=== PATIENT | female | born 1975 | race Caucasian/White ===

== ENCOUNTER 2022-08-26 20:22 | Outpatient (REF) | payer BC, SELFPAY ==
[2022-08-31 08:10] LABS: Age Gdln ACOG Testing Note (.); HPV Aptima Negative (Negative); IGP, Aptima HPV, rfx 16/18,45 Note (.)
== END 2022-08-26 20:23 | disposition home or self-care (01) ==
LOC: LAB 20:22
PROVIDERS: PCP Family Medicine; Visit Provider Physician Assistant
DX: Z12.4 Encounter for screening for malignant neoplasm of cervix (principal); Z11.51 Encounter for screening for human papillomavirus (HPV)
CPT/HCPCS: 87624; G0145

== ENCOUNTER 2022-12-17 15:35 | Outpatient (OUT) | payer BC, SELFPAY ==
[2022-12-17 15:55] LABS: Basophils Percent Auto 0.5 % (0.2-2.0); Eosinophils Absolute Auto 0.1 10^3/uL (0.0-0.7); Eosinophils Percent Auto 1.5 % (0.9-7.0); Hematocrit 41.6 % (36.0-48.0); Immature Granulocytes Abs Auto 0.02 10^3/uL (0.00-0.03); Immature Granulocytes Pct Auto 0.3 % (0.0-0.5); Lymphocytes Absolute Auto 1.8 10^3/uL (1.2-3.8); Lymphocytes Percent Auto 27.1 % (20.5-60.0); Mean Corpuscular HGB Conc 31.3 g/dL (29.9-35.2); Mean Corpuscular Hemoglobin 28.3 pg (26.7-34.0); Mean Corpuscular Volume 90.6 fL (81.0-99.0); Mean Platelet Volume 10.5 fL (9.5-13.5); Monocytes Absolute Auto 0.5 10^3/uL (0.3-0.8); Monocytes Percent Auto 8.3 % (1.7-12.0); Neutrophils Absolute Auto 4.1 10^3/uL (1.4-6.5); Neutrophils Percent Auto 62.3 % (43.0-75.0); Platelet Count 223 10^3/uL (150-450); Red Blood Count 4.59 10^6/uL (4.20-5.40); Red Cell Distribution Width 13.6 % (11.0-15.0); White Blood Count 6.5 10^3/uL (4.0-11.0)
[2022-12-17 16:15] LABS: Estimated Average Glucose 91 mg/dL; Glycohemoglobin A1C 4.8 % (4.5-6.2)
[2022-12-17 16:26] LABS: Alanine Aminotransferase 37 U/L (14-59); Albumin Globulin Ratio 1.1; Albumin Level 3.5 g/dL (3.4-5.0); Alkaline Phosphatase 68 U/L (46-116); Anion Gap 9.8; Aspartate Amino Transferase 22 U/L (15-37); BUN Creatinine Ratio 13.2; Bilirubin Direct 0.1 mg/dL (0.0-0.2); Bilirubin Total 0.4 mg/dL (0.2-1.0); Calcium 8.8 mg/dL (8.5-10.1); Carbon Dioxide 30.8 mmol/L (21.0-32.0); Chloride 101 mmol/L (98-107); Chol HDL Ratio 2.9; Cholesterol 226 mg/dL (<=200); Estimated GFR (African America >60 (>=60); Estimated GFR (Non-African Ame >60 (>=60); Globulin 3.3 g/dL; Glucose 85 mg/dL (74-106); HDL Cholesterol 79 mg/dL (40-60); Potassium 3.6 mmol/L (3.5-5.1); Sodium 138 mmol/L (136-145); Total Protein 6.8 g/dL (6.4-8.2); Triglycerides 67 mg/dL (<=150); VLDL CHOLESTEROL 13.4 mg/dL
== END 2022-12-17 15:36 | disposition home or self-care (01) ==
LOC: LAB 15:37
PROVIDERS: PCP Family Medicine; Visit Provider Family Medicine
DX: Z00.00 Encounter for general adult medical examination without abnormal findings (principal)
CPT/HCPCS: 36415; 80048; 80061; 80076; 83036; 84443; 85025

== ENCOUNTER 2023-07-09 11:11 | Outpatient (OUT) | payer BC, SELFPAY ==
--- OUTSIDE RECORDS SUMMARY | 2023-07-09 11:25 | XMS_ITS | CCD ---
Author Organization [facility] Care Team Providers Care Staff Development Coordinator Rn Name Role Phone ANJELICA ., DR JARVIS Admitting Unavailable ANJELICA ., DR JARVIS Attending Unavailable NADERER, DR ERMIAS Chávez Primary Care Unavailable ANJELICA ., DR JARVIS Consulting Unavailable ZIEBER, DR ADARSH Diego Consulting Unavailable NADERER, DR ERMIAS Chávez Admitting Unavailable NADERER, DR ERMIAS Chávez Attending Unavailable NADERER, DR ERMIAS Chávez Primary Care Unavailable NADERER, DR ERMIAS Chávez Consulting Unavailable NADERER, DR ERMIAS Chávez Admitting Unavailable NADERER, DR ERMIAS Chávez Attending Unavailable NADERER, DR ERMIAS Chávez Primary Care Unavailable NADERER, DR ERMIAS Chávez Consulting Unavailable NADERER, ERMIAS Attending Unavailable Allergies Allergy Classification Reported Allergen(s) Allergy Type Date of Onset Reaction(s) Facility (1 source) Omeprazole Drug Allergy [facility] Repository Problems Active Problems Problem Classification Problem Date Documented Da te Episodic/Chronic Other screening for suspected conditions (not mental disorders or infectious disease) (4 sources) Encounter for screening mammogram for malignant neoplasm of breast; Translations: [ENC SCR MAMMO MALIG NEOPLASM BREAST] Onset: 05-07-2022 Episodic Unclassified (2 sources) CONTACT W/AND (SUSP) EXPOS COVID-19; Translations: [CONTACT W/AND (SUSP) EXPOS COVID-19] Onset: 01-31-2022 Viral infection (1 source) COVID-19; Translations: [COVID-19] Onset: 01-31-2022 Past or Other Problems Problem Classification Problem Date Documented Da te Episodic/Chronic Unclassified (1 source) CONTACT W/AND (SUSP) EXPOS COVID-19; Translations: [CONTACT W/AND (SUSP) EXPOS COVID-19] Onset: 01-27-2022 Results Test Name Value Interpretation Reference Range Facility MG MAMM SCREEN 3D ANDRY CADon 05-07-2022 MG MAMM SCREEN 3D ANDRY CAD Patient: SEBAS BARBER Exam Date: 05/07/2022 : 1975 Gender:F Ordering : DR SIMONA DEJESUS . Admission #: [id number] Family : Order #: [id number] CLICK HERE TO VIEW EXAM RADIOLOGY REPORT PROCEDURE: MAMMOGRAM SCREENING 3D BILATERAL CAD COMPARISON: MG MAMM DX 3D LT CAD, 07/25/2020. US BREAST LEFT LIMITED, 01/02/2020. MG MAMM ANDRY SCRN W CAD DIG, 03/06/2013. MG MAMM SCREEN 3D ANDRY CAD, 04/24/2021. INDICATIONS: Screening mammography Calculator Name NCI Breast Cancer Risk Assessment Tool 5 Year Breast Cancer Risk 1.20% Lifetime Breast Cancer Risk 12.80% Personal Breast Cancer No Personal Ovarian Cancer No Treatments None Family Cancers None LOCATION: [facility] BREAST COMPOSITION: Scattered areas fibroglandular density. FINDINGS: DIAGNOSTIC CATEGORY 1--NEGATIVE. RIGHT BREAST: No significant suspicious finding. No significant change has occurred. LEFT BREAST: No significant suspicious finding. No significant change has occurred. RECOMMENDATIONS: ROUTINE MAMMOGRAM AND CLINICAL EVALUATION IN 12 MONTHS. PLEASE NOTE: A NORMAL MAMMOGRAM DOES NOT EXCLUDE THE POSSIBILITY OF BREAST CANCER. A CLINICALLY SUSPICIOUS PALPABLE LUMP SHOULD BE BIOPSIED. Dictated by: Adarsh Jimenez M.D. on 05/08/2022 at 07:22 Approved by: Adarsh Jimenez M.D. on 05/08/2022 at 07:33 Normal [facility] Covid-19 PCR (CVDTBH)on 01-15 SARS-CoV-2 (COVID-19) RNA SINDI+probe Ql (Unsp spec) Detected Critically abnormal NOT DETECTED [facility] Comment on above: Result Comment: This test is not yet approved or cleared by the [place] FDA. When there are no FDA-approved or cleared tests available, and other criteria are met, FDA can make tests available under an emergency access mechanism called an Emergency Use Authorization (EUA). The EUA for this test is supported by the Har[employer] Rep[employer] of Health and Human Service's (HHS's) declaration that circumstances exist to justify the emergency use of in vitro diagnostics for the detection and/or diagnosis of the virus that causes COVID-19. This EUA will remain in effect (meaning this test can be used) for the duration of the COVID-19 declaration justifying emergency of IVDs, unless it is terminated or revoked by FDA (after which the test may no longer be used). Performed By: #### C VDTBH #### [facility] [address] [place] [address] Dr. Abby Kumar CBC AUTO DIFFon 12-04-2021 BASO # 0.0 103/ul Normal 0.0-0.1 [facility] Comment on above: Performed By: #### L IPID, TSH, BMP, LIVER #### [facility] [address] [place] [address] Dr. Abby Kumar Basophils/100 WBC (Bld) 0.4 % Normal 0.2-2.0 [facility] Comment on above: Performed By: #### L IPID, TSH, BMP, LIVER #### [facility] [address] [place] [address] Dr. Abby Kumar EO # 0.1 103/ul Normal 0.0-0.7 [facility] Comment on above: Performed By: #### L IPID, TSH, BMP, LIVER #### [facility] [address] [place] [address] Dr. Abby Kumar Eosinophils/100 WBC (Bld) 2.4 % Normal 0.9-7.0 [facility] Comment on above: Performed By: #### L IPID, TSH, BMP, LIVER #### [facility] [address] [place] [address] Dr. Abby Kumar Erythrocyte distribution width (RBC) [Ratio] 14.4 % Normal 11.0-15.0 [facility] Comment on above: Performed By: #### L IPID, TSH, BMP, LIVER #### [facility] [address] [place] [address] Dr. Abby Kumar Hematocrit (Bld) [Volume fraction] 41.0 % Normal 36.0-48.0 [facility] Comment on above: Performed By: #### L IPID, TSH, BMP, LIVER #### [facility] [address] [place] [address] Dr. Abby Kumar Hemoglobin (Bld) [Mass/Vol] 12.9 g/dL Normal 12.0-16.0 [facility] Comment on above: Performed By: #### L IPID, TSH, BMP, LIVER #### [facility] [address] [place] [address] Dr. Abby Kumar IG # 0.01 10e3/ul Normal 0.00-0.03 [facility] Comment on above: Performed By: #### L IPID, TSH, BMP, LIVER #### [facility] [address] [place] [address] Dr. Abby Kumar IG % 0.2 % Normal 0.0-0.5 [facility] Comment on above: Performed By: #### L IPID, TSH, BMP, LIVER #### [facility] [address] [place] [address] Dr. Abby Kumar LYMPH # 1.8 103/ul Normal 1.2-3.8 [facility] Comment on above: Performed By: #### L IPID, TSH, BMP, LIVER #### [facility] [address] [place] [address] Dr. Abby Kumar Lymphocytes/100 WBC (Bld) 35.7 % Normal 20.5-60.0 [facility] Comment on above: Performed By: #### L IPID, TSH, BMP, LIVER #### [facility] [address] [place] [address] Dr. Abby Kumar MANUAL DIFF REQ NO Normal [facility] Comment on above: Performed By: #### L IPID, TSH, BMP, LIVER #### [facility] [address] [place] [address] Dr. Abby Kumar MCH (RBC) [Entitic mass] 27.6 pg Normal 26.7-34.0 [facility] Comment on above: Performed By: #### L IPID, TSH, BMP, LIVER #### [facility] [address] [place] [address] Dr. Abby Kumar MCHC (RBC) [Mass/Vol] 31.5 g/dL Normal 29.9-35.2 [facility] Comment on above: Performed By: #### L IPID, TSH, BMP, LIVER #### [facility] [address] [place] [address] Dr. Abby Kumar MCV (RBC) [Entitic vol] 87.6 fL Normal 81.0-99.0 [facility] Comment on above: Performed By: #### L IPID, TSH, BMP, LIVER #### [facility] [address] [place] [address] Dr. Abby Kumar MONO # 0.4 103/ul Normal 0.3-0.8 [facility] Comment on above: Performed By: #### L IPID, TSH, BMP, LIVER #### [facility] [address] [place] [address] Dr. Abby Kumar Monocytes/100 WBC (Bld) 8.4 % Normal 1.7-12.0 [facility] Comment on above: Performed By: #### L IPID, TSH, BMP, LIVER #### [facility] [address] [place] [address] Dr. Abby Kumar NEUT # 2.6 103/ul Normal 1.4-6.5 [facility] Comment on above: Performed By: #### L IPID, TSH, BMP, LIVER #### [facility] [address] [place] [address] Dr. Abby Kumar Neutrophils/100 WBC (Bld) 52.9 % Normal 43.0-75.0 [facility] Comment on above: Performed By: #### L IPID, TSH, BMP, LIVER #### [facility] [address] [place] [address] Dr. Abby Kumar Platelet mean volume (Bld) [Entitic vol] 11.0 fL Normal 9.5-13.5 [facility] Comment on above: Performed By: #### L IPID, TSH, BMP, LIVER #### [facility] [address] [place] [address] Dr. Abby Kumar PLT 230 103/ul Normal 150-450 [facility] Comment on above: Performed By: #### L IPID, TSH, BMP, LIVER #### [facility] [address] [place], [place] [id number] Dr. Abby Kumar RBC 4.68 106/ul Normal 4.20-5.40 [facility] Comment on above: Performed By: #### L IPID, TSH, BMP, LIVER #### [facility] [address] [place] [address] Dr. Abby Kumar WBC 5.0 103/ul Normal 4.0-11.0 [facility] Comment on above: Performed By: #### L IPID, TSH, BMP, LIVER #### [facility] [address] [place] [address] Dr. Abby Kumar GLYCOHEMOGLOBIN A1Con 2021 ADA RECOMMENDATION SEE BELOW Normal [facility] Comment on above: Result Comment: ADA RECOMMENDED LIMIT 4.0 - 6.0 ADA THERAPEUTIC TARGET < 7.0 ACTION SUGGESTED > 7.0 Performed By: #### A 1C #### [facility] [address] [place] [address] Dr. Abby Kumar Glucose [Mass/Vol] 114 mg/dL Normal [facility] Comment on above: Performed By: #### A 1C #### [facility] [address] [place] [address] Dr. Abby Kumar HbA1c (Bld) [Mass fraction] 5.6 % Normal 4.5-6.2 [facility] Comment on above: Performed By: #### A 1C #### [facility] [address] [place] [address] Dr. Abby Kumar IRONon 12-04-2021 Iron [Mass/Vol] 84.0 ug/dL Normal 50.0-170.0 [facility] Comment on above: Performed By: #### V ITB12, IRON, VITAD #### [facility] [address] [place] [address] Dr. Abby Kumar LIPID PROFILEon 12-04-2021 CHOL-HDL RATIO NORM SEE BELOW Normal [facility] Comment on above: Result Comment: 3.3 - 4.4 LOW RISK 4.4 - 7.1 AVERAGE RISK 7.1 - 11.0 MODERATE RISK >11.0 HIGH RISK Performed By: #### L IPID, TSH, BMP, LIVER #### [facility] [address] [address] [address] Abby Kumar Cholesterol [Mass/Vol] 213 mg/dL Critically high <=200 [facility] Comment on above: Performed By: #### L IPID, TSH, BMP, LIVER #### [facility] [address] [address] [address] Abby Kumar Cholesterol in HDL [Mass/Vol] 67 mg/dL Critically high 40-60 [facility] Comment on above: Performed By: #### L IPID, TSH, BMP, LIVER #### [facility] [address] [address] [address] Abby Kumar Cholesterol in LDL [Mass/Vol] 135.0 mg/dL Normal [facility] Comment on above: Performed By: #### L IPID, TSH, BMP, LIVER #### [facility] [address] [address] [address] Abby Kumar Cholesterol.total/Ch olesterol in HDL [Mass ratio] 3.2 {ratio} Normal [facility] Comment on above: Performed By: #### L IPID, TSH, BMP, LIVER #### [facility] [address] [address] [address] Abby Kumar HDL NORMAL > or = 60 mg/dl - LOW CARDIOVASCULAR RISK <40 mg/dl - HIGH CARDIOVASCULAR RISK Normal [facility] Comment on above: Performed By: #### L IPID, TSH, BMP, LIVER #### [facility] [address] [address] [address] Abby Kumar LDL CALC NORMAL SEE BELOW Normal [facility] Comment on above: Result Comment: <100 mg/dl OPTIMAL 100 - 129 mg/dl NEAR OR ABOVE OPTIMAL 130 - 159 mg/dl BORDERLINE HIGH 160 - 189 mg/dl HIGH >190 mg/dl VERY HIGH Performed By: #### L IPID, TSH, BMP, LIVER #### [facility] [address] [address] [address] Abby Kumar Triglyceride [Mass/Vol] 55 mg/dL Normal <=150 [facility] Comment on above: Performed By: #### L IPID, TSH, BMP, LIVER #### [facility] [address] [place] [address] Dr. Abby Kumar VLDL CALC 11.0 mg/dL Normal [facility] Comment on above: Performed By: #### L IPID, TSH, BMP, LIVER #### [facility] [address] [place] [address] Dr. Abby Kumar LIVER PROFILEon 12-04-2021 Albumin [Mass/Vol] 3.7 g/dL Normal 3.4-5.0 [facility] Comment on above: Performed By: #### L IPID, TSH, BMP, LIVER #### [facility] [address] [place] [address] Dr. Abby Kumar Albumin/Globulin [Mass ratio] 1.1 {ratio} Normal [facility] Comment on above: Performed By: #### L IPID, TSH, BMP, LIVER #### [facility] [address] [place] [address] Dr. Abby Kumar ALP [Catalytic activity/Vol] 58 U/L Normal 46-116 [facility] Comment on above: Performed By: #### L IPID, TSH, BMP, LIVER #### [facility] [address] [place] [address] Dr. Abby Kumar ALT [Catalytic activity/Vol] 12 U/L Critically low 14-59 [facility] Comment on above: Performed By: #### L IPID, TSH, BMP, LIVER #### [facility] [address] [place] [address] Dr. Abby Kumar AST [Catalytic activity/Vol] 10 U/L Critically low 15-37 [facility] Comment on above: Performed By: #### L IPID, TSH, BMP, LIVER #### [facility] [address] [place] [address] Dr. Abby Kumar BILI, CONJUGATED 0.1 mg/dL Normal 0.0-0.[address] [facility] Comment on above: Performed By: #### L IPID, TSH, BMP, LIVER #### [facility] [address] [place] [address] Dr. Abby Kumar Bilirubin [Mass/Vol] 0.4 mg/dL Normal 0.2-1.0 [facility] Comment on above: Performed By: #### L IPID, TSH, BMP, LIVER #### [facility] [address] [address] [address] Abby Kumar Globulin (S) [Mass/Vol] 3.5 g/dL Normal [facility] Comment on above: Performed By: #### L IPID, TSH, BMP, LIVER #### [facility] [address] [place] [address] Dr. Abby Kumar Protein [Mass/Vol] 7.2 g/dL Normal 6.4-8.2 [facility] Comment on above: Performed By: #### L IPID, TSH, BMP, LIVER #### [facility] [address] [place] [address] Dr. Abby Kumar PROF CHEM 8 (BAS METB)on Anion gap [Moles/Vol] 11.7 mmol/L Normal [facility] Comment on above: Performed By: #### L IPID, TSH, BMP, LIVER #### [facility] [address] [address] [address] Abby Kumar Calcium [Mass/Vol] 8.6 mg/dL Normal 8.5-10.1 [facility] Comment on above: Performed By: #### L IPID, TSH, BMP, LIVER #### [facility] [address] [place] [address] Dr. Abby Kumar Chloride [Moles/Vol] 105 mmol/L Normal 98-107 [facility] Comment on above: Performed By: #### L IPID, TSH, BMP, LIVER #### [facility] [address] [address] [address] Abby Kumar CO2 [Moles/Vol] 27.4 mmol/L Normal 21.0-32.0 [facility] Comment on above: Performed By: #### L IPID, TSH, BMP, LIVER #### [facility] [address] [address] [address] Abby Kumar Creatinine [Mass/Vol] 0.80 mg/dL Normal 0.55-1.02 [facility] Comment on above: Performed By: #### L IPID, TSH, BMP, LIVER #### [facility] [address] [address] [address] Abby Kumar EGFR-AF INDONESIAN >60 Normal >=[address] [facility] Comment on above: Performed By: #### L IPID, TSH, BMP, LIVER #### [facility] [address] [address] [address] Abby Kumar EGFR-NON AF INDONESIAN >60 Normal >=60 [facility] Comment on above: Performed By: #### L IPID, TSH, BMP, LIVER #### [facility] [address] [place] [address] Dr. Abby Kumar Glucose [Mass/Vol] 74 mg/dL Normal 74-106 [facility] Comment on above: Performed By: #### L IPID, TSH, BMP, LIVER #### [facility] [address] [place] [address] Dr. Abby Kumar Potassium [Moles/Vol] 4.1 mmol/L Normal 3.5-5.1 [facility] Comment on above: Performed By: #### L IPID, TSH, BMP, LIVER #### [facility] [address] [place] [address] Dr. Abby Kumar Sodium [Moles/Vol] 140 mmol/L Normal 136-145 [facility] Comment on above: Performed By: #### L IPID, TSH, BMP, LIVER #### [facility] [address] [place] [address] Dr. Abby Kumar Urea nitrogen [Mass/Vol] 13.0 mg/dL Normal 7.0-18.0 [facility] Comment on above: Performed By: #### L IPID, TSH, BMP, LIVER #### [facility] [address] [place] [address] Dr. Abby Kumar Urea nitrogen/Creatinine [Mass ratio] 16.2 mg/mg Normal [facility] Comment on above: Performed By: #### L IPID, TSH, BMP, LIVER #### [facility] [address] [address] [address] Abby Kumar TSHon 12-04-2021 TSH 2.390 uIU/mL Normal 0.358-3.740 [facility] Comment on above: Performed By: #### L IPID, TSH, BMP, LIVER #### [facility] [address] [address] [address] Abby Kumar VITAMIN B12on 12-04-2021 Cobalamin (Vitamin B12) [Mass/Vol] 404.0 pg/mL Normal 193.0-986.0 [facility] Comment on above: Performed By: #### V ITB12, IRON, VITAD #### [facility] [address] [address] [address] Abby Kumar VITAMIN D 25 OHon 12-04-2021 VIT D 25-OH 36.0 ng/mL Normal [facility] Comment on above: Performed By: #### V ITB12, IRON, VITAD #### [facility] [address] [address] [address] Abby Kumar VIT D RANGES SEE BELOW Normal [facility] Comment on above: Result Comment: <20 ng/mL Vit D deficient 20 - <30 ng/mL Vit D insufficient 30 - 100 ng/mL Vit D sufficient >100 ng/mL Potential Toxicity Performed By: #### V ITB12, IRON, VITAD #### [facility] [address] [address] [address] Abby Kumar Encounters Encounter Date Encounter Type Care Provider Facility Start: 06-21-2023 End: 06-21-2023 ambulatory ERMIAS HARDY Not Available Start: 05-07-2022 End: 05-08-[address] SIMONA DEJESUS . Facility[facility] Start: 01-27-2022 End: 01-27-[address] ERMIAS HARDY Facility[facility] Start: 12-10-2021 Encounter for genera l adult medical examination without abnormal findings DR ERMIAS HARDY [facility] Start: 12-04-2021 End: 12-05-[address] ERMIAS HARDY Facility:[facility] Start: 12-04-2021 End: 12-05-2021 Encounter for general adult medical examination without abnormal findings DR ERMIAS HARDY Facility:[facility] Payers Date Payer Category Payer Unknown [id number] [id number] [id number] 1975 Unknown [id number] 2.16.84 [id number] 1975 Unknown [id number] 2.16.84 [id number] 1975 Unknown [id number] 2.16.84 [id number] 1958 Unknown [id number] Summary Purpose Family History No Family History Records FoundNo Family History Records Found Advance Directives No Advanced Directives Records FoundNo Advanced Directives Records Found Additional Source Comments INFORMATION SOURCE (unrecogn ized section and content) DATE CREATED AUTHOR 05/10/2022 [facility] DATE CREATED AUTHOR MITCH STEVEN 06/22/2023 [facility] EPIC FOR RECORDS PERTAINING TO PATIENTS WHO ARE OR HAVE BEEN ENROLLED IN A CHEMICAL DEPENDENCY/SUBSTANCEABUSE PROGRAM, SOME INFORMATION MAY BE OMITTED. This clinical summary was aggregated from multiple sources. Caution should be exercised in using it in the provision of clinical care. This summary normalizes information from multiple sources, and as a consequence, information in this document may materially change the coding, format and clinical context of patient data. In addition, data may be omitted in some cases. CLINICAL DECISIONS SHOULD BE BASED ON THE PRIMARY CLINICAL RECORDS. [facility] [employer] provides no warranty or guarantee of the accuracy or completeness of information in this document.
== END 2023-07-09 11:12 | disposition home or self-care (01) ==
LOC: PST 11:11
PROVIDERS: PCP Family Medicine; Visit Provider Surgery
DX: Z01.818 Encounter for other preprocedural examination (principal); Z12.11 Encounter for screening for malignant neoplasm of colon

== ENCOUNTER 2023-08-10 08:43 | Day surgery (SDC) | payer BC, SELFPAY ==
--- OUTSIDE RECORDS SUMMARY | 2023-08-10 08:48 | XMS_ITS | CCD ---
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 Admission #: [id number] Family : Order #: [id number] CLICK HERE TO VIEW EXAM RADIOLOGY REPORT [...] Treatments None Family Cancers None LOCATION: [facility] BREAST COMPOSITION: Scattered areas fibroglandular density. FINDINGS: [...] M.D. on 05/08/2022 at 07:33 Normal [facility] Covid-19 PCR (CVDTBH)on 01-15 SARS-CoV-2 (COVID-19) RNA SINDI+probe Ql (Unsp spec) Detected Critically abnormal NOT DETECTED [facility] Comment on above: Result Comment: This test is not yet approved or cleared by the [place] FDA. When there are no FDA-approved or cleared tests available, and other criteria are met, FDA can make tests available under an emergency access mechanism called an Emergency Use Authorization (EUA). The EUA for this test is supported by the [employer] of Health and Human Service's (HHS's) declaration [...] used). Performed By: #### C VDTBH #### [facility] [address] [place] [address] Dr. Abby Kumar CBC AUTO DIFFon 12-04-2021 BASO # 0.0 103/ul Normal 0.0-0.1 [facility] Comment on above: Performed By: #### L IPID, TSH, BMP, LIVER #### [facility] [address] [place] [address] Dr. Abby Kumar Basophils/100 WBC (Bld) 0.4 % Normal 0.2-2.0 [facility] Comment on above: Performed By: #### L IPID, TSH, BMP, LIVER #### [facility] [address] [place] [address] Dr. Abby Kumar EO # 0.1 103/ul Normal 0.0-0.7 [facility] Comment on above: Performed By: #### L IPID, TSH, BMP, LIVER #### [facility] [address] [place] [address] Dr. Abby Kumar Eosinophils/100 WBC (Bld) 2.4 % Normal 0.9-7.0 [facility] Comment on above: Performed By: #### L IPID, TSH, BMP, LIVER #### [facility] [address] [place] [address] Dr. Abby Kumar Erythrocyte distribution width (RBC) [Ratio] 14.4 % Normal 11.0-15.0 [facility] Comment on above: Performed By: #### L IPID, TSH, BMP, LIVER #### [facility] [address] [place] [address] Dr. Abby Kumar Hematocrit (Bld) [Volume fraction] 41.0 % Normal 36.0-48.0 [facility] Comment on above: Performed By: #### L IPID, TSH, BMP, LIVER #### [facility] [address] [place] [address] Dr. Abby Kumar Hemoglobin (Bld) [Mass/Vol] 12.9 g/dL Normal 12.0-16.0 [facility] Comment on above: Performed By: #### L IPID, TSH, BMP, LIVER #### [facility] [address] [place] [address] Dr. Abby Kumar IG # 0.01 10e3/ul Normal 0.00-0.03 [facility] Comment on above: Performed By: #### L IPID, TSH, BMP, LIVER #### [facility] [address] [place] [address] Dr. Abby Kumar IG % 0.2 % Normal 0.0-0.5 [facility] Comment on above: Performed By: #### L IPID, TSH, BMP, LIVER #### [facility] [address] [place] [address] Dr. Abby Kumar LYMPH # 1.8 103/ul Normal 1.2-3.8 [facility] Comment on above: Performed By: #### L IPID, TSH, BMP, LIVER #### [facility] [address] [place] [address] Dr. Abby Kumar Lymphocytes/100 WBC (Bld) 35.7 % Normal 20.5-60.0 [facility] Comment on above: Performed By: #### L IPID, TSH, BMP, LIVER #### [facility] [address] [place] [address] Dr. Abby Kumar MANUAL DIFF REQ NO Normal [facility] Comment on above: Performed By: #### L IPID, TSH, BMP, LIVER #### [facility] [address] [place] [address] Dr. Abby Kumar MCH (RBC) [Entitic mass] 27.6 pg Normal 26.7-34.0 [facility] Comment on above: Performed By: #### L IPID, TSH, BMP, LIVER #### [facility] [address] [place] [address] Dr. Abby Kumar MCHC (RBC) [Mass/Vol] 31.5 g/dL Normal 29.9-35.2 [facility] Comment on above: Performed By: #### L IPID, TSH, BMP, LIVER #### [facility] [address] [place] [address] Dr. Abby Kumar MCV (RBC) [Entitic vol] 87.6 fL Normal 81.0-99.0 [facility] Comment on above: Performed By: #### L IPID, TSH, BMP, LIVER #### [facility] [address] [place] [address] Dr. Abby Kumar MONO # 0.4 103/ul Normal 0.3-0.8 [facility] Comment on above: Performed By: #### L IPID, TSH, BMP, LIVER #### [facility] [address] [place] [address] Dr. Abby Kumar Monocytes/100 WBC (Bld) 8.4 % Normal 1.7-12.0 [facility] Comment on above: Performed By: #### L IPID, TSH, BMP, LIVER #### [facility] [address] [place] [address] Dr. Abby Kumar NEUT # 2.6 103/ul Normal 1.4-6.5 [facility] Comment on above: Performed By: #### L IPID, TSH, BMP, LIVER #### [facility] [address] [place] [address] Dr. Abby Kumar Neutrophils/100 WBC (Bld) 52.9 % Normal 43.0-75.0 [facility] Comment on above: Performed By: #### L IPID, TSH, BMP, LIVER #### [facility] [address] [place] [address] Dr. Abby Kumar Platelet mean volume (Bld) [Entitic vol] 11.0 fL Normal 9.5-13.5 [facility] Comment on above: Performed By: #### L IPID, TSH, BMP, LIVER #### [facility] [address] [place] [address] Dr. Abby Kumar PLT 230 103/ul Normal 150-450 [facility] Comment on above: Performed By: #### L IPID, TSH, BMP, LIVER #### [facility] [address] [address] [address] Abby Kumar RBC 4.68 106/ul Normal 4.20-5.40 [facility] Comment on above: Performed By: #### L IPID, TSH, BMP, LIVER #### [facility] [address] [place] [address] Dr. Abby Kumar WBC 5.0 103/ul Normal 4.0-11.0 [facility] Comment on above: Performed By: #### L IPID, TSH, BMP, LIVER #### [facility] [address] [place] [address] Dr. Abby Kumar GLYCOHEMOGLOBIN A1Con 2021 ADA RECOMMENDATION SEE BELOW Normal [facility] Comment on above: Result Comment: ADA RECOMMENDED LIMIT 4.0 - 6.0 ADA THERAPEUTIC TARGET < 7.0 ACTION SUGGESTED > 7.0 Performed By: #### A 1C #### [facility] [address] [place] [address] Dr. Abby Kumar Glucose [Mass/Vol] 114 mg/dL Normal [facility] Comment on above: Performed By: #### A 1C #### [facility] [address] [place] [address] Dr. Abby Kumar HbA1c (Bld) [Mass fraction] 5.6 % Normal 4.5-6.2 [facility] Comment on above: Performed By: #### A 1C #### [facility] [address] [place] [address] Dr. Abby Kumar IRONon 12-04-2021 Iron [Mass/Vol] 84.0 ug/dL Normal 50.0-170.0 [facility] Comment on above: Performed By: #### V ITB12, IRON, VITAD #### [facility] [address] [place] [address] Dr. Abby Kumar LIPID PROFILEon 12-04-2021 CHOL-HDL RATIO NORM SEE BELOW Normal [facility] Comment on above: Result Comment: 3.3 - 4.4 LOW RISK 4.4 - 7.1 AVERAGE RISK 7.1 - 11.0 MODERATE RISK >11.0 HIGH RISK Performed By: #### L IPID, TSH, BMP, LIVER #### [facility] [address] [address] [address] Abby Kumar Cholesterol [Mass/Vol] 213 mg/dL Critically high <=200 [facility] Comment on above: Performed By: #### L IPID, TSH, BMP, LIVER #### [facility] [address] [address] [address] Abby Kumar Cholesterol in HDL [Mass/Vol] 67 mg/dL Critically high 40-60 [facility] Comment on above: Performed By: #### L IPID, TSH, BMP, LIVER #### [facility] [address] [place] [address] Dr. Abby Kumar Cholesterol in LDL [Mass/Vol] 135.0 mg/dL Normal [facility] Comment on above: Performed By: #### L IPID, TSH, BMP, LIVER #### [facility] [address] [address] [address] Abby Kumar Cholesterol.total/Ch olesterol in HDL [Mass ratio] 3.2 {ratio} Normal [facility] Comment on above: Performed By: #### L IPID, TSH, BMP, LIVER #### [facility] [address] [place] [address] Dr. Abby Kumar HDL NORMAL > or = 60 mg/dl - LOW CARDIOVASCULAR RISK <40 mg/dl - HIGH CARDIOVASCULAR RISK Normal [facility] Comment on above: Performed By: #### L IPID, TSH, BMP, LIVER #### [facility] [address] [place] [address] Dr. Abby Kumar LDL CALC NORMAL SEE BELOW Normal [facility] Comment on above: Result Comment: <100 mg/dl OPTIMAL 100 - 129 mg/dl NEAR OR ABOVE OPTIMAL 130 - 159 mg/dl BORDERLINE HIGH 160 - 189 mg/dl HIGH >190 mg/dl VERY HIGH Performed By: #### L IPID, TSH, BMP, LIVER #### [facility] [address] [address] [address] Abby Kumar Triglyceride [Mass/Vol] 55 mg/dL Normal <=150 [facility] Comment on above: Performed By: #### L IPID, TSH, BMP, LIVER #### [facility] [address] [place] [address] Dr. Abby Kumar VLDL CALC 11.0 mg/dL Normal [facility] Comment on above: Performed By: #### L IPID, TSH, BMP, LIVER #### [facility] [address] [address] [address] Abby Kumar LIVER PROFILEon 12-04-2021 Albumin [Mass/Vol] 3.7 g/dL Normal 3.4-5.0 [facility] Comment on above: Performed By: #### L IPID, TSH, BMP, LIVER #### [facility] [address] [place] [address] Dr. Abby Kumar Albumin/Globulin [Mass ratio] 1.1 {ratio} Normal [facility] Comment on above: Performed By: #### L IPID, TSH, BMP, LIVER #### [facility] [address] [place] [address] Dr. Abby Kumar ALP [Catalytic activity/Vol] 58 U/L Normal 46-116 [facility] Comment on above: Performed By: #### L IPID, TSH, BMP, LIVER #### [facility] [address] [place] [address] Dr. Abby Kumar ALT [Catalytic activity/Vol] 12 U/L Critically low 14-59 [facility] Comment on above: Performed By: #### L IPID, TSH, BMP, LIVER #### [facility] [address] [place] [address] Dr. Abby Kumar AST [Catalytic activity/Vol] 10 U/L Critically low 15-37 [facility] Comment on above: Performed By: #### L IPID, TSH, BMP, LIVER #### [facility] [address] [place] [address] Dr. Abby Kumar BILI, CONJUGATED 0.1 mg/dL Normal 0.0-0.2 [facility] Comment on above: Performed By: #### L IPID, TSH, BMP, LIVER #### [facility] [address] [address] [address] Abby Kumar Bilirubin [Mass/Vol] 0.4 mg/dL Normal 0.2-1.0 [facility] Comment on above: Performed By: #### L IPID, TSH, BMP, LIVER #### [facility] [address] [address] [address] Abby Kumar Globulin (S) [Mass/Vol] 3.5 g/dL Normal [facility] Comment on above: Performed By: #### L IPID, TSH, BMP, LIVER #### [facility] [address] [place] [address] Dr. Abby Kumar Protein [Mass/Vol] 7.2 g/dL Normal 6.4-8.2 [facility] Comment on above: Performed By: #### L IPID, TSH, BMP, LIVER #### [facility] [address] [place] [address] Dr. Abby Kumar PROF CHEM 8 (BAS METB)on Anion gap [Moles/Vol] 11.7 mmol/L Normal [facility] Comment on above: Performed By: #### L IPID, TSH, BMP, LIVER #### [facility] [address] [place] [address] Dr. Abby Kumar Calcium [Mass/Vol] 8.6 mg/dL Normal 8.5-10.1 [facility] Comment on above: Performed By: #### L IPID, TSH, BMP, LIVER #### [facility] [address] [place] [address] Dr. Abby Kumar Chloride [Moles/Vol] 105 mmol/L Normal 98-107 [facility] Comment on above: Performed By: #### L IPID, TSH, BMP, LIVER #### [facility] [address] [place] [address] Dr. Abby Kumar CO2 [Moles/Vol] 27.4 mmol/L Normal 21.0-32.0 [facility] Comment on above: Performed By: #### L IPID, TSH, BMP, LIVER #### [facility] [address] [address] [address] Abby Kumar Creatinine [Mass/Vol] 0.80 mg/dL Normal 0.55-1.02 [facility] Comment on above: Performed By: #### L IPID, TSH, BMP, LIVER #### [facility] [address] [address] [address] Abby Kumar EGFR-AF [place] >60 Normal >=60 [facility] Comment on above: Performed By: #### L IPID, TSH, BMP, LIVER #### [facility] [address] [address] [address] Abby Kumar EGFR-NON AF [place] >60 Normal >=60 [facility] Comment on above: Performed By: #### L IPID, TSH, BMP, LIVER #### [facility] [address] [address] [address] Abby Kumar Glucose [Mass/Vol] 74 mg/dL Normal 74-106 [facility] Comment on above: Performed By: #### L IPID, TSH, BMP, LIVER #### [facility] [address] [address] [address] Abby Kumar Potassium [Moles/Vol] 4.1 mmol/L Normal 3.5-5.1 [facility] Comment on above: Performed By: #### L IPID, TSH, BMP, LIVER #### [facility] [address] [address] [address] Abby Kumar Sodium [Moles/Vol] 140 mmol/L Normal 136-145 [facility] Comment on above: Performed By: #### L IPID, TSH, BMP, LIVER #### [facility] [address] [address] [address] Abby Kumar Urea nitrogen [Mass/Vol] 13.0 mg/dL Normal 7.0-18.0 [facility] Comment on above: Performed By: #### L IPID, TSH, BMP, LIVER #### [facility] [address] [address] [address] Abby Kumar Urea nitrogen/Creatinine [Mass ratio] 16.2 mg/mg Normal [facility] Comment on above: Performed By: #### L IPID, TSH, BMP, LIVER #### [facility] [address] [address] [address] Abby Kumar TSHon 12-04-2021 TSH 2.390 uIU/mL Normal 0.358-3.740 [facility] Comment on above: Performed By: #### L IPID, TSH, BMP, LIVER #### [facility] [address] [address] [address] Abby Kumar VITAMIN B12on 12-04-2021 Cobalamin (Vitamin B12) [Mass/Vol] 404.0 pg/mL Normal 193.0-986.0 [facility] Comment on above: Performed By: #### V ITB12, IRON, VITAD #### [facility] [address] [place] [address] Dr. Abby Kumar VITAMIN D 25 OHon 12-04-2021 VIT D 25-OH 36.0 ng/mL Normal [facility] Comment on above: Performed By: #### V ITB12, IRON, VITAD #### [facility] [address] [address] [address] Abby Kumar VIT D RANGES SEE BELOW Normal [facility] Comment on above: Result Comment: <20 ng/mL Vit D deficient 20 - <30 ng/mL Vit D insufficient 30 - 100 ng/mL Vit D sufficient >100 ng/mL Potential Toxicity Performed By: #### V ITB12, IRON, VITAD #### [facility] [address] [address] [address] Abby Kumar Encounters Encounter Date Encounter Type Care Provider Facility Start: 07-27-2023 End: 07-27-2023 ambulatory ERMIAS HARDY Not Available Start: 07-07-2023 End: 07-07-2023 ambulatory KEE MARIANO Not Available Start: 06-21-2023 End: 06-21-2023 ambulatory ERMIAS HARDY Not Available Start: 05-07-2022 End: 05-08-[address] SIMONA DEJESUS . Facility[facility] Start: 01-27-2022 End: 01-27-[address] ERMIAS HARDY Facility[facility] Start: 12-10-2021 Encounter for genera l adult medical examination without abnormal findings DR ERMIAS HARDY [facility] Start: 12-04-2021 End: 12-05-[address] ERMIAS HARDY Facility:[facility] Start: 12-04-2021 End: 12-05-2021 Encounter for general adult medical examination without abnormal findings DR ERMIAS HARDY Facility:[facility] Payers Date Payer Category Payer Unknown [id number] 2.16.84 [id number] 1975 Unknown [id number] 2.16.84 [id number] 1975 Unknown [id number] 2.16.84 [id number] 1975 Unknown [id number] 2.16.84 [id number] 1976 Unknown [id number] 2.16.84 [id number] 1976 Unknown [id number] 2.16.84 [id number] 1959 Unknown [id number] Summary Purpose Family History No Family History Records FoundNo Family History Records Found Advance Directives No Advanced Directives Records FoundNo Advanced Directives Records Found Additional Source Comments INFORMATION SOURCE (unrecogn ized section and content) DATE CREATED AUTHOR 05/10/2022 [facility] DATE CREATED AUTHOR [facility]S [facility]GANIZ [facility] 07/28/2023 [facility] FOR RECORDS PERTAINING TO PATIENTS WHO ARE [...] BE BASED ON THE PRIMARY CLINICAL RECORDS. [employer] [facility]. provides no warranty or guarantee of the accuracy or completeness of information in this document.
[2023-08-10 09:04] VITALS: BP 154/85; PULSE 70; TEMP 35.8; O2SAT 96; BMI 35.7
[2023-08-10 09:11] LABS: HCG Qualitative NEGATIVE (NEGATIVE); Internal Control Within Normal Limits
[2023-08-10] MEDS: LACTATED RINGER'S SOLUTION 1,000 ML 50 ML IV (09:30)
[2023-08-10 11:05] VITALS: BP 135/61; PULSE 66; O2SAT 96
[2023-08-10 11:20] VITALS: BP 126/91; PULSE 62; O2SAT 98
--- NOTE | 2023-08-10 11:23 | W.PM.PROCNOT ---
Date of procedure: 08/10/23 Pre-op diagnosis: screening colonoscopy Post-op diagnosis: same as pre-op Procedure: Previous colonoscopy: never procedure: screening colonoscopy The patient was given IV conscious sedation.? The patient's SPO2 remained above 90% throughout the procedure. The colonoscope was inserted per rectum and advanced under direct vision to the cecum without difficulty.? The prep was good.? Findings: Terminal ileum os: normal Cecum/Ascending colon: normal Transverse colon: normal Descending/Sigmoid colon: normal Rectum/Anus: examined in normal and retroflexed positions and was normal Withdrawal Time was (minutes): 8 The colon was decompressed and the scope was removed.? The patient tolerated the procedure well. Recommendations/Plan: 1.? Lifestyle and dietary modifications as discussed 2.? F/U in 10 years 3.? Discussed with the family Anesthesia: MAC Surgeon: Oj Ferrell Estimated blood loss (mL): 0 Pathology: none sent Condition: stable Disposition: PACU
== END 2023-08-10 11:37 | disposition home or self-care (01) ==
PROVIDERS: PCP Family Medicine; Visit Provider Surgery
PROC: (CPT 00812; principal; 2023-08-10 10:05)
DX: Z12.11 Encounter for screening for malignant neoplasm of colon (principal); Z90.49 Acquired absence of other specified parts of digestive tract; Z90.721 Acquired absence of ovaries, unilateral; K21.9 Gastro-esophageal reflux disease without esophagitis
CPT/HCPCS: 00812; 45378; 36415; 84703; J2704

== ENCOUNTER 2023-08-23 13:51 | Outpatient (OUT) | payer BC, SELFPAY ==
--- NOTE | 2023-08-23 13:53 | MM_ITS ---
Patient Name: SEBAS BARBER MR#: [id number] : 1975 Exam Date: 08/23/2023 Ordering Doctor: DR Ankit Singleton . RADIOLOGY REPORT PROCEDURE: MM TOMOSYNTHESIS SCREENING BI COMPARISON: MG MAMM SCREEN 3D ANDRY CAD, 05/07/2022. MG MAMM SCREEN 3D ANDRY CAD, 04/24/2021. INDICATIONS: Screening Calculator Name NCI Breast Cancer Risk Assessment Tool 5 Year Breast Cancer Risk 1.20% Lifetime Breast Cancer Risk 12.70% Personal Breast Cancer No Personal Ovarian Cancer No Treatments None Family Cancers None LOCATION: [facility] BREAST COMPOSITION: There are scattered areas of fibroglandular density. FINDINGS: DIAGNOSTIC CATEGORY 1--NEGATIVE. NO CHANGE FROM COMPARISON ASSESSMENT. Scattered benign-appearing lymph nodes are present. RIGHT BREAST: No significant suspicious finding. LEFT BREAST: No significant suspicious finding. RECOMMENDATIONS: ROUTINE MAMMOGRAM AND CLINICAL EVALUATION IN 12 MONTHS. PLEASE NOTE: A NORMAL MAMMOGRAM DOES NOT EXCLUDE THE POSSIBILITY OF BREAST CANCER. A CLINICALLY SUSPICIOUS PALPABLE LUMP SHOULD BE BIOPSIED. Dictated by: Dewayne Aponte MD on 08/23/2023 at 15:17 Approved by: Dewayne Aponte MD on 08/23/2023 at 15:18
== END 2023-08-23 13:52 | disposition home or self-care (01) ==
LOC: MAMMO 13:51
PROVIDERS: PCP Family Medicine; Visit Provider Obstetrics & Gynecology
DX: Z12.31 Encounter for screening mammogram for malignant neoplasm of breast (principal)
CPT/HCPCS: 77063; 77067

== ENCOUNTER 2023-10-05 15:37 | Outpatient (OUT) | payer BC, SELFPAY ==
--- OUTSIDE RECORDS SUMMARY | 2023-10-05 15:52 | XMS_ITS | CCD ---
Author Organization [facility] Care Team Providers Care Insurance Claims Analyst Name Role Phone ANJELICA ., DR JARVIS [...] Facility (1 source) Omeprazole Drug Allergy [facility] Repository Problems Active Problems Problem Classification Problem [...] : DR SIMONA DEJESUS . Admission #: [id number] Family : Order #: [id number] CLICK HERE TO VIEW EXAM RADIOLOGY REPORT [...] Treatments None Family Cancers None LOCATION: [facility] BREAST COMPOSITION: Scattered areas fibroglandular density. FINDINGS: [...] M.D. on 05/08/2022 at 07:33 Normal [facility] Covid-19 PCR (CVDTBH)on 01-15 SARS-CoV-2 (COVID-19) RNA SINDI+probe Ql (Unsp spec) Detected Critically abnormal NOT DETECTED [facility] Comment on above: Result Comment: This test is not yet approved or cleared by the [place] FDA. When there are no FDA-approved or cleared tests available, and other criteria are met, FDA can make tests available under an emergency access mechanism called an Emergency Use Authorization (EUA). The EUA for this test is supported by the [place] of Health and Human Service's (HHS's) declaration [...] used). Performed By: #### C VDTBH #### [facility] [address] [place] [address] Dr. Abby Kumar CBC AUTO DIFFon 12-04-2021 BASO # 0.0 103/ul Normal 0.0-0.1 [facility] Comment on above: Performed By: #### L IPID, TSH, BMP, LIVER #### [facility] [address] [place] [address] Dr. Abby Kumar Basophils/100 WBC (Bld) 0.4 % Normal 0.2-2.0 [facility] Comment on above: Performed By: #### L IPID, TSH, BMP, LIVER #### [facility] [address] [place] [address] Dr. Abby Kumar EO # 0.1 103/ul Normal 0.0-0.7 [facility] Comment on above: Performed By: #### L IPID, TSH, BMP, LIVER #### [facility] [address] [place] [address] Dr. Abby Kumar Eosinophils/100 WBC (Bld) 2.4 % Normal 0.9-7.0 [facility] Comment on above: Performed By: #### L IPID, TSH, BMP, LIVER #### [facility] [address] [place] [address] Dr. Abby Kumar Erythrocyte distribution width (RBC) [Ratio] 14.4 % Normal 11.0-15.0 [facility] Comment on above: Performed By: #### L IPID, TSH, BMP, LIVER #### [facility] [address] [place] [address] Dr. Abby Kumar Hematocrit (Bld) [Volume fraction] 41.0 % Normal 36.0-48.0 [facility] Comment on above: Performed By: #### L IPID, TSH, BMP, LIVER #### [facility] [address] [place] [address] Dr. Abby Kumar Hemoglobin (Bld) [Mass/Vol] 12.9 g/dL Normal 12.0-16.0 [facility] Comment on above: Performed By: #### L IPID, TSH, BMP, LIVER #### [facility] [address] [place] [address] Dr. Abby Kumar IG # 0.01 10e3/ul Normal 0.00-0.03 [facility] Comment on above: Performed By: #### L IPID, TSH, BMP, LIVER #### [facility] [address] [place] [address] Dr. Abby Kumar IG % 0.2 % Normal 0.0-0.5 [facility] Comment on above: Performed By: #### L IPID, TSH, BMP, LIVER #### [facility] [address] [place] [address] Dr. Abby Kumar LYMPH # 1.8 103/ul Normal 1.2-3.8 [facility] Comment on above: Performed By: #### L IPID, TSH, BMP, LIVER #### [facility] [address] [place] [address] Dr. Abby Kumar Lymphocytes/100 WBC (Bld) 35.7 % Normal 20.5-60.0 [facility] Comment on above: Performed By: #### L IPID, TSH, BMP, LIVER #### [facility] [address] [place] [address] Dr. Abby Kumar MANUAL DIFF REQ NO Normal [facility] Comment on above: Performed By: #### L IPID, TSH, BMP, LIVER #### [facility] [address] [place] [address] Dr. Abby Kumar MCH (RBC) [Entitic mass] 27.6 pg Normal 26.7-34.0 [facility] Comment on above: Performed By: #### L IPID, TSH, BMP, LIVER #### [facility] [address] [place] [address] Dr. Abby Kumar MCHC (RBC) [Mass/Vol] 31.5 g/dL Normal 29.9-35.2 [facility] Comment on above: Performed By: #### L IPID, TSH, BMP, LIVER #### [facility] [address] [place] [address] Dr. Abby Kumar MCV (RBC) [Entitic vol] 87.6 fL Normal 81.0-99.0 [facility] Comment on above: Performed By: #### L IPID, TSH, BMP, LIVER #### [facility] [address] [place] [address] Dr. Abby Kumar MONO # 0.4 103/ul Normal 0.3-0.8 [facility] Comment on above: Performed By: #### L IPID, TSH, BMP, LIVER #### [facility] [address] [place] [address] Dr. Abby Kumar Monocytes/100 WBC (Bld) 8.4 % Normal 1.7-12.0 [facility] Comment on above: Performed By: #### L IPID, TSH, BMP, LIVER #### [facility] [address] [place] [address] Dr. Abby Kumar NEUT # 2.6 103/ul Normal 1.4-6.5 [facility] Comment on above: Performed By: #### L IPID, TSH, BMP, LIVER #### [facility] [address] [place] [address] Dr. Abby Kumar Neutrophils/100 WBC (Bld) 52.9 % Normal 43.0-75.0 [facility] Comment on above: Performed By: #### L IPID, TSH, BMP, LIVER #### [facility] [address] [place] [address] Dr. Abby Kumar Platelet mean volume (Bld) [Entitic vol] 11.0 fL Normal 9.5-13.5 [facility] Comment on above: Performed By: #### L IPID, TSH, BMP, LIVER #### [facility] [address] [place] [address] Dr. Abby Kumar PLT 230 103/ul Normal 150-450 [facility] Comment on above: Performed By: #### L IPID, TSH, BMP, LIVER #### [facility] [address] [address] [address] Abby Kumar RBC 4.68 106/ul Normal 4.20-5.40 [facility] Comment on above: Performed By: #### L IPID, TSH, BMP, LIVER #### [facility] [address] [place] [address] Dr. Abby Kumar WBC 5.0 103/ul Normal 4.0-11.0 [facility] Comment on above: Performed By: #### L IPID, TSH, BMP, LIVER #### [facility] [address] [place] [address] Dr. Abby Kumar GLYCOHEMOGLOBIN A1Con 2021 ADA RECOMMENDATION SEE BELOW Normal [facility] Comment on above: Result Comment: ADA RECOMMENDED LIMIT 4.0 - 6.0 ADA THERAPEUTIC TARGET < 7.0 ACTION SUGGESTED > 7.0 Performed By: #### A 1C #### [facility] [address] [place] [address] Dr. Abby Kumar Glucose [Mass/Vol] 114 mg/dL Normal [facility] Comment on above: Performed By: #### A 1C #### [facility] [address] [place] [address] Dr. Abby Kumar HbA1c (Bld) [Mass fraction] 5.6 % Normal 4.5-6.2 [facility] Comment on above: Performed By: #### A 1C #### [facility] [address] [place] [address] Dr. Abby Kumar IRONon 12-04-2021 Iron [Mass/Vol] 84.0 ug/dL Normal 50.0-170.0 [facility] Comment on above: Performed By: #### V ITB12, IRON, VITAD #### [facility] [address] [place] [address] Dr. Abby Kumar LIPID PROFILEon 12-04-2021 CHOL-HDL RATIO NORM SEE BELOW Normal [facility] Comment on above: Result Comment: 3.3 - 4.4 LOW RISK 4.4 - 7.1 AVERAGE RISK 7.1 - 11.0 MODERATE RISK >11.0 HIGH RISK Performed By: #### L IPID, TSH, BMP, LIVER #### [facility] [address] [address] [address] Abby Kumar Cholesterol [Mass/Vol] 213 mg/dL Critically high <=200 [facility] Comment on above: Performed By: #### L IPID, TSH, BMP, LIVER #### [facility] [address] [address] [address] Abby Kumar Cholesterol in HDL [Mass/Vol] 67 mg/dL Critically high 40-60 [facility] Comment on above: Performed By: #### L IPID, TSH, BMP, LIVER #### [facility] [address] [place] [address] Dr. Abby Kumar Cholesterol in LDL [Mass/Vol] 135.0 mg/dL Normal [facility] Comment on above: Performed By: #### L IPID, TSH, BMP, LIVER #### [facility] [address] [address] [address] Abby Kumar Cholesterol.total/Ch olesterol in HDL [Mass ratio] 3.2 {ratio} Normal [facility] Comment on above: Performed By: #### L IPID, TSH, BMP, LIVER #### [facility] [address] [place] [address] Dr. Abby Kumar HDL NORMAL > or = 60 mg/dl - LOW CARDIOVASCULAR RISK <40 mg/dl - HIGH CARDIOVASCULAR RISK Normal [facility] Comment on above: Performed By: #### L IPID, TSH, BMP, LIVER #### [facility] [address] [place] [address] Dr. Abby Kumar LDL CALC NORMAL SEE BELOW Normal [facility] Comment on above: Result Comment: <100 mg/dl OPTIMAL 100 - 129 mg/dl NEAR OR ABOVE OPTIMAL 130 - 159 mg/dl BORDERLINE HIGH 160 - 189 mg/dl HIGH >190 mg/dl VERY HIGH Performed By: #### L IPID, TSH, BMP, LIVER #### [facility] [address] [address] [address] Abby Kumar Triglyceride [Mass/Vol] 55 mg/dL Normal <=150 [facility] Comment on above: Performed By: #### L IPID, TSH, BMP, LIVER #### [facility] [address] [place] [address] Dr. Abby Kumar VLDL CALC 11.0 mg/dL Normal [facility] Comment on above: Performed By: #### L IPID, TSH, BMP, LIVER #### [facility] [address] [address] [address] Abby Kumar LIVER PROFILEon 12-04-2021 Albumin [Mass/Vol] 3.7 g/dL Normal 3.4-5.0 [facility] Comment on above: Performed By: #### L IPID, TSH, BMP, LIVER #### [facility] [address] [place] [address] Dr. Abby Kumar Albumin/Globulin [Mass ratio] 1.1 {ratio} Normal [facility] Comment on above: Performed By: #### L IPID, TSH, BMP, LIVER #### [facility] [address] [place] [address] Dr. Abby Kumar ALP [Catalytic activity/Vol] 58 U/L Normal 46-116 [facility] Comment on above: Performed By: #### L IPID, TSH, BMP, LIVER #### [facility] [address] [place] [address] Dr. Abby Kumar ALT [Catalytic activity/Vol] 12 U/L Critically low 14-59 [facility] Comment on above: Performed By: #### L IPID, TSH, BMP, LIVER #### [facility] [address] [place] [address] Dr. Abby Kumar AST [Catalytic activity/Vol] 10 U/L Critically low 15-37 [facility] Comment on above: Performed By: #### L IPID, TSH, BMP, LIVER #### [facility] [address] [place] [address] Dr. Abby Kumar BILI, CONJUGATED 0.1 mg/dL Normal 0.0-0.2 [facility] Comment on above: Performed By: #### L IPID, TSH, BMP, LIVER #### [facility] [address] [address] [address] Abby Kumar Bilirubin [Mass/Vol] 0.4 mg/dL Normal 0.2-1.0 [facility] Comment on above: Performed By: #### L IPID, TSH, BMP, LIVER #### [facility] [address] [address] [address] Abby Kumar Globulin (S) [Mass/Vol] 3.5 g/dL Normal [facility] Comment on above: Performed By: #### L IPID, TSH, BMP, LIVER #### [facility] [address] [place] [address] Dr. Abby Kumar Protein [Mass/Vol] 7.2 g/dL Normal 6.4-8.[address] [facility] Comment on above: Performed By: #### L IPID, TSH, BMP, LIVER #### [facility] [address] [place] [address] Dr. Abby Kumar PROF CHEM 8 (BAS METB)on Anion gap [Moles/Vol] 11.7 mmol/L Normal [facility] Comment on above: Performed By: #### L IPID, TSH, BMP, LIVER #### [facility] [address] [place] [address] Dr. Abby Kumar Calcium [Mass/Vol] 8.6 mg/dL Normal 8.5-10.[address] [facility] Comment on above: Performed By: #### L IPID, TSH, BMP, LIVER #### [facility] [address] [place] [address] Dr. Abby Kumar Chloride [Moles/Vol] 105 mmol/L Normal 98-107 [facility] Comment on above: Performed By: #### L IPID, TSH, BMP, LIVER #### [facility] [address] [place] [address] Dr. Abby Kumar CO2 [Moles/Vol] 27.4 mmol/L Normal 21.0-32.0 [facility] Comment on above: Performed By: #### L IPID, TSH, BMP, LIVER #### [facility] [address] [address] [address] Abby Kumar Creatinine [Mass/Vol] 0.80 mg/dL Normal 0.55-1.02 [facility] Comment on above: Performed By: #### L IPID, TSH, BMP, LIVER #### [facility] [address] [address] [address] Abby Kumar EGFR-AF CITIZEN [place] >60 Normal >=60 [facility] Comment on above: Performed By: #### L IPID, TSH, BMP, LIVER #### [facility] [address] [address] [address] Abby Kumar EGFR-NON AF CITIZEN OF [place] >60 Normal >=60 [facility] Comment on above: Performed By: #### L IPID, TSH, BMP, LIVER #### [facility] [address] [address] [address] Abby Kumar Glucose [Mass/Vol] 74 mg/dL Normal 74-[address] [facility] Comment on above: Performed By: #### L IPID, TSH, BMP, LIVER #### [facility] [address] [address] [address] Abby Kumar Potassium [Moles/Vol] 4.1 mmol/L Normal 3.5-5.1 [facility] Comment on above: Performed By: #### L IPID, TSH, BMP, LIVER #### [facility] [address] [address] [address] Abyb Kumar Sodium [Moles/Vol] 140 mmol/L Normal 136-[address] [facility] Comment on above: Performed By: #### L IPID, TSH, BMP, LIVER #### [facility] [address] [address] [address] Abby Kumar Urea nitrogen [Mass/Vol] 13.0 mg/dL Normal 7.0-18.0 [facility] Comment on above: Performed By: #### L IPID, TSH, BMP, LIVER #### [facility] [address] [address] [address] Abby Kumar Urea nitrogen/Creatinine [Mass ratio] 16.2 mg/mg Normal [facility] Comment on above: Performed By: #### L IPID, TSH, BMP, LIVER #### [facility] [address] [address] [address] Abby Kumar TSHon 12-04-2021 TSH 2.390 uIU/mL Normal 0.358-3.740 [facility] Comment on above: Performed By: #### L IPID, TSH, BMP, LIVER #### [facility] [address] [address] [address] Abby Kumar VITAMIN B12on 12-04-2021 Cobalamin (Vitamin B12) [Mass/Vol] 404.0 pg/mL Normal 193.0-986.0 [facility] Comment on above: Performed By: #### V ITB12, IRON, VITAD #### [facility] [address] [place] [address] Dr. Abby Kumar VITAMIN D 25 OHon 12-04-2021 VIT D 25-OH 36.0 ng/mL Normal [facility] Comment on above: Performed By: #### V ITB12, IRON, VITAD #### [facility] [address] [address] [address] Abby Kumar VIT D RANGES SEE BELOW Normal [facility] Comment on above: Result Comment: <20 ng/mL Vit D deficient 20 - <30 ng/mL Vit D insufficient 30 - 100 ng/mL Vit D sufficient >100 ng/mL Potential Toxicity Performed By: #### V ITB12, IRON, VITAD #### [facility] [address] [address] [address] Abby Kumar Encounters Encounter Date Encounter [...] without abnormal findings DR ERMIAS HARDY [facility] Start: 12-04-2021 End: 12-05-[address] ERMIAS HARDY Facility:[facility] Start: 12-04-2021 End: 12-05-2021 Encounter for general adult medical examination without abnormal findings DR ERMIAS HARDY Facility:[facility] Payers Date Payer Category Payer Unknown [id number] 2.16.84 [id number] 1975 Unknown [id number] 2.16.84 [id number] 1975 Unknown [id number] 2.16.84 [id number] 1975 Unknown [id number] 2.16.84 [id number] 1975 Unknown [id number] 2.16.84 [id number] 1975 Unknown [id number] 2.16.84 [id number] 1959 Unknown [id number] Summary Purpose Family History No Family History Records FoundNo Family History Records Found Advance Directives No Advanced Directives Records FoundNo Advanced Directives Records Found Additional Source Comments INFORMATION SOURCE (unrecogn ized section and content) DATE CREATED AUTHOR 05/10/2022 [facility] DATE CREATED AUTHOR [facility]2023 [facility] FOR RECORDS PERTAINING TO PATIENTS WHO [...] BE BASED ON THE PRIMARY CLINICAL RECORDS. [facility] [employer] [facility]. provides no warranty or guarantee of the accuracy or completeness of information in this document.
--- NOTE | 2023-10-05 16:02 | XR_ITS ---
The [address] [address] Patient Name: SEBAS BARBER MRN: [id number] date: 1975 Sex: F Assigned Patient Location: [facility] Current Patient Location: RAD Accession/Order Number: [id number] Exam Date: 10/05/2023 16:05 Report Date: 10/06/2023 10:45 At the request of: ERMIAS HARDY Procedure: XR hip RT min 2V PROCEDURE: XR hip RT min 2V HISTORY: Right Hip Pain COMPARISON: None. FINDINGS: BONES:Tiny calcification along superior rim of acetabulum. The humeral head remains seated within the acetabulum with normal articular surface contour. No significant joint space narrowing. SOFT TISSUES:No visible soft tissue swelling. EFFUSION:None visible. OTHER: Negative. XR/XR hip RT min 2V IMPRESSION: 1. Small degenerative osteophyte versus fracture fragment along superior rim of acetabulum. Degenerative changes are favored. 2. Otherwise unremarkable right hip. Electronically authenticated by: THIEN KRISHNAMURTHY Date: 10/06/2023 10:45
--- NOTE | 2023-10-05 16:15 | XR_ITS ---
The [address] [address] Patient Name: SEBAS BARBER MRN: [id number] date: 1975 Sex: F Assigned Patient Location: [facility] Current Patient Location: [facility] Accession/Order Number: [id number] Exam Date: 10/05/2023 16:05 Report Date: 10/06/2023 10:51 At the request of: ERMIAS HARDY Procedure: XR lumbar spine 2-3V EXAMINATION: XR lumbar spine 2-3V HISTORY: Chronic Bilateral Low Back PAin COMPARISON: No relevant comparison available. FINDINGS: BONES: Mild degenerative facet arthropathy L4-5, L5-S1. No significant spondylosis, scoliosis, fracture, or visible bony lesion. DISC SPACES: No significant disc height narrowing, subluxation, or endplate abnormality. PARASPINOUS: Negative. No paraspinous abnormality is seen. OTHER: Negative. XR/XR lumbar spine 2-3V IMPRESSION: 1. Mild degenerative changes of lower lumbar spine. Consider MRI for further evaluation if symptoms persist. Electronically authenticated by: THIEN KRISHNAMURTHY Date: 10/06/2023 10:51
--- NOTE | 2023-10-05 16:15 | XR_ITS ---
The [address] [address] Patient Name: SEBAS BARBER MRN: [id number] date: 1975 Sex: F Assigned Patient Location: [facility] Current Patient Location: Accession/Order Number: [id number] Exam Date: 10/05/2023 16:05 Report Date: 10/06/2023 10:43 At the request of: ERMIAS HARDY Procedure: XR knee RT 3V PROCEDURE: XR knee RT 3V HISTORY: Right Knee Pain COMPARISON: None. FINDINGS: BONES:No fracture, acute abnormality, or significant arthropathy. SOFT TISSUES:No visible soft tissue swelling. EFFUSION:None visible. OTHER: Negative. XR/XR knee RT 3V IMPRESSION: 1. No acute bone abnormality or significant degenerative changes. Electronically authenticated by: THIEN KRISHNAMURTHY Date: 10/06/2023 10:43
== END 2023-10-05 15:38 | disposition home or self-care (01) ==
LOC: RAD 15:41
PROVIDERS: PCP Family Medicine; Visit Provider Family Medicine
DX: M25.561 Pain in right knee (principal); M54.41 Lumbago with sciatica, right side; G89.29 Other chronic pain; M51.36 Other intervertebral disc degeneration, lumbar region
CPT/HCPCS: 72100; 73502; 73562

== ENCOUNTER 2024-02-06 20:17 | Emergency (ER) | payer BC, SELFPAY ==
[2024-02-06 20:21] VITALS: BP 160/100; PULSE 67; O2SAT 100; BMI 33.5
--- OUTSIDE RECORDS SUMMARY | 2024-02-06 20:22 | XMS_ITS | CCD ---
Author Organization [facility] Care Team Providers Care Foreign Exchange Dealer Name Role Phone ANJELICA ., DR JARVIS Admitting Unavailable ANJELICA ., DR JARVIS Attending Unavailable NADERER, DR EDY Chávez Primary Care Unavailable ANJELICA ., DR JARVIS Consulting Unavailable ZIEBER, DR ADARSH Diego Consulting Unavailable NADERER, DR EDY Chávez Admitting Unavailable NADERER, DR EDY Chávez Attending Unavailable NADERER, DR EDY Chávez Primary Care Unavailable NADEREJohnathon, DR EDY Chávez Consulting Unavailable NADERER, DR EDY Chávez Admitting Unavailable NADERER, DR EDY Chávez Attending Unavailable NADERER, DR EDY Chávez Primary Care Unavailable NADERER, DR EDY Chávez Consulting Unavailable Edy Hardy MD Unavailable Edy Hardy MD Primary Care Provider HAYLEY, EDY Attending Unavailable KEE MARIANO Attending Unavailable NADERER, EDY Referring Unavailable NADERER, EDY Attending Unavailable NADEREJohnathon, EDY Attending Unavailable NADERER, EDY Attending Unavailable NADERER, EDY Attending Unavailable Allergies Allergy Classification Reported Allergen(s) Allergy Type Date of Onset Reaction(s) Facility (1 source) Omeprazole Drug Allergy [facility] Repository (10 sources) Omeprazole Drug Allergy 07-14-2022 Unknown [facility] Medications Current Medications Medication Drug Class(es) Dates Sig (Normalized) Sig (Original) eletriptan 40 mg oral tablet (10 sources) Serotonin-1b and Serotonin-1d Receptor Agonist Start: 03-03-2023 eletriptan (Relpax) 40 MG tablet Indications: Non-refractory chronic migraine without aura (CMS/HCC) Take 1 tablet (40 mg) by mouth 1 (one) time if needed for migraine 1 PO at onset of BOWMAN; May repeat in 2 hours x one 9 tablet 5 03/03/2023 Active lamoTRIgine 100 mg oral tablet (6 sources) Mood Stabilizer, Anti-epileptic Agent Start: 12-20-2023 take 1 tablet by mouth at bedtime lamoTRIgine (LaMICtal) 100 MG tablet Indications: MDD (major depressive disorder), recurrent episode, moderate (CMS/HCC) Take 1 tablet (100 mg) by mouth at bedtime 30 tablet 5 12/20/2023 Active Start: 12-20-2023 take 1 tablet by yasmani th at bedtime lamoTRIgine (LaMICtal) 100 MG tablet Indications: MDD (major depressive disorder), recurrent episode, moderate (CMS/HCC) Take 1 tablet (100 mg) by mouth at bedtime 30 tablet 5 12/20/2023 Active Start: 12-09-2023 End: 12-20-2023 take 1 tablet by mouth at bedtime, then take 2 tablets by mouth at bedtime lamoTRIgine (LaMICtal) 25 MG tablet Indications: MDD (major depressive disorder), recurrent episode, moderate (CMS/HCC) TAKE 1 TABLET BY MOUTH AT BEDTIME FOR 2 WEEKS THEN 2 TABLETS AT BEDTIME 180 tablet 1 12/09/2023 12/20/2023 Discontinued (Reorder) 24 hr metFORMIN hydrochloride 500 mg extended release oral tablet (2 sources) Biguanide Start: 12-20-2023 take 1 tablet by mouth every twenty-four hours at mealtime metFORMIN XR (Glucophage-XR) 500 MG 24 hr tablet Indications: PCOS (polycystic ovarian syndrome) Take 1 tablet (500 mg) by mouth in the evening. Take with meals Do not crush, chew, or split. 30 tablet 5 12/20/2023 Active Start: 12-20-2023 take 1 tablet by yasmani th every twenty-four hours at mealtime metFORMIN XR (Glucophage-XR) 500 MG 24 hr tablet Indications: PCOS (polycystic ovarian syndrome) Take 1 tablet (500 mg) by mouth in the evening. Take with meals Do not crush, chew, or split. 30 tablet 5 12/20/2023 Active Multiple Vitamin (Multi Vitamin) tablet (10 sources) End: 12-20-2023 Multiple Vitamin (Multi Sharon min) tablet 1 (one) time each day at the same time. 12/20/2023 Discontinued Multiple Vitamin (Multi Vitamin) tablet 1 (one) time each day at the same time. Active pantoprazole 40 mg delayed release oral tablet (10 sources) Proton Pump Inhibitor Start: 09-20-2023 take 1 tablet by mouth before mealtime pantoprazole (ProtoNix) 40 MG EC tablet Indications: Gastroesophageal reflux disease without esophagitis TAKE 1 TABLET BY MOUTH IN THE MORNING BEFORE MEALS, DO NOT CRUSH, CHEW, OR SPLIT 30 tablet 3 09/20/2023 Active temazepam 30 mg oral capsule (11 sources) Benzodiazepine Start: 08-20-2023 End: 12-13-2023 temazepam (Restoril) 30 MG capsule Indications: Primary insomnia TAKE 1 CAPSULE AT BEDTIME 90 capsule 12/13/2023 Active tiZANidine 4 mg oral tablet (6 sources) Central alpha-2 Adrenergic Agonist Start: 11-02-2023 take 1 tablet by mouth three times daily as needed for muscle spasms tiZANidine (Zanaflex) 4 MG tablet Indications: Lumbar degenerative disc disease Take 1 tablet (4 mg) by mouth 3 (three) times a day as needed for muscle spasms 60 tablet 2 11/02/2023 Active traMADol hydrochloride 50 mg oral tablet (2 sources) Opioid Agonist Start: 11-02-2023 End: 11-09-2023 take 1 tablet by mouth four times daily as needed for pain traMADol (Ultram) 50 MG tablet Indications: Lumbar degenerative disc disease Take 1 tablet (50 mg) by mouth 4 (four) times a day as needed for severe pain for up to 7 days 28 tablet 11/02/2023 11/09/2023 Active Completed/Discontinued Medications Medication Drug Class(es) Dates Sig (Normalized) Sig (Original) buPROPion hydrochloride 100 mg oral tablet (6 sources) Aminoketone Start: 07-27-2023 End: 11-02-2023 take 1 tablet by mouth in the morning, then take 1 tablet by mouth in the evening, then take 1 tablet by mouth at bedtime buPROPion (Wellbutrin) 100 MG tablet Indications: MDD (major depressive disorder), recurrent episode, moderate (CMS/HCC) Take 1 tablet (100 mg) by mouth in the morning and 1 tablet (100 mg) in the evening and 1 tablet (100 mg) before bedtime. 90 tablet 5 07/27/2023 11/02/2023 Discontinued cyclobenzaprine hydrochloride 10 mg oral tablet (5 sources) Muscle Relaxant Start: 10-26-2023 End: 11-02-2023 take 1 tablet by mouth at bedtime cyclobenzaprine (Flexeril) 10 MG tablet Indications: Chronic bilateral low back pain with right-sided sciatica TAKE 1 TABLET BY MOUTH IN THE MORNING, EVENING, AND BEFORE BEDTIME 60 tablet 10/26/2023 11/02/2023 Discontinued Start: 10-05-2023 take 1 tablet by yasmani th in the morning, then take 1 tablet by mouth in the evening, then take 1 tablet by mouth at bedtime cyclobenzaprine (Flexeril) 10 MG tablet Indications: Chronic bilateral low back pain with right-sided sciatica Take 1 tablet (10 mg) by mouth in the morning and 1 tablet (10 mg) in the evening and 1 tablet (10 mg) before bedtime. 60 tablet 10/05/2023 Active phentermine hydrochloride 37.5 mg oral tablet (5 sources) Sympathomimetic Amine Anorectic Start: 10-05-2023 End: 11-04-2023 take 1 tablet by mouth before mealtime phentermine (Adipex-P) 37.5 MG tablet Indications: Obesity (BMI 30-39.9) Take 1 tablet (37.5 mg) by mouth in the morning. Take before meals. 30 tablet 10/05/2023 11/02/2023 Discontinued Problems Active Problems Problem Classification Problem Date Documented Date Episodic/Chronic Esophageal disorders (14 sources) Gastroesophageal reflux disease without esophagitis; Translations: [Gastro-esophageal reflux disease without esophagitis] Onset: 06-21-2023 06-21-2023 Chronic Essential hypertension (16 sources) Essential hypertension; Translations: [Essential (primary) hypertension] Onset: 07-14-2022 07-14-2022 Chronic Glaucoma (8 sources) Acute angle-closure glaucoma; Translations: [Acute angle-closure glaucoma, unspecified eye] Onset: 11-02-2023 11-02-2023 Chronic Headache; including migraine (10 sources) Migraine without aura, not refractory ; Translations: [Migraine without aura, not intractable, with status migrainosus] Onset: 07-14-2022 07-27-2023 Chronic Menstrual disorders (10 sources) Menorrhagia; Translations: [Excessive and frequent menstruation with regular cycle] Onset: 07-14-2022 07-14-2022 Chronic Miscellaneous mental health disorders (15 sources) Primary insomnia; Translations: [Primary insomnia] Onset: 07-14-2022 12-10-2023 Chronic Mood disorders (16 sources) Moderate recurrent major depression; Translations: [Major depressive disorder, recurrent, moderate] Onset: 06-21-2023 06-21-2023 Chronic Osteoarthritis (10 sources) Osteoarthritis of right hip joint; Translations: [Unilateral primary osteoarthritis, right hip] Onset: 10-05-2023 11-02-2023 Chronic Other endocrine disorders (10 sources) Hypoglycemia; Translations: [Hypoglycemia, unspecified] Onset: 07-14-2022 07-14-2022 Chronic Other endocrine disorders (8 sources) Polycystic ovary; Translations: [Polycystic ovarian syndrome] Onset: 02-28-2013 07-14-2022 Chronic Other endocrine disorders (4 sources) Polycystic ovary syndrome; Translations: [Polycystic ovarian syndrome] Onset: 02-28-2013 12-20-2023 Chronic Other hereditary and degenerative nervous system conditions (10 sources) Restless legs; Translations: [Restless legs syndrome] Onset: 07-14-2022 07-14-2022 Chronic Other nervous system disorders (10 sources) Carpal tunnel syndrome of right wrist; Translations: [Carpal tunnel syndrome, right upper limb] Onset: 07-14-2022 07-14-2022 Chronic Other nervous system disorders (10 sources) Carpal tunnel syndrome of left wrist; Translations: [Carpal tunnel syndrome, left upper limb] Onset: 07-14-2022 07-14-2022 Chronic Other non-traumatic joint disorders (11 sources) Pain in right knee; Translations: [Pain in joint, lower leg] Onset: 10-05-2023 10-05-2023 Episodic Other nutritional; endocrine; and metabolic disorders (12 sources) Body mass index 30+ - obesity; Translations: [Obesity, unspecified] Onset: 06-21-2023 06-21-2023 Chronic Other nutritional; endocrine; and metabolic disorders (4 sources) Severe obesity; Translations: [Class 2 severe obesity due to excess calories with serious comorbidity and body mass index (BMI) of 37.0 to 37.9 in adult ([facility])] Onset: 06-21-2023 12-20-2023 Chronic Spondylosis; intervertebral disc disorders; other back problems (10 sources) Degeneration of lumbar intervertebral disc; Translations: [Lumbar degenerative disc disease] Onset: 10-05-2023 11-02-2023 Chronic Unclassified (2 sources) CONTACT W/AND (SUSP) EXPOS COVID-19; Translations: [CONTACT W/AND (SUSP) EXPOS COVID-19] Onset: 01-31-2022 Viral infection (1 source) COVID-19; Translations: [COVID-19] Onset: 01-31-2022 Past or Other Problems Problem Classification Problem Date Documented Da te Episodic/Chronic Abdominal hernia (10 sources) Hernia of anterior abdominal wall; Translations: [Ventral hernia without obstruction or gangrene] Onset: 07-14-2022 07-14-2022 Episodic Deficiency and other anemia (10 sources) Iron deficiency anemia due to dietary causes; Translations: [Other iron deficiency anemias] Onset: 07-14-2022 07-14-2022 Episodic Other female genital disorders (10 sources) Lesion of cervix; Translations: [Noninflammatory disorder of cervix uteri, unspecified] Onset: 07-14-2022 07-14-2022 Episodic Other gastrointestinal disorders (10 sources) History of bypass of stomach; Translations: [Bariatric surgery status] Onset: 06-21-2023 06-21-2023 Episodic Other non-traumatic joint disorders (1 source) Hip pain; Translations: [Pain in right hip] Onset: 10-05-2023 10-05-2023 Episodic Other non-traumatic joint disorders (4 sources) Pain in right hip joint; Translations: [Pain in right hip] Onset: 10-05-2023 10-05-2023 Episodic Other screening for suspected conditions (not mental disorders or infectious disease) (14 sources) Encounter for screening mammogram for malignant neoplasm of breast; Translations: [Mammography abnormal] Onset: 05-07-2022 Episodic Spondylosis; intervertebral disc disorders; other back problems (5 sources) Chronic low back pain; Translations: [Lumbago with sciatica, right side] Onset: 10-05-2023 10-05-2023 Episodic Unclassified (1 source) CONTACT W/AND (SUSP) EXPOS COVID-19; Translations: [CONTACT W/AND (SUSP) EXPOS COVID-19] Onset: 01-27-2022 Viral infection (10 sources) Disease caused by 2019-nCoV; Translations: [COVID-19] Onset: 07-14-2022 Resolved: 06-21-2023 06-21-2023 Episodic Results Test Name Value Interpretation Reference Range Facility MG MAMM SCREEN 3D ANDRY CADon 05-07-2022 MG MAMM SCREEN 3D ANDRY CAD Patient: YALA BARBER Exam Date: 05/07/2022 : 1975 Gender:F Ordering : DR SIMONA DEJESUS . Admission #: [id number] Family : Order #: [id number] CLICK HERE TO VIEW EXAM RADIOLOGY REPORT [...] Treatments None Family Cancers None LOCATION: [facility] BREAST COMPOSITION: Scattered areas fibroglandular density. [...] M.D. on 05/08/2022 at 07:33 Normal [facility] Covid-19 PCR (CVDTBH)on 01-15 SARS-CoV-2 (COVID-19) RNA SINDI+probe Ql (Unsp spec) Detected Critically abnormal NOT DETECTED [facility] Comment on above: Result Comment: This test is not yet approved or cleared by the [place] FDA. When there are no FDA-approved or cleared tests available, and other criteria are met, FDA can make tests available under an emergency access mechanism called an Emergency Use Authorization (EUA). The EUA for this test is supported by the [place] of Health and Human Service's (HHS's) declaration [...] used). Performed By: #### C VDTBH #### [facility] [address] [place] [address] Dr. Abby Kumar CBC AUTO DIFFon 12-04-2021 BASO # 0.0 103/ul Normal 0.0-0.1 [facility] Comment on above: Performed By: #### L IPID, TSH, BMP, LIVER #### [facility] [address] [place] [address] Dr. Abby Kumar Basophils/100 WBC (Bld) 0.4 % Normal 0.2-2.0 [facility] Comment on above: Performed By: #### L IPID, TSH, BMP, LIVER #### [facility] [address] [place] [address] Dr. Abby Kumar EO # 0.1 103/ul Normal 0.0-0.7 [facility] Comment on above: Performed By: #### L IPID, TSH, BMP, LIVER #### [facility] [address] [place] [address] Dr. Abby Kumar Eosinophils/100 WBC (Bld) 2.4 % Normal 0.9-7.0 [facility] Comment on above: Performed By: #### L IPID, TSH, BMP, LIVER #### [facility] [address] [place] [address] Dr. Abby Kumar Erythrocyte distribution width (RBC) [Ratio] 14.4 % Normal 11.0-15.0 [facility] Comment on above: Performed By: #### L IPID, TSH, BMP, LIVER #### [facility] [address] [place] [address] Dr. Abby Kumar Hematocrit (Bld) [Volume fraction] 41.0 % Normal 36.0-48.0 [facility] Comment on above: Performed By: #### L IPID, TSH, BMP, LIVER #### [facility] [address] [place] [address] Dr. Abby Kumar Hemoglobin (Bld) [Mass/Vol] 12.9 g/dL Normal 12.0-16.0 [facility] Comment on above: Performed By: #### L IPID, TSH, BMP, LIVER #### [facility] [address] [place] [address] Dr. Abby Kumar IG # 0.01 10e3/ul Normal 0.00-0.03 [facility] Comment on above: Performed By: #### L IPID, TSH, BMP, LIVER #### [facility] [address] [place] [address] Dr. Abby Kumar IG % 0.2 % Normal 0.0-0.5 [facility] Comment on above: Performed By: #### L IPID, TSH, BMP, LIVER #### [facility] [address] [place] [address] Dr. Abby Kumar LYMPH # 1.8 103/ul Normal 1.2-3.8 [facility] Comment on above: Performed By: #### L IPID, TSH, BMP, LIVER #### [facility] [address] [place] [address] Dr. Abby Kumar Lymphocytes/100 WBC (Bld) 35.7 % Normal 20.5-60.0 [facility] Comment on above: Performed By: #### L IPID, TSH, BMP, LIVER #### [facility] [address] [place] [address] Dr. Abby Kumar MANUAL DIFF REQ NO Normal [facility] Comment on above: Performed By: #### L IPID, TSH, BMP, LIVER #### [facility] [address] [place] [address] Dr. Abby Kumar MCH (RBC) [Entitic mass] 27.6 pg Normal 26.7-34.0 [facility] Comment on above: Performed By: #### L IPID, TSH, BMP, LIVER #### [facility] [address] [place] [address] Dr. Abby Kumar MCHC (RBC) [Mass/Vol] 31.5 g/dL Normal 29.9-35.2 [facility] Comment on above: Performed By: #### L IPID, TSH, BMP, LIVER #### [facility] [address] [place] [address] Dr. Abby Kumar MCV (RBC) [Entitic vol] 87.6 fL Normal 81.0-99.0 [facility] Comment on above: Performed By: #### L IPID, TSH, BMP, LIVER #### [facility] [address] [place] [address] Dr. Abby Kumar MONO # 0.4 103/ul Normal 0.3-0.8 [facility] Comment on above: Performed By: #### L IPID, TSH, BMP, LIVER #### [facility] [address] [place] [address] Dr. Abby Kumar Monocytes/100 WBC (Bld) 8.4 % Normal 1.7-12.0 [facility] Comment on above: Performed By: #### L IPID, TSH, BMP, LIVER #### [facility] [address] [place] [address] Dr. Abby Kumar NEUT # 2.6 103/ul Normal 1.4-6.5 [facility] Comment on above: Performed By: #### L IPID, TSH, BMP, LIVER #### [facility] [address] [place] [address] Dr. Abby Kumar Neutrophils/100 WBC (Bld) 52.9 % Normal 43.0-75.0 [facility] Comment on above: Performed By: #### L IPID, TSH, BMP, LIVER #### [facility] [address] [place] [address] Dr. Abby Kumar Platelet mean volume (Bld) [Entitic vol] 11.0 fL Normal 9.5-13.5 [facility] Comment on above: Performed By: #### L IPID, TSH, BMP, LIVER #### [facility] [address] [address] [address] Abby Kumar PLT 230 103/ul Normal 150-450 [facility] Comment on above: Performed By: #### L IPID, TSH, BMP, LIVER #### [facility] [address] [address] [address] Abby Kumar RBC 4.68 106/ul Normal 4.20-5.40 [facility] Comment on above: Performed By: #### L IPID, TSH, BMP, LIVER #### [facility] [address] [address] [address] Abby Kumar WBC 5.0 103/ul Normal 4.0-11.0 [facility] Comment on above: Performed By: #### L IPID, TSH, BMP, LIVER #### [facility] [address] [address] [address] Abby Kumar GLYCOHEMOGLOBIN A1Con 2021 ADA RECOMMENDATION SEE BELOW Normal [facility] Comment on above: Result Comment: ADA RECOMMENDED LIMIT 4.0 - 6.0 ADA THERAPEUTIC TARGET < 7.0 ACTION SUGGESTED > 7.0 Performed By: #### A 1C #### [facility] [address] [address] [address] Abby Kumar Glucose [Mass/Vol] 114 mg/dL Normal [facility] Comment on above: Performed By: #### A 1C #### [facility] [address] [address] [address] Abby Kumar HbA1c (Bld) [Mass fraction] 5.6 % Normal 4.5-6.2 [facility] Comment on above: Performed By: #### A 1C #### [facility] [address] [address] [address] Abby Kumar IRONon 12-04-2021 Iron [Mass/Vol] 84.0 ug/dL Normal 50.0-170.0 [facility] Comment on above: Performed By: #### V ITB12, IRON, VITAD #### [facility] [address] [address] [address] Abby Kumar LIPID PROFILEon 12-04-2021 CHOL-HDL RATIO NORM SEE BELOW Normal [facility] Comment on above: Result Comment: 3.3 - 4.4 LOW RISK 4.4 - 7.1 AVERAGE RISK 7.1 - 11.0 MODERATE RISK >11.0 HIGH RISK Performed By: #### L IPID, TSH, BMP, LIVER #### [facility] [address] [address] [address] Abby Kumar Cholesterol [Mass/Vol] 213 mg/dL Critically high <=200 [facility] Comment on above: Performed By: #### L IPID, TSH, BMP, LIVER #### [facility] [address] [address] [address] Abby Kumar Cholesterol in HDL [Mass/Vol] 67 mg/dL Critically high 40-60 [facility] Comment on above: Performed By: #### L IPID, TSH, BMP, LIVER #### [facility] [address] [place] [address] Dr. Abby Kumar Cholesterol in LDL [Mass/Vol] 135.0 mg/dL Normal [facility] Comment on above: Performed By: #### L IPID, TSH, BMP, LIVER #### [facility] [address] [address] [address] Abby Kumar Cholesterol.total/Ch olesterol in HDL [Mass ratio] 3.2 {ratio} Normal [facility] Comment on above: Performed By: #### L IPID, TSH, BMP, LIVER #### [facility] [address] [address] [address] Abby Kumar HDL NORMAL > or = 60 mg/dl - LOW CARDIOVASCULAR RISK <40 mg/dl - HIGH CARDIOVASCULAR RISK Normal [facility] Comment on above: Performed By: #### L IPID, TSH, BMP, LIVER #### [facility] [address] [place] [address] Dr. Abby Kumar LDL CALC NORMAL SEE BELOW Normal [facility] Comment on above: Result Comment: <100 mg/dl OPTIMAL 100 - 129 mg/dl NEAR OR ABOVE OPTIMAL 130 - 159 mg/dl BORDERLINE HIGH 160 - 189 mg/dl HIGH >190 mg/dl VERY HIGH Performed By: #### L IPID, TSH, BMP, LIVER #### [facility] [address] [place] [address] Dr. Abby Kumar Triglyceride [Mass/Vol] 55 mg/dL Normal <=150 [facility] Comment on above: Performed By: #### L IPID, TSH, BMP, LIVER #### [facility] [address] [place] [address] Dr. Abby Kumar VLDL CALC 11.0 mg/dL Normal [facility] Comment on above: Performed By: #### L IPID, TSH, BMP, LIVER #### [facility] [address] [place] [address] Dr. Abby Kumar LIVER PROFILEon 12-04-2021 Albumin [Mass/Vol] 3.7 g/dL Normal 3.4-5.0 [facility] Comment on above: Performed By: #### L IPID, TSH, BMP, LIVER #### [facility] [address] [place] [address] Dr. Abby Kumar Albumin/Globulin [Mass ratio] 1.1 {ratio} Normal [facility] Comment on above: Performed By: #### L IPID, TSH, BMP, LIVER #### [facility] [address] [place] [address] Dr. Abby Kumar ALP [Catalytic activity/Vol] 58 U/L Normal 46-116 [facility] Comment on above: Performed By: #### L IPID, TSH, BMP, LIVER #### [facility] [address] [place] [address] Dr. Abby Kumar ALT [Catalytic activity/Vol] 12 U/L Critically low 14-59 [facility] Comment on above: Performed By: #### L IPID, TSH, BMP, LIVER #### [facility] [address] [place] [address] Dr. Abby Kumar AST [Catalytic activity/Vol] 10 U/L Critically low 15-37 [facility] Comment on above: Performed By: #### L IPID, TSH, BMP, LIVER #### [facility] [address] [place] [address] Dr. Abby Kumar BILI, CONJUGATED 0.1 mg/dL Normal 0.0-0.2 [facility] Comment on above: Performed By: #### L IPID, TSH, BMP, LIVER #### [facility] [address] [address] [address] Abby Kumar Bilirubin [Mass/Vol] 0.4 mg/dL Normal 0.2-1.0 [facility] Comment on above: Performed By: #### L IPID, TSH, BMP, LIVER #### [facility] [address] [place] [place] [address] Dr. Abby Kumar Globulin (S) [Mass/Vol] 3.5 g/dL Normal [facility] Comment on above: Performed By: #### L IPID, TSH, BMP, LIVER #### [facility] [address] [place] [address] Dr. Abby Kumar Protein [Mass/Vol] 7.2 g/dL Normal 6.4-8.2 [facility] Comment on above: Performed By: #### L IPID, TSH, BMP, LIVER #### [facility] [address] [place] [address] Dr. Abby Kumar PROF CHEM 8 (BAS METB)on Anion gap [Moles/Vol] 11.7 mmol/L Normal [facility] Comment on above: Performed By: #### L IPID, TSH, BMP, LIVER #### [facility] [address] [place] [address] Dr. Abby Kumar Calcium [Mass/Vol] 8.6 mg/dL Normal 8.5-10.1 [facility] Comment on above: Performed By: #### L IPID, TSH, BMP, LIVER #### [facility] [address] [place] [address] Dr. Abby Kumar Chloride [Moles/Vol] 105 mmol/L Normal 98-107 [facility] Comment on above: Performed By: #### L IPID, TSH, BMP, LIVER #### [facility] [address] [place] [address] Dr. Abby Kumar CO2 [Moles/Vol] 27.4 mmol/L Normal 21.0-32.0 [facility] Comment on above: Performed By: #### L IPID, TSH, BMP, LIVER #### [facility] [address] [place] [address] Dr. Abby Kumar Creatinine [Mass/Vol] 0.80 mg/dL Normal 0.55-1.02 [facility] Comment on above: Performed By: #### L IPID, TSH, BMP, LIVER #### [facility] [address] [place] [address] Dr. Abby Kumar EGFR-AF BENINESE >60 Normal >=60 [facility] Comment on above: Performed By: #### L IPID, TSH, BMP, LIVER #### [facility] [address] [place] [address] Dr. Abby Kumar EGFR-NON AF BENINESE >60 Normal >=60 [facility] Comment on above: Performed By: #### L IPID, TSH, BMP, LIVER #### [facility] [address] [place] [address] Dr. Abby Kumar Glucose [Mass/Vol] 74 mg/dL Normal 74-106 [facility] Comment on above: Performed By: #### L IPID, TSH, BMP, LIVER #### [facility] [address] [place] [address] Dr. Abby Kumar Potassium [Moles/Vol] 4.1 mmol/L Normal 3.5-5.1 [facility] Comment on above: Performed By: #### L IPID, TSH, BMP, LIVER #### [facility] [address] [place] [address] Dr. Abby Kumar Sodium [Moles/Vol] 140 mmol/L Normal 136-145 [facility] Comment on above: Performed By: #### L IPID, TSH, BMP, LIVER #### [facility] [address] [place] [address] Dr. Abby Kumar Urea nitrogen [Mass/Vol] 13.0 mg/dL Normal 7.0-18.0 [facility] Comment on above: Performed By: #### L IPID, TSH, BMP, LIVER #### [facility] [address] [address] [address] Abby Kumar Urea nitrogen/Creatinine [Mass ratio] 16.2 mg/mg Normal [facility] Comment on above: Performed By: #### L IPID, TSH, BMP, LIVER #### [facility] [address] [address] [address] Abby Kumar TSHon 12-04-2021 TSH 2.390 uIU/mL Normal 0.358-3.740 [facility] Comment on above: Performed By: #### L IPID, TSH, BMP, LIVER #### [facility] [address] [address] [address] Abby Kumar VITAMIN B12on 12-04-2021 Cobalamin (Vitamin B12) [Mass/Vol] 404.0 pg/mL Normal 193.0-986.0 [facility] Comment on above: Performed By: #### V ITB12, IRON, VITAD #### [facility] [address] [place] [address] Dr. Abby Kumar VITAMIN D 25 OHon 12-04-2021 VIT D 25-OH 36.0 ng/mL Normal [facility] Comment on above: Performed By: #### V ITB12, IRON, VITAD #### [facility] [address] [place] [address] Dr. Abby Kumar VIT D RANGES SEE BELOW Normal [facility] Comment on above: Result Comment: <20 ng/mL Vit D deficient 20 - <30 ng/mL Vit D insufficient 30 - 100 ng/mL Vit D sufficient >100 ng/mL Potential Toxicity Performed By: #### V ITB12, IRON, VITAD #### [facility] [address] [place] [address] Dr. Abby Kumar Vital Signs Date Time Vital Sign Value Performing Clinician Adriani lity 12-20-2023 13:15-0500 Body height 157.5 cm Edy Hardy MD Work Phone: [facility] 12-20-2023 13:15-0500 Body mass index (BMI) [Ratio] 37.13 kg/m2 Edy Hardy MD Work Phone: [facility] 12-20-2023 13:15-0500 Body temperature 97.3 [degF] Edy Hardy MD Work Phone: [facility] 12-20-2023 13:15-0500 Body weight 92.08 kg Edy Hardy MD Work Phone: [facility] 12-20-2023 13:15-0500 Diastolic blood pressure 80 mm[Hg] Edy Hardy MD Work Phone: [facility] 12-20-2023 13:15-0500 Heart rate 57 /min Edy Hardy MD Work Phone: [facility] 12-20-2023 13:15-0500 Respiratory rate 22 /min Edy Hardy MD Work Phone: [facility] 12-20-2023 13:15-0500 SaO2% (BldA) [Mass fraction] 99 % Edy Hardy MD Work Phone: [facility] 12-20-2023 13:15-0500 Systolic blood pressure 144 mm[Hg] Edy Hardy MD Work Phone: [facility] 11-02-2023 14:34-0400 Body height 157.5 cm Edy Hardy MD Work Phone: [facility] 11-02-2023 14:34-0400 Body mass index (BMI) [Ratio] 36.58 kg/m2 Edy Hardy MD Work Phone: [facility] 11-02-2023 14:34-0400 Body temperature 97.11 [degF] Edy Hardy MD Work Phone: [facility] 11-02-2023 14:34-0400 Body weight 90.72 kg Edy Hardy MD Work Phone: [facility] 11-02-2023 14:34-0400 Diastolic blood pressure 80 mm[Hg] Edy Hardy MD Work Phone: [facility] 11-02-2023 14:34-0400 Heart rate 92 /min Edy Hardy MD Work Phone: [facility] 11-02-2023 14:34-0400 Respiratory rate 18 /min Edy Hardy MD Work Phone: [facility] 11-02-2023 14:34-0400 SaO2% (BldA) [Mass fraction] 99 % Edy Hardy MD Work Phone: [facility] 11-02-2023 14:34-0400 Systolic blood pressure 130 mm[Hg] Edy Hardy MD Work Phone: [facility] 10-05-2023 14:48-0400 Body height 157.5 cm Edy Hardy MD Work Phone: [facility] 10-05-2023 14:48-0400 Body mass index (BMI) [Ratio] 35.85 kg/m2 Edy Hardy MD Work Phone: [facility] 10-05-2023 14:48-0400 Body temperature 97.11 [degF] Edy Hardy MD Work Phone: [facility] 10-05-2023 14:48-0400 Body weight 88.91 kg Edy Hardy MD Work Phone: [facility] 10-05-2023 14:48-0400 Diastolic blood pressure 100 mm[Hg] Edy Hardy MD Work Phone: [facility] 10-05-2023 14:48-0400 Heart rate 76 /min Edy Hardy MD Work Phone: [facility] 10-05-2023 14:48-0400 Respiratory rate 18 /min Edy Hardy MD Work Phone: [facility] 10-05-2023 14:48-0400 SaO2% (BldA) [Mass fraction] 97 % Edy Hardy MD Work Phone: [facility] 10-05-2023 14:48-0400 Systolic blood pressure 152 mm[Hg] Edy Hardy MD Work Phone: [facility] Healthcare Encounters Encounter Date Encounter Type Care Provider Facility Start: 12-20-2023 End: 12-20-2023 Office outpatient visit 25 minutes Edy Hardy MD Work Phone: [facility] Comment on above: Essential hypertensi on (CMS/HCC) (Primary Dx); MDD (major depressive disorder), recurrent episode, moderate (CMS/HCC); Degeneration of intervertebral disc of lumbar region with discogenic back pain and lower extremity pain; Primary osteoarthritis of right hip; Primary insomnia; PCOS (polycystic ovarian syndrome); Class 2 severe obesity due to excess calories with serious comorbidity and body mass index (BMI) of 37.0 to 37.9 in adult (CMS/HCC); Gastro-esophageal reflux disease without esophagitis Start: 12-20-2023 End: 12-20-2023 [email or web address] Bizee[employer]eeheet Edy Hardy MD Work Phone: [facility] Start: 12-20-2023 End: 12-20-2023 B[email or web address]ize[employer]ee[employer] Edy Hardy MD Work Phone: [facility] Start: 12-20-2023 End: 12-20-2023 ambulatory EDY HARDY Not Available Start: 12-10-2023 End: 12-13-2023 Refill Edy Hardy MD Work Phone: [facility] Comment on above: Primary insomnia Start: 11-02-2023 End: 11-02-2023 Office outpatient visit 25 minutes Edy Hardy MD Work Phone: [facility] Comment on above: Essential hypertensi on (CMS/HCC) (Primary Dx); Lumbar degenerative disc disease; Primary osteoarthritis of right hip; Primary insomnia; MDD (major depressive disorder), recurrent episode, moderate (HCC) (CMS/HCC); Acute angle-closure glaucoma, unspecified laterality Start: 11-02-2023 End: 11-02-2023 ambulatory EDY HARDY Not Available Start: 11-02-2023 End: 11-02-2023 Bamboo BizeeBeeheet Edy Hardy MD Work Phone: [facility] Start: 11-02-2023 End: 11-02-2023 Bamboo flowsheet Edy Hardy MD Work Phone: [facility] Start: 10-05-2023 End: 10-05-2023 Office outpatient visit 25 minutes Edy Hardy MD Work Phone: [facility] Comment on above: Essential hypertensi on (CMS/HCC) (Primary Dx); MDD (major depressive disorder), recurrent episode, moderate (HCC) (CMS/HCC); Obesity (BMI 30-39.9); Right hip pain; Chronic bilateral low back pain with right-sided sciatica; Right knee pain, unspecified chronicity; Gastro-esophageal reflux disease without esophagitis; Body mass index (BMI) 36.0-36.9, adult Start: 10-05-2023 End: 10-05-2023 ambulatory EDY HARDY Not Available Start: 10-05-2023 End: 10-05-2023 Bamboo flowsheet Edy Hardy MD Work Phone: [facility] Start: 10-05-2023 End: 10-05-2023 Bamboo flowsheet Edy Hardy MD Work Phone: [facility] Start: 07-27-2023 End: 07-27-2023 ambulatory EDY HARDY Not Available Start: 07-07-2023 End: 07-07-2023 ambulatory KEE MARIANO Not Available Start: 06-21-2023 End: 06-21-2023 ambulatory EDY HARDY Not Available Start: 05-07-2022 End: 05-08-[address] SIMONA DEJESUS . Facility:[facility] Start: 01-27-2022 End: 01-27-[address] EDY HARDY Facility:[facility] Start: 12-10-2021 Encounter for genera l adult medical examination without abnormal findings DR EDY HARDY [facility] Start: 12-04-2021 End: 12-05-[address] EDY HARDY Facility:[facility] Start: 12-04-2021 End: 12-05-2021 Encounter for general adult medical examination without abnormal findings DR EDY HARDY Facility:[facility] Procedures Date Procedure Procedure Detail Performing Clinician Start: 08-23-2023 Mammography Edy Hardy MD Work Phone: Start: 08-10-2023 Colonoscopy Edy Hardy MD Work Phone: Start: 07-14-2022 H/O: surgery H/O bilateral salpingectomy Edy Hardy MD Work Phone: Start: 05-07-2022 Microscopic observation [Identifier] in Cervix by Cyto stain Edy Hardy MD Work Phone: Plan of Treatment Date Care Activity Detail Author Start: 08-09-2033 Screening for malign ant neoplasm of colon [facility] Start: 10-02-2027 Screening for malign ant neoplasm of cervix [facility] Start: 05-08-2027 Screening for malign ant neoplasm of cervix Pap Smear [facility] Start: 08-22-2024 Screening for malign ant neoplasm of breast Mammogram [facility] Start: 02-21-2024 End: 02-21-2024 Patient encounter procedure 02/21/2024 2:30 PM EST Office Visit [facility] [address] [place] [phone] Edy Hardy MD [address] [place] [phone] [facility] Start: 02-01-2024 End: 02-01-2024 Patient encounter procedure 02/01/2024 3:30 PM EST Office Visit [facility] [address] [place] [address] Edy Hardy MD [address] [place] [phone] [facility] Start: 12-20-2023 End: 12-20-2023 Patient encounter procedure [facility] Comment on above: Arrived Start: 11-02-2023 End: 11-02-2023 Patient encounter procedure [facility] Comment on above: Arrived Start: 10-17-2023 Influenza vaccination Influenza Vacc ine (#1) [facility] Start: 10-05-2023 End: 10-05-2023 Patient encounter procedure 10/05/2023 2:45 PM EDT Office Visit [facility] [address] [place] [address] Edy Hardy MD [address] [place] [phone] Arrived [facility] Comment on above: Arrived Start: 10-05-2023 End: 10-04-2024 XR Hip - right 3 Views XR hip right 2 or 3 views Imaging Routine Right hip pain Expected: 10/05/2023, Expires: 10/04/2024 [facility] Comment on above: Expected: 10/05/2023 , Expires: 10/04/2024 Start: 10-05-2023 End: 10-04-2024 XR Knee - right 3 Views XR knee 3 views right Imaging Routine Right knee pain, unspecified chronicity Expected: 10/05/2023, Expires: 10/04/2024 [facility] Comment on above: Expected: 10/05/2023 , Expires: 10/04/2024 Start: 10-05-2023 End: 10-04-2024 XR Lumbar spine 2 or 3 Views XR lumbar spine 2 or 3 views Imaging Routine Chronic bilateral low back pain with right-sided sciatica Expected: 10/05/2023, Expires: 10/04/2024 [facility] Work Phone: Comment on above: Expected: 10/05/2023 , Expires: 10/04/2024 Start: 1975 Screening for malign ant neoplasm of colon [facility] Healthcare Payers Date Payer Category [facility] [id number] 1.315 2021 Unknown BCBS BCBS xxxxxx [id number] 2021-Present [phone] [address] [place] [address] [id number] 1976 Unknown [id number] 1976 Unknown [id number] 1976 Unknown [id number] 1976 Unknown [id number] 1976 Unknown [id number] 1976 Unknown [id number] 1976 Unknown [id number] 1976 Unknown [id number] 1976 Unknown [id number] 1959 Unknown [id number] Social History Date Type Detail Facility Start: 07-13-2022 Tobacco smoking stat [facility] Never smoked tobacco [facility] Start: 07-13-2022 Tobacco use and exposure Smoke less tobacco non-user [facility] Start: 10-05-2023 End: 11-02-2023 Alcoholic beverage intake Ex-drinker (finding) [facility] Start: 06-14-2023 End: 10-05-2023 History of Social function [facility] Start: 06-14-2023 End: 10-05-2023 Social connection and isolation panel [facility] How often do you att end alevism or voodoo services? Patient declined [facility] Are you now , , , , never or living with a partner? [facility] How often to you hav e a drink containing alcohol? Monthly or less [facility] How many standard dr inks containing alcohol do you have on a typical day? 1 or 2 [facility] How often do you hav e 6 or more drinks on 1 occasion? Never [facility] Do you feel stress - tense, restless, nervous, or anxious, or unable to sleep at night because your mind is troubled all the time - these days [OSQ] Very much [facility] (I/We) worried wheth er (my/our) food would run out before (I/we) got money to buy more. Never true [facility] In the past 12 month s, was there a time when you were not able to pay the mortgage or rent on time? No [facility] Start: 07-07-2023 Alcohol Comment Had a couple s hots liquor over 6 months ago [facility] Start: 1975 Sex assigned at Female [facility] Start: 07-08-2022 Gender identity Identifies as female gender (finding) [facility] Start: 07-08-2022 Sexual orientation Choose not to dis close [facility] History of Present illness Narrative 11-02-2023 Edy Hardy MD - 11/02/2023 2:56 PM Teresa Hardy MD - 11/02/2023 2:56 PM Teresa Hardy MD - 11/02/2023 2:56 PM Teresa Hardy MD - 11/02/2023 2:56 PM EDT Note Date & Type Note Facility 11-02-2023 History of Presen t illness Narrative Associated Problem(s): MDD (major depressive disorder), recurrent episode, moderate (HCC) (CMS/HCC) Stopped wellbutrin and doing well. Monitor and if symptoms worsen can try lamictal. Associated Problem(s): Primary insomnia Sleeping well with restoril and continue. Associated Problem(s): Primary osteoarthritis of right hip Pain unchanged and x-ray with arthritis changes. Discussed PT and possible injections but declined. Use zanaflex and tylenol for pain. Use ultram for severe pain. Associated Problem(s): Lumbar degenerative disc disease Pain unchanged and x-ray with arthritis changes. Discussed PT and possible injections but declined. Use zanaflex and tylenol for pain. Use ultram for severe pain. Associated Problem(s): Essential hypertension (CMS/HCC) BP normal and monitor PRN. Associated Problem(s): Acute angle-closure glaucoma Recently diagnosed and off wellbutrin. Need to avoid SSRIs. Images from the original note were not included. Subjective Patient ID: Ayla Barber is a 48 y.o. female who presents for Follow-up (1m /) and Back Pain (Lower back hip and knee pain). Follow up HTN, depression, back and hip pain, insomnia, and weight. Checking BP PRN and typically controlled. BP normal today. Seen by eye doctor and diagnosed with acute angle glaucoma. Stopped wellbutrin due to interaction. Off medication about 1 week and so far doing okay. Denies feeling down or sad. Stopped adipex due to interaction and weight up 4 pounds. Tries to walk and stay active. Tries to watch diet and eat healthy. Increased fruits and vegetables. Smaller portions and limits snacking. Tries to limit total daily calories. Pain unchanged. X-ray showed lumbar DDD and OA right hip. Pain to walk and stand. Using flexeril but no change. Not able to take NSAIDs due to prior gastric bypass. Sleeping well with restoril. Able to fall asleep and stay asleep. Wakes up rested in am. Review of Systems Respiratory: Negative for cough, shortness of breath and wheezing. Cardiovascular: Negative for chest pain and palpitations. Gastrointestinal: Negative for abdominal pain, diarrhea, nausea and vomiting. Genitourinary: Negative for dysuria. Objective Physical Exam Constitutional: General: She is not in acute distress. Appearance: Normal appearance. HENT: Head: Normocephalic. Right Ear: Tympanic membrane normal. Left Ear: Tympanic membrane normal. Eyes: Extraocular Movements: Extraocular movements intact. Pupils: Pupils are equal, round, and reactive to light. Cardiovascular: Rate and Rhythm: Normal rate and regular rhythm. Heart sounds: No murmur heard. No friction rub. No gallop. Pulmonary: Effort: Pulmonary effort is normal. Breath sounds: Normal breath sounds. No wheezing, rhonchi or rales. Abdominal: General: Bowel sounds are normal. There is no distension. Palpations: Abdomen is soft. Tenderness: There is no abdominal tenderness. There is no guarding or rebound. Musculoskeletal: Cervical back: Neck supple. Right lower leg: No edema. Left lower leg: No edema. Neurological: Mental Status: She is alert. Assessment/Plan Problem List Items Addressed This Visit Essential hypertension (CMS/HCC) - Primary BP normal and monitor PRN. Primary insomnia Sleeping well with restoril and continue. MDD (major depressive disorder), recurrent episode, moderate (HCC) (CMS/HCC) Stopped wellbutrin and doing well. Monitor and if symptoms worsen can try lamictal. Primary osteoarthritis of right hip Pain unchanged and x-ray with arthritis changes. Discussed PT and possible injections but declined. Use zanaflex and tylenol for pain. Use ultram for severe pain. Lumbar degenerative disc disease Pain unchanged and x-ray with arthritis changes. Discussed PT and possible injections but declined. Use zanaflex and tylenol for pain. Use ultram for severe pain. Relevant Medications tiZANidine (Zanaflex) 4 MG tablet traMADol (Ultram) 50 MG tablet Acute angle-closure glaucoma Recently diagnosed and off wellbutrin. Need to avoid SSRIs. documented in this encounter [facility] History of Present illness Narrative 10-05-2023 Edy Hardy MD - 10/05/2023 3:16 PM EDMateo Hardy MD - 10/05/2023 3:16 PM EDMateo Hardy MD - 10/05/2023 3:16 PM EDMateo Hardy MD - 10/05/2023 3:16 PM EDT Note Date & Type Note Facility 10-05-2023 History of Presen t illness Narrative Associated Problem(s): Right knee pain Pain for weeks and possible arthritis changes. Check x-ray. Discussed PT but declined. Use flexeril and tylenol for pain. Associated Problem(s): Right hip pain Pain for weeks and possible arthritis changes. Check x-ray. Discussed PT but declined. Use flexeril and tylenol for pain. Associated Problem(s): Obesity (BMI 30-39.9) Patient overweight and difficult time losing weight. Discussed proper diet and regular aerobic exercise. Recommend Weight Watchers and need to limit calories and smaller portions. Need to increase activity and regular aerobic exercise several days a week for 30 minutes at a time. Interested in adipex and warned of potential cardiac side effects. Script written for first month and will need to recheck weight in 1 month. OARRS reviewed. Continue medications as prescribed. Associated Problem(s): MDD (major depressive disorder), recurrent episode, moderate (HCC) (CMS/HCC) Symptoms controlled with wellbutrin and continue. Associated Problem(s): Essential hypertension (CMS/HCC) BP elevated and monitor PRN. If remains elevated will need to treat. Associated Problem(s): Chronic bilateral low back pain with right-sided sciatica Pain for weeks and possible arthritis changes. Check x-ray. Discussed PT but declined. Use flexeril and tylenol for pain. Images from the original note were not included. Subjective Patient ID: Ayla Barber is a 48 y.o. female who presents for Follow-up (2m f/u) and Hip Pain (Starts at hip runs down to foot). Follow up HTN, depression, and weight. Not checking BP away from office and elevated today. Not on medication since weight loss surgery. Mood controlled with wellbutrin. Occasional symptoms and at times down and sad but mild and tolerable. Weight down 4 pounds but trying to lose more. Tries to watch diet and eat healthy. Increased fruits and vegetables. Smaller portions and limits snacking. Tries to limit total daily calories. Requests medication for weight loss. C/o pain in right knee, hip, and low back for over a month. No fall, injury, or trauma. Pain in knee and at times unsteady. Pain in right hip and groin. Pain in low back and across top hips. Pain radiates into right gluteal region and down legs. Pain worse with walking and standing. Worse after work. Using motrin and mild relief. Review of Systems Respiratory: Negative for cough, shortness of breath and wheezing. Cardiovascular: Negative for chest pain and palpitations. Gastrointestinal: Negative for abdominal pain, diarrhea, nausea and vomiting. Genitourinary: Negative for dysuria. Objective Physical Exam Constitutional: General: She is not in acute distress. Appearance: Normal appearance. HENT: Head: Normocephalic. Right Ear: Tympanic membrane normal. Left Ear: Tympanic membrane normal. Eyes: Extraocular Movements: Extraocular movements intact. Pupils: Pupils are equal, round, and reactive to light. Cardiovascular: Rate and Rhythm: Normal rate and regular rhythm. Heart sounds: No murmur heard. No friction rub. No gallop. Pulmonary: Effort: Pulmonary effort is normal. Breath sounds: Normal breath sounds. No wheezing, rhonchi or rales. Abdominal: General: Bowel sounds are normal. There is no distension. Palpations: Abdomen is soft. Tenderness: There is no abdominal tenderness. There is no guarding or rebound. Musculoskeletal: Cervical back: Neck supple. Right lower leg: No edema. Left lower leg: No edema. Neurological: Mental Status: She is alert. Assessment/Plan Problem List Items Addressed This Visit Essential hypertension (CMS/HCC) - Primary BP elevated and monitor PRN. If remains elevated will need to treat. Obesity (BMI 30-39.9) Patient overweight and difficult time losing weight. Discussed proper diet and regular aerobic exercise. Recommend Weight Watchers and need to limit calories and smaller portions. Need to increase activity and regular aerobic exercise several days a week for 30 minutes at a time. Interested in adipex and warned of potential cardiac side effects. Script written for first month and will need to recheck weight in 1 month. OARRS reviewed. Continue medications as prescribed. Relevant Medications phentermine (Adipex-P) 37.5 MG tablet MDD (major depressive disorder), recurrent episode, moderate (HCC) (CMS/HCC) Symptoms controlled with wellbutrin and continue. Right hip pain Pain for weeks and possible arthritis changes. Check x-ray. Discussed PT but declined. Use flexeril and tylenol for pain. Relevant Orders XR hip right 2 or 3 views Chronic bilateral low back pain with right-sided sciatica Pain for weeks and possible arthritis changes. Check x-ray. Discussed PT but declined. Use flexeril and tylenol for pain. Relevant Medications cyclobenzaprine (Flexeril) 10 MG tablet Other Relevant Orders XR lumbar spine 2 or 3 views Right knee pain Pain for weeks and possible arthritis changes. Check x-ray. Discussed PT but declined. Use flexeril and tylenol for pain. Relevant Orders XR knee 3 views right documented in this encounter [facility] Evaluation note Note Date & Type Note Facility Evaluation note Diagnosis Breast cancer screening by mammogram- Primary Colon cancer screening Special screening for malignant neoplasms, colon Essential hypertension (CMS/HCC) Unspecified essential hypertension MDD (major depressive disorder), recurrent episode, moderate (CMS/HCC) Primary insomnia Persistent disorder of initiating or maintaining sleep Gastroesophageal reflux disease without esophagitis Esophageal reflux Obesity (BMI 30-39.9) Essential hypertension (CMS/HCC)- Primary Unspecified essential hypertension MDD (major depressive disorder), recurrent episode, moderate (CMS/HCC) Primary insomnia Persistent disorder of initiating or maintaining sleep Gastroesophageal reflux disease without esophagitis Esophageal reflux Migraine without aura and with status migrainosus, not intractable (CMS/HCC) Body mass index [BMI] 36.0-36.9, adult (Z68.36) Essential hypertension (CMS/HCC)- Primary Unspecified essential hypertension MDD (major depressive disorder), recurrent episode, moderate (CMS/HCC) Obesity (BMI 30-39.9) Right hip pain Pain in joint, pelvic region and thigh Chronic bilateral low back pain with right-sided sciatica Right knee pain, unspecified chronicity Gastro-esophageal reflux disease without esophagitis Body mass index (BMI) 36.0-36.9, adult Essential hypertension (CMS/HCC)- Primary Unspecified essential hypertension Lumbar degenerative disc disease Primary osteoarthritis of right hip Primary insomnia Persistent disorder of initiating or maintaining sleep MDD (major depressive disorder), recurrent episode, moderate (CMS/HCC) Acute angle-closure glaucoma, unspecified laterality Primary insomnia Persistent disorder of initiating or maintaining sleep documented in this encounter [facility] Evaluation note Note Date & Type Note Facility Evaluation note Diagnosis Breast cancer screening by mammogram- Primary Colon cancer screening Special screening for malignant neoplasms, colon Essential hypertension (CMS/HCC) Unspecified essential hypertension MDD (major depressive disorder), recurrent episode, moderate (CMS/HCC) Primary insomnia Persistent disorder of initiating or maintaining sleep Gastroesophageal reflux disease without esophagitis Esophageal reflux Obesity (BMI 30-39.9) Essential hypertension (CMS/HCC)- Primary Unspecified essential hypertension MDD (major depressive disorder), recurrent episode, moderate (CMS/HCC) Primary insomnia Persistent disorder of initiating or maintaining sleep Gastroesophageal reflux disease without esophagitis Esophageal reflux Migraine without aura and with status migrainosus, not intractable (CMS/HCC) Body mass index [BMI] 36.0-36.9, adult (Z68.36) Essential hypertension (CMS/HCC)- Primary Unspecified essential hypertension MDD (major depressive disorder), recurrent episode, moderate (CMS/HCC) Obesity (BMI 30-39.9) Right hip pain Pain in joint, pelvic region and thigh Chronic bilateral low back pain with right-sided sciatica Right knee pain, unspecified chronicity Gastro-esophageal reflux disease without esophagitis Body mass index (BMI) 36.0-36.9, adult Essential hypertension (CMS/HCC)- Primary Unspecified essential hypertension Lumbar degenerative disc disease Primary osteoarthritis of right hip Primary insomnia Persistent disorder of initiating or maintaining sleep MDD (major depressive disorder), recurrent episode, moderate (CMS/HCC) Acute angle-closure glaucoma, unspecified laterality Essential hypertension (CMS/HCC)- Primary Unspecified essential hypertension MDD (major depressive disorder), recurrent episode, moderate (CMS/HCC) Degeneration of intervertebral disc of lumbar region with discogenic back pain and lower extremity pain Primary osteoarthritis of right hip Primary insomnia Persistent disorder of initiating or maintaining sleep PCOS (polycystic ovarian syndrome) Polycystic ovaries Class 2 severe obesity due to excess calories with serious comorbidity and body mass index (BMI) of 37.0 to 37.9 in adult (CMS/HCC) Gastro-esophageal reflux disease without esophagitis documented in this encounter [facility] Evaluation note Note Date & Type Note Facility Evaluation note Diagnosis Essential hypertension (CMS/HCC)- Primary Unspecified essential hypertension Lumbar degenerative disc disease Primary osteoarthritis of right hip Primary insomnia Persistent disorder of initiating or maintaining sleep MDD (major depressive disorder), recurrent episode, moderate (CMS/HCC) Acute angle-closure glaucoma, unspecified laterality documented in this encounter [facility] Evaluation note Note Date & Type Note Facility Evaluation note Diagnosis Essential hypertension (CMS/HCC)- Primary Unspecified essential hypertension MDD (major depressive disorder), recurrent episode, moderate (HCC) (CMS/HCC) Obesity (BMI 30-39.9) Right hip pain Pain in joint, pelvic region and thigh Chronic bilateral low back pain with right-sided sciatica Right knee pain, unspecified chronicity Gastro-esophageal reflux disease without esophagitis Body mass index (BMI) 36.0-36.9, adult documented in this encounter [facility] History of Present illness Narrative Edy Hardy MD - 12/20/2023 2:30 PM Young Hardy MD - 12/20/2023 1:41 PM Young Hardy MD - 12/20/2023 1:40 PM Young Hardy MD - 12/20/2023 1:40 PM EST Note Date & Type Note Facility History of Present illness Narrative Images from the original note were not included. Subjective Patient ID: Ayla Barber is a 48 y.o. female who presents for Follow-up (1 m/Weight/pcos). Follow up HTN, depression, insomnia, and pain. Checking BP PRN and typically controlled. BP okay today. Taking medication daily and tolerating without side effects. Depression stable. Still symptoms and at times down, sad, and no motivation. Still not want to do things or be around others. On lamictal. Sleeping okay with restoril. Typically able to fall asleep and stay asleep. Pain stable. Pain in low back and across top hips. Pain in right hip. Pain worse with walking and standing. Medication helps keep pain tolerable. Concerned of weight. Gained weight and not able to lose. History of PCOS and concerned affecting weight. Review of Systems Respiratory: Negative for cough, shortness of breath and wheezing. Cardiovascular: Negative for chest pain and palpitations. Gastrointestinal: Negative for abdominal pain, diarrhea, nausea and vomiting. Genitourinary: Negative for dysuria. Objective Physical Exam Constitutional: General: She is not in acute distress. Appearance: Normal appearance. HENT: Head: Normocephalic. Right Ear: Tympanic membrane normal. Left Ear: Tympanic membrane normal. Eyes: Extraocular Movements: Extraocular movements intact. Pupils: Pupils are equal, round, and reactive to light. Cardiovascular: Rate and Rhythm: Normal rate and regular rhythm. Heart sounds: No murmur heard. No friction rub. No gallop. Pulmonary: Effort: Pulmonary effort is normal. Breath sounds: Normal breath sounds. No wheezing, rhonchi or rales. Abdominal: General: Bowel sounds are normal. There is no distension. Palpations: Abdomen is soft. Tenderness: There is no abdominal tenderness. There is no guarding or rebound. Musculoskeletal: Cervical back: Neck supple. Right lower leg: No edema. Left lower leg: No edema. Neurological: Mental Status: She is alert. Assessment/Plan Problem List Items Addressed This Visit Essential hypertension (CMS/HCC) - Primary BP normal and monitor PRN. Primary insomnia Sleeping well with restoril and continue. PCOS (polycystic ovarian syndrome) Problems with weight and start metformin. Relevant Medications metFORMIN XR (Glucophage-XR) 500 MG 24 hr tablet Class 2 severe obesity due to excess calories with serious comorbidity and body mass index (BMI) of 37.0 to 37.9 in adult (CMS/HCC) Discussed proper diet and regular aerobic exercise. Recommend Weight Watchers and need to limit calories and smaller portions. Need to increase activity and regular aerobic exercise several days a week for 30 minutes at a time. MDD (major depressive disorder), recurrent episode, moderate (CMS/HCC) Occasional symptoms and increase lamictal. Relevant Medications lamoTRIgine (LaMICtal) 100 MG tablet Primary osteoarthritis of right hip Pain stable and use zanaflex and tylenol for pain. Use ultram for severe pain. Lumbar degenerative disc disease Pain stable and use zanaflex and tylenol for pain. Use ultram for severe pain. Associated Problem(s): Class 2 severe obesity due to excess calories with serious comorbidity and body mass index (BMI) of 37.0 to 37.9 in adult (CMS/HCC) Discussed proper diet and regular aerobic exercise. Recommend Weight Watchers and need to limit calories and smaller portions. Need to increase activity and regular aerobic exercise several days a week for 30 minutes at a time. Associated Problem(s): MDD (major depressive disorder), recurrent episode, moderate (CMS/HCC) Occasional symptoms and increase lamictal. Associated Problem(s): PCOS (polycystic ovarian syndrome) Problems with weight and start metformin. Associated Problem(s): Primary insomnia Sleeping well with restoril and continue. Associated Problem(s): Primary osteoarthritis of right hip Pain stable and use zanaflex and tylenol for pain. Use ultram for severe pain. Associated Problem(s): Lumbar degenerative disc disease Pain stable and use zanaflex and tylenol for pain. Use ultram for severe pain. Associated Problem(s): Essential hypertension (CMS/HCC) BP normal and monitor PRN. documented in this encounter [facility] Summary Purpose Family History No Family History Records FoundNo Family History Records Found Advance Directives No Advanced Directives Records FoundNo Advanced Directives Records Found Reason for Referral Specialty Diagnoses / Procedures Referred By Contac t Referred To Contact Diagnoses Obesity (BMI 30-39.9) Edy Hardy MD [address] [place] [address] Referral ID Status Reason Start Date Expiration Date V isits Requested Visits Authorized [id number] Pending Review 1 1 Additional Source Comments INFORMATION SOURCE (unrecogn ized section and content) DATE CREATED AUTHOR 05/10/2022 [facility] DATE CREATED AUTHOR AUTHOR'S ORGANIZ ATION 12/21/2023 [facility] EPIC Reason for Visit (unrecogniz ed section and content) Reason Comments Med Refill Reason Comments Follow-up 1 mWeight/pcos Reason Comments Follow-up 1m Back Pain Lower back hip and k nee pain Reason Comments Follow-up 2m f/u Hip Pain Starts at hip runs d own to foot Care Teams (unrecognized sec tion and content) Foreign Exchange Dealer Relationship Specialty Start Date End Date Edy Hardy MD [address] [place] [address] PCP - [employer] 02/15/23 Edy Hardy MD [address] [place] [phone] PCP - General Family Medicine 06/21/23 Foreign Exchange Dealer Relationship Specialty Start Date End Date Edy Hardy MD [address] [place] [phone] PCP - [employer] 02/15/23 Edy Hardy MD [address] [place] [phone] PCP - General Family Medicine 06/21/23 Foreign Exchange Dealer Relationship Specialty Start Date End Date Edy Hardy MD [address] [place] [phone] PCP - [employer] 02/15/23 Edy Hardy MD [address] [place] [address] PCP - General Family Medicine 06/21/23 Foreign Exchange Dealer Relationship Specialty Start Date End Date Edy Hardy MD [address] [place] [phone] PCP - [employer] 02/15/23 Edy Hardy MD [address] [place] [address] PCP - General Family Medicine 06/21/23 Foreign Exchange Dealer Relationship Specialty Start Date End Date Edy Hardy MD [address] [place] [phone] PCP - [employer] 02/15/23 Edy Hardy MD [address] [place] [phone] [facility] 06/21/23 Foreign Exchange Dealer Relationship Specialty Start Date End Date Edy Hardy MD [address] [place] [address] [facility] 02/15/23 Edy Hardy MD [address] [place] [address] [facility] 06/21/23 Foreign Exchange Dealer Relationship Specialty Start Date End Date Edy Hardy MD [address] [place] [address] [facility] 02/15/23 Edy Hardy MD [address] [place] [address] [facility] 06/21/23 FOR RECORDS PERTAINING TO PATIENTS WHO ARE [...] BE BASED ON THE PRIMARY CLINICAL RECORDS. [employer] [facility]. provides no warranty or guarantee of the accuracy or completeness of information in this document.
--- NOTE | 2024-02-06 21:29 | CT_ITS ---
The [address] [address] Patient Name: SEBAS BARBER MRN: [id number] date: 1975 Sex: F Assigned Patient Location: ER Current Patient Location: [facility] Accession/Order Number: [id number] Exam Date: 02/06/2024 21:40 Report Date: 02/06/2024 22:51 At the request of: FATMATA SCALES Procedure: CT head/brain wo con EXAM: CT head/brain wo con HISTORY: Left-sided headache for 9 days . History of chronic migraine INDICATION: 48 years old; Female. TECHNIQUE: CT Head (ax/cor/sag reformats). Ionizing radiation dose reduced via iterative reconstruction/FBP blend and body size kV/mA adjustment. Comparison: None FINDINGS: POSTOPERATIVE CHANGES: None. BRAIN PARENCHYMA: No intraparenchymal or extra-axial hemorrhage. No mass effect. No midline shift or herniation. Normal woody/white differentiation. VENTRICLES/EXTRA-AXIAL SPACES: Normal for patient's age. SINUSES/MASTOIDS: The visualized sinuses are clear although the paranasal sinuses are not completely included. Mastoids and middle ears are clear. MSK: No displaced or depressed calvarial fracture. OTHER: No hyperdense intraluminal thrombus. CT/CT head/brain wo con IMPRESSION: 1. No acute intracranial abnormality. No hemorrhage or mass effect. If there is continued suspicion for intracranial pathology, recommend follow-up with MRI. Electronically authenticated by: NEGRO ONEILL Date: 02/06/2024 22:51
--- NOTE | 2024-02-06 21:29 | ED.GENADUL1 ---
HPI HPI - General Adult General Chief complaint: Headache Stated complaint: HEADACHE Time Seen by Provider: 02/06/24 21:25 Source: patient Mode of arrival: walk-in Limitations: no limitations History of Present Illness HPI narrative: 48-year-old female presents for 9-day history of left-sided headache. No trauma fever or stiff neck. She states she has a history of headaches like this but they usually do not last this long. She is never had a CAT scan of her head. No localized weakness or numbness. No fever or vomiting. The pain has been continuous. Related Data Home Medications ?Medication ?Instructions ?Recorded ?Confirmed bupropion HCl 75 mg tablet 75 mg PO BID 07/08/23 08/10/23 eletriptan 40 mg tablet (Relpax) See Rx Instructions PO .COMPLEX 07/08/23 08/10/23 multivitamin (Daily Multi-Vitamin 1 tab PO DAILY 07/08/23 08/10/23 tablet) pantoprazole 40 mg tablet,delayed 40 mg PO DAILY 07/08/23 08/10/23 release temazepam 30 mg capsule (Restoril) 30 mg PO DAILY 07/08/23 08/10/23 Previous Rx's ?Medication ?Instructions ?Recorded wbpzbjvjrm-lapfrqdgkkbgh-vpqrglju 1 cap PO Q6H PRN pain 5 days #20 02/06/24 50 mg-300 mg-40 mg capsule caps (Fioricet) Allergies Allergy/AdvReac Type Severity Reaction Status Date / Time omeprazole Allergy Hives Verified 07/08/23 13:39 Opioid HPI Opioid Management Most Recent Opioid Data: Last Pain Scale 10 02/06/24 21:55 02/06/24 Last ED Pain Assessment 02/06/24 21:27 Review of Systems ROS Narrative A ten point review of systems is negative except as noted above. [facility] Medical History (Updated 02/06/24 @ 22:59 by Christiano Quezada MD) Anemia ?D64.9 - Anemia, unspecified (ICD-10) Depression ?F32.A - Depression, unspecified (ICD-10) Migraine ?G43.909 - Migraine, unspecified, not intractable, without status migrainosus (ICD-10) GERD (gastroesophageal reflux disease) ?K21.9 - Gastro-esophageal reflux disease without esophagitis (ICD-10) PCOS (polycystic ovarian syndrome) ?E28.2 - Polycystic ovarian syndrome (ICD-10) Hypoglycemia ?E16.2 - Hypoglycemia, unspecified (ICD-10) Surgical History (Updated 07/08/23 @ 13:47 by Yanet Dexter NP) H/O gastric sleeve ?Z90.3 - Acquired absence of stomach [part of] (ICD-10) History of wisdom tooth extraction ?K08.409 - Partial loss of teeth, unspecified cause, unspecified class (ICD-10) History of endometrial ablation ?Z98.890 - Other specified postprocedural states (ICD-10) History of bilateral salpingectomy ?Z90.79 - Acquired absence of other genital organ(s) (ICD-10) History of cholecystectomy ?Z90.49 - Acquired absence of other specified parts of digestive tract (ICD-10) History of carpal tunnel release ?Z98.890 - Other specified postprocedural states (ICD-10) Family History (Updated 07/08/23 @ 13:42 by Yanet Dexter NP) Other Cardiac tumor Family history of cancer Family history of diabetes mellitus Family history of hypertension Family history of myocardial infarction Heart disease Social History (Updated 07/08/23 @ 13:43 by Yanet Dexter NP) Within the past year, how often did you have a drink containing alcohol: monthly or less Smoking status: Never smoker Non-prescribed substance use: denies use 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 General: The patient appears well and in no apparent distress. Patient is resting comfortably on cart. Skin: Warm, dry, no pallor noted. There is no rash noted. Head: Normocephalic, atraumatic Eye: Normal conjunctiva, no drainage, EOMI. PERRL Ears, Nose, Mouth, and Throat: oral mucosa is moist. Nares patent. Cardiovascular: Regular Rate and Rhythm Respiratory: Patient is in no distress, no accessory muscle use, lungs are clear to auscultation, no wheezing, rales or rhonchi Back: non-tender GI: Soft and nontender Musculoskeletal: The patient has no evidence of calf tenderness, no pitting edema, symmetrical pulses noted bilaterally Neurological: A&O, normal speech; upper and lower extremity strength intact and symmetric Psychiatric: Cooperative Constitutional Vital Signs, click to edit/add: Last Vital Signs Pulse 67 02/06/24 20:21 Resp 18 02/06/24 20:21 BP 160/100 H 02/06/24 20:21 Pulse Ox 100 02/06/24 20:21 O2 Del Method Room Air 02/06/24 20:21 Course Vital Signs Vital signs: Vital Signs Pulse Rate 67 02/06/24 20:21 Respiratory Rate 18 02/06/24 20:21 Blood Pressure 160/100 H 02/06/24 20:21 Pulse Oximetry 100 02/06/24 20:21 Oxygen Delivery Method Room Air 02/06/24 20:21 Pulse Rate 67 02/06/24 20:21 Respiratory Rate 18 02/06/24 20:21 Blood Pressure 160/100 H 02/06/24 20:21 Pulse Oximetry 100 02/06/24 20:21 Oxygen Delivery Method Room Air 02/06/24 20:21 Medical Decision Making MDM Narrative Medical decision making narrative: CT is negative and she is feeling improved after being given IV Toradol, Solu-Medrol, and Benadryl. She is discharged home with a prescription for Fioricet. Treatment diagnosis and follow-up were discussed with the patient. I have no clinical suspicion of meningitis. Differential Diagnosis Differential Diagnosis: Nonspecific headache, migraine headache, subdural hematoma, subarachnoid he Imaging Data CT scan - head: Radiologist's impression: ITS Impressions Head CT 02/06/24 21:29 IMPRESSION: 1. No acute intracranial abnormality. No hemorrhage or mass effect. If there is continued suspicion for intracranial pathology, recommend follow-up with MRI. Electronically authenticated by: NEGRO ONEILL Date: 02/06/2024 22:51 Discharge Plan Discharge Chief Complaint: Headache Clinical Impression: Headache Patient Disposition: Home, Self-Care Time of Disposition Decision: 22:59 Condition: Good Mode of Transportation: Private Vehicle Prescriptions / Home Meds: New pytmsiyxog-ndxukqlnmsifd-rzvw [Fioricet] 50-300-40 mg capsule 1 cap PO Q6H PRN (Reason: pain) 5 Days Qty: 20 0RF No Action bupropion HCl 75 mg tablet 75 mg PO BID Rx Instructions: administer 6 hours apart eletriptan [Relpax] 40 mg tablet See Rx Instructions .ROUTE .COMPLEX Rx Instructions: take 1 tab at onset of headache; if no relief, may repeat 1 tab after at least 2 hrs; max = 2 tabs/24 hrs multivitamin [Daily Multi-Vitamin] Tablet 1 tab PO DAILY pantoprazole 40 mg tablet,delayed release (DR/EC) 40 mg PO DAILY temazepam [Restoril] 30 mg capsule 30 mg PO DAILY Print Language: Lithuanian Instructions: Acute Headache (ED) Referrals: Edy Bautista MD [Primary Care Provider] - 1 week
[2024-02-06] MEDS: DIPHENHYDRAMINE HCL 50 MG/ML VIAL 25 MG IV (21:54)
[2024-02-06] MEDS: KETOROLAC TROMETHAMINE 30 MG/ML VIAL IVP (21:55)
[2024-02-06] MEDS: METHYLPREDNISOLONE SOD SUCC PF 125 MG/2 ML VIAL IVP (21:55)
[2024-02-06 23:14] VITALS: BP 182/120; PULSE 56; O2SAT 99
== END 2024-02-06 23:15 | disposition home or self-care (01) ==
PROVIDERS: Emergency Provider Emergency Medicine; PCP Family Medicine
DX: R51.9 Headache, unspecified (principal); Z90.3 Acquired absence of stomach [part of]; Z90.79 Acquired absence of other genital organ(s); Z90.49 Acquired absence of other specified parts of digestive tract
CPT/HCPCS: 70450; 96374; 96375; 99285; J1200; J1885; J2919

== ENCOUNTER 2024-05-23 14:54 | Outpatient (REF) | payer BC, SELFPAY | END 2024-05-23 14:55 | disposition home or self-care (01) | LOC: LAB 14:54 | PROVIDERS: PCP Family Medicine; Visit Provider Nurse Practitioner Family | DX: Z01.419 Encounter for gynecological examination (general) (routine) without abnormal findings (principal) | CPT/HCPCS: 87624; 88175 ==

== ENCOUNTER 2024-05-26 16:17 | Outpatient (OUT) | payer BC, SELFPAY ==
--- OUTSIDE RECORDS SUMMARY | 2024-05-26 16:26 | XMS_ITS | CCD ---
Author Organization [facility] Care Team Providers Care Criminal Lawyer Name Role Phone ANJELICA ., DR JARVIS Admitting Unavailable ANJELICA ., DR JARVIS Attending Unavailable NADERER, DR EDY Chávez Primary Care Unavailable ANJELICA ., DR JARVIS Consulting Unavailable ZIEBER, DR ADARSH Diego Consulting Unavailable NADERER, DR EDY Chávez Admitting Unavailable NADERER, DR EDY Chávez Attending Unavailable NADERER, DR EDY Chávez Primary Care Unavailable NADERER, DR EDY Chávez Consulting Unavailable NADERER, DR EDY Chávez Admitting Unavailable NADERER, DR EDY Cáhvez Attending Unavailable NADERER, DR EDY Chávez Primary Care Unavailable NADERER, DR EDY Chávez Consulting Unavailable Edy Hardy MD Unavailable Edy Hardy MD Primary Care Provider HAYLEY, EDY Attending Unavailable KEE MARIANO Attending Unavailable NADERER, EDY Referring Unavailable NADERER, EDY Attending Unavailable NADERER, EDY Attending Unavailable NADERER, EDY Attending Unavailable NADERER, EDY Attending Unavailable NADERER, EDY Attending Unavailable NADERER, EDY Attending Unavailable WILLIAMDIPTI Attending Unavailable Allergies Allergy Classification Reported Allergen(s) Allergy Type Date of Onset Reaction(s) Facility (1 source) Omeprazole Drug Allergy [facility] (20 sources) Omeprazole Drug Allergy 07-14-2022 Unknown [facility] Medications Current Medications Medication Drug Class(es) Dates Sig (Normalized) Sig (Original) amitriptyline hydrochloride 25 mg oral tablet (10 sources) Tricyclic Antidepressant Start: 03-13-2024 End: 03-13-2025 take 1 tablet by mouth at bedtime amitriptyline (Elavil) 25 MG tablet Indications: Migraine without aura and with status migrainosus, not intractable (CMS/HCC) Take 1 tablet (25 mg) by mouth at bedtime 30 tablet 11 03/13/2024 03/13/2025 Active Start: 02-21-2024 take 1 tablet by yasmani th at bedtime amitriptyline (Elavil) 25 MG tablet Indications: Migraine without aura and with status migrainosus, not intractable (CMS/HCC) Take 1 tablet (25 mg) by mouth at bedtime 30 tablet 2 02/21/2024 Active eletriptan 40 mg oral tablet (20 sources) Serotonin-1b and Serotonin-1d Receptor Agonist Start: 03-03-2023 eletriptan (Relpax) 40 MG tablet Indications: Non-refractory chronic migraine without aura (CMS/HCC) TAKE 1 TABLET ONE TIME IF NEEDED FOR MIGRAINE. TAKE 1 TABLET AT ONSET OF HEADACHE, MAY REPEAT IN 2 HOURS ONE TIME 9 tablet 14 02/21/2024 Active lamoTRIgine 100 mg oral tablet (17 sources) Mood Stabilizer, Anti-epileptic Agent Start: 03-13-2024 End: 03-13-2025 take 1 tablet by mouth at bedtime lamoTRIgine (LaMICtal) 100 MG tablet Indications: MDD (major depressive disorder), recurrent episode, moderate (CMS/HCC) Take 1 tablet (100 mg) by mouth at bedtime 30 tablet 11 03/13/2024 03/13/2025 Active Start: 12-20-2023 take 1 tablet by [...] 180 tablet 1 12/09/2023 12/20/2023 Discontinued (Reorder) losartan potassium 25 mg oral tablet (11 sources) Angiotensin 2 Receptor Carley Start: 03-13-2024 End: 03-13-2025 take 1 tablet by mouth once daily losartan (Cozaar) 25 MG tablet Indications: Essential hypertension (CMS/HCC) Take 1 tablet (25 mg) by mouth Daily 30 tablet 11 03/13/2024 03/13/2025 Active Start: 02-07-2024 take 1 tablet by yasmani th once daily losartan (Cozaar) 25 MG tablet Indications: Essential hypertension (CMS/HCC) Take 1 tablet (25 mg) by mouth Daily 30 tablet 5 02/07/2024 Active 24 hr metFORMIN hydrochloride 500 mg extended release oral tablet (13 sources) Biguanide Start: 03-13-2024 End: 03-13-2025 take 1 tablet by mouth every twenty-four hours at mealtime metFORMIN XR (Glucophage-XR) 500 MG 24 hr tablet Indications: PCOS (polycystic ovarian syndrome) Take 1 tablet (500 mg) by mouth in the evening. Take with meals 30 tablet 11 03/13/2024 03/13/2025 Active Start: 12-20-2023 take 1 tablet by yasmani th every twenty-four hours at mealtime metFORMIN XR (Glucophage-XR) 500 MG 24 hr tablet Indications: PCOS (polycystic ovarian syndrome) Take 1 tablet (500 mg) by mouth in the evening. Take with meals Do not crush, chew, or split. 30 tablet 5 12/20/2023 Active Multiple Vitamin (Multi Vitamin) tablet (10 sources) End: 12-20-2023 Multiple Vitamin (Multi Hsaron min) tablet 1 (one) time each day at the same time. 12/20/2023 Discontinued Multiple Vitamin (Multi Vitamin) tablet 1 (one) time each day at the same time. Active pantoprazole 40 mg delayed release oral tablet (20 sources) Proton Pump Inhibitor Start: 03-13-2024 End: 03-13-2025 take 1 tablet by mouth before mealtime pantoprazole (ProtoNix) 40 MG EC tablet Indications: Gastroesophageal reflux disease without esophagitis Take 1 tablet (40 mg) by mouth in the morning. Take before meals. 30 tablet 11 03/13/2024 03/13/2025 Active Start: 01-17-2024 take 1 tablet by yasmani th before mealtime pantoprazole (ProtoNix) 40 MG EC tablet Indications: Gastroesophageal reflux disease without esophagitis TAKE 1 TABLET BY MOUTH IN THE MORNING BEFORE MEALS, DO NOT CRUSH, CHEW, OR SPLIT 30 tablet 3 01/17/2024 Active Start: 09-20-2023 take 1 tablet by yasmani th before mealtime pantoprazole (ProtoNix) 40 MG EC tablet Indications: Gastroesophageal reflux disease without esophagitis TAKE 1 TABLET BY MOUTH IN THE MORNING BEFORE MEALS, DO NOT CRUSH, CHEW, OR SPLIT 30 tablet 3 09/20/2023 Active temazepam 30 mg oral capsule (20 sources) Benzodiazepine Start: 08-20-2023 End: 04-17-2024 temazepam (Restoril) 30 MG capsule Indications: Primary insomnia TAKE 1 CAPSULE AT BEDTIME 90 capsule 1 04/17/2024 Active tiZANidine 4 mg oral tablet (17 sources) Central alpha-2 Adrenergic Agonist Start: 03-13-2024 take 1 tablet by mouth every eight hours for muscle spasms tiZANidine (Zanaflex) 4 MG tablet Indications: Lumbar degenerative disc disease Take 1 tablet (4 mg) by mouth every 8 (eight) hours if needed for muscle spasms 90 tablet 3 03/13/2024 Active Start: 11-02-2023 take 1 tablet by yasmani th three times daily as needed for muscle [...] mg) before bedtime. 60 tablet 10/05/2023 Active ketorolac tromethamine 10 mg oral tablet (3 sources) Nonsteroidal Anti-inflammatory Drug, Cyclooxygenase Inhibitor Start: 02-04-2024 End: 02-21-2024 take 1 tablet by mouth every six hours for pain ketorolac (Toradol) 10 MG tablet Indications: Migraine without aura and with status migrainosus, not intractable (CMS/HCC) Take 1 tablet (10 mg) by mouth every 6 (six) hours if needed for moderate pain or severe pain 10 tablet 02/04/2024 02/21/2024 Discontinued phentermine hydrochloride 37.5 mg oral tablet (5 sources) Sympathomimetic Amine Anorectic Start: 10-05-2023 End: 11-04-2023 take 1 tablet by mouth before mealtime phentermine (Adipex-P) 37.5 MG tablet Indications: Obesity (BMI 30-39.9) Take 1 tablet (37.5 mg) by mouth in the morning. Take before meals. 30 tablet 10/05/2023 11/02/2023 Discontinued Problems Active Problems Problem Classification Problem Date Documented Date Episodic/Chronic Esophageal disorders (20 sources) Gastroesophageal reflux disease without esophagitis; Translations: [Gastro-esophageal reflux disease without esophagitis] Onset: 06-21-2023 06-21-2023 Chronic Essential hypertension (20 sources) Essential hypertension; Translations: [Essential (primary) hypertension] Onset: 07-14-2022 07-14-2022 Chronic Glaucoma (19 sources) Acute angle-closure glaucoma; Translations: [Acute angle-closure glaucoma, unspecified eye] Onset: 11-02-2023 11-02-2023 Chronic Headache; including migraine (20 sources) Migraine without aura, not refractory ; Translations: [Migraine without aura, not intractable, with status migrainosus] Onset: 07-14-2022 07-27-2023 Chronic Menstrual disorders (20 sources) Menorrhagia; Translations: [Excessive and frequent menstruation with regular cycle] Onset: 07-14-2022 07-14-2022 Chronic Miscellaneous mental health disorders (20 sources) Primary insomnia; Translations: [Primary insomnia] Onset: 07-14-2022 12-10-2023 Chronic Mood disorders (20 sources) Moderate recurrent major depression; Translations: [Major depressive disorder, recurrent, moderate] Onset: 06-21-2023 06-21-2023 Chronic Osteoarthritis (20 sources) Osteoarthritis of right hip joint; Translations: [Unilateral primary osteoarthritis, right hip] Onset: 10-05-2023 11-02-2023 Chronic Other endocrine disorders (20 sources) Hypoglycemia; Translations: [Hypoglycemia, unspecified] Onset: 07-14-2022 07-14-2022 Chronic Other endocrine disorders (8 sources) Polycystic ovary; Translations: [Polycystic ovarian syndrome] Onset: 02-28-2013 07-14-2022 Chronic Other endocrine disorders (17 sources) Polycystic ovary syndrome; Translations: [Polycystic ovarian syndrome] Onset: 02-28-2013 12-20-2023 Chronic Other hereditary and degenerative nervous system conditions (20 sources) Restless legs; Translations: [Restless legs syndrome] Onset: 07-14-2022 07-14-2022 Chronic Other nervous system disorders (20 sources) Carpal tunnel syndrome of right wrist; Translations: [Carpal tunnel syndrome, right upper limb] Onset: 07-14-2022 07-14-2022 Chronic Other nervous system disorders (20 sources) Carpal tunnel syndrome of left wrist; Translations: [Carpal tunnel syndrome, left upper limb] Onset: 07-14-2022 07-14-2022 Chronic Other nutritional; endocrine; and metabolic disorders (12 sources) Body mass index 30+ - obesity; Translations: [Obesity, unspecified] Onset: 06-21-2023 06-21-2023 Chronic Other nutritional; endocrine; and metabolic disorders (17 sources) Severe obesity; Translations: [Class 2 severe obesity due to excess calories with serious comorbidity and body mass index (BMI) of 37.0 to 37.9 in adult ([facility])] Onset: 06-21-2023 12-20-2023 Chronic Spondylosis; intervertebral disc disorders; other back problems (20 sources) Degeneration of lumbar intervertebral disc; Translations: [Lumbar degenerative disc disease] Onset: 10-05-2023 11-02-2023 Chronic Unclassified (2 sources) CONTACT W/AND (SUSP) EXPOS COVID-19; Translations: [CONTACT W/AND (SUSP) EXPOS COVID-19] Onset: 01-31-2022 Viral infection (1 source) COVID-19; Translations: [COVID-19] Onset: 01-31-2022 Past or Other Problems Problem Classification Problem Date Documented Da te Episodic/Chronic Abdominal hernia (20 sources) Hernia of anterior abdominal wall; Translations: [Ventral hernia without obstruction or gangrene] Onset: 07-14-2022 07-14-2022 Episodic Deficiency and other anemia (20 sources) Iron deficiency anemia due to dietary causes; Translations: [Other iron deficiency anemias] Onset: 07-14-2022 07-14-2022 Episodic Other female genital disorders (20 sources) Lesion of cervix; Translations: [Noninflammatory disorder of cervix uteri, unspecified] Onset: 07-14-2022 07-14-2022 Episodic Other gastrointestinal disorders (20 sources) History of bypass of stomach; Translations: [Bariatric surgery status] Onset: 06-21-2023 06-21-2023 Episodic Other non-traumatic joint disorders (20 sources) Pain in right knee; Translations: [Pain in joint, lower leg] Onset: 10-05-2023 10-05-2023 Episodic Other non-traumatic joint disorders (1 source) Hip pain; Translations: [Pain in right hip] Onset: 10-05-2023 10-05-2023 Episodic Other non-traumatic joint disorders (4 sources) Pain in right hip joint; Translations: [Pain in right hip] Onset: 10-05-2023 10-05-2023 Episodic Other screening for suspected conditions (not mental disorders or infectious disease) (20 sources) Encounter for screening mammogram for malignant neoplasm of breast; Translations: [Mammography abnormal] Onset: 05-07-2022 Episodic Spondylosis; intervertebral disc disorders; other back problems (5 sources) Chronic low back pain; Translations: [Lumbago with sciatica, right side] Onset: 10-05-2023 10-05-2023 Episodic Unclassified (1 source) CONTACT W/AND (SUSP) EXPOS COVID-19; Translations: [CONTACT W/AND (SUSP) EXPOS COVID-19] Onset: 01-27-2022 Viral infection (20 sources) Disease caused by 2019-nCoV; Translations: [COVID-19] Onset: 07-14-2022 Resolved: 06-21-2023 06-21-2023 Episodic Results Test Name Value Interpretation Reference Range Facility IGP,APTIMA HPV,AGE GDLNon AGE GDLN ACOG TESTING Note . [facility] Comment on above: TESTS RESULT FLAG U NITS REF RANGE LAB Clinician Provided Cytology Information Source.............Cervix;Endocervix No. of containers..01 ThinPrep Vial Age Algo ACOG Marely... FLAG LEGEND: L-Low Normal,H-High Normal,LL-Alert Low,HH-Alert High <-Panic Low,>-Panic High,A-Abnormal,AA-Critical Abnormal Performed at: 01 =[address] [place] [address] Chioma Mason MD, HPV APTIMA Negative Negative [facility] Comment on above: This nucleic acid am plification test detects fourteen high- risk HPV types (16,18,31,33,35,39,45,51,52,56,58,59,66,68) without differentiation. Performed at: =[facility], [place] [id number] School Bus Driver/Teacher Assistant: Chioma Mason MD, Phone: [phone] Performed at: - [address], [place] [id number] School Bus Driver/Teacher Assistant: Chioma Mason MD, Phone: [phone] IGP, APTIMA HPV, RFX 16/18,45 Note . [facility] Comment on above: TESTS RESULT FLAG UN ITS REF RANGE LAB DIAGNOSIS: 02 NEGATIVE FOR INTRAEPITHELIAL LESION OR MALIGNANCY. Specimen adequacy: 02 Satisfactory for evaluation. No endocervical component is identified. Performed by: Rachel Brandt Kennel Attendant (ASC) . 02 Note: Note 02 The Pap smear is a screening test designed to aid in the detection of premalignant and malignant conditions of the uterine cervix. It is not a diagnostic procedure and should not be used as the sole means of detecting cervical cancer. Both false-positive and false-negative reports do occur. Test Methodology: Note 02 The [employer] Truck Driver was unable to read this specimen. Therefore a manual review was performed. FLAG LEGEND: L-Low Normal,H-High Normal,LL-Alert Low,HH-Alert High <-Panic Low,>-Panic High,A-Abnormal,AA-Critical Abnormal Performed at: 02 [facility] [address] [address] Chioma Mason MD, HPV Genotype Reflex Note 02 Criteria not met, HPV Genotype not performed. Criteria not met, HPV Genotype not performed. BRUSH-SPATULA CERVIX ENDOCERVIX [facility] ComputingNE [facility] S[facility]EN 3D ANDRY CADon 05-07-2022 MG MAMM SCREEN 3D ANDRY CAD Patient: AYLA BARBER Exam Date: 05/07/2022 : 1975 Gender:F Ordering : DR SIMONA DEJESUS . Admission #: [id number] Family : Order #: [id number] CLICK HERE TO VIEW EXAM RADIOLOGY REPORT [...] for this test is supported by the African History Professor of Health and Human Service's (HHS's) declaration [...] C VDTBH #### [facility] [address] [place] [address] Dr. Abby Kumar CBC AUTO DIFFon 12-04-2021 BASO # 0.0 103/ul Normal 0.0-0.1 [facility] Comment on above: Performed By: #### L IPID, TSH, BMP, LIVER #### [facility] [address] [place] [address] Dr. Abby Kumar Basophils/100 WBC (Bld) 0.4 % Normal 0.2-2.0 [facility] Comment on above: Performed By: #### L IPID, TSH, BMP, LIVER #### [facility] [address] [place] [address] Dr. Abby Kumar EO # 0.1 103/ul Normal 0.0-0.7 [facility] Comment on above: Performed By: #### L IPID, TSH, BMP, LIVER #### [facility] [address] [place] [address] Dr. Abby Kumar Eosinophils/100 WBC (Bld) 2.4 % Normal 0.9-7.0 [facility] Comment on above: Performed By: #### L IPID, TSH, BMP, LIVER #### [facility] [address] [place] [address] Dr. Abby Kumar Erythrocyte distribution width (RBC) [Ratio] 14.4 % Normal 11.0-15.0 [facility] Comment on above: Performed By: #### L IPID, TSH, BMP, LIVER #### [facility] [address] [place] [address] Dr. Abby Kumar Hematocrit (Bld) [Volume fraction] 41.0 % Normal 36.0-48.0 [facility] Comment on above: Performed By: #### L IPID, TSH, BMP, LIVER #### [facility] [address] [place] [address] Dr. Abby Kumar Hemoglobin (Bld) [Mass/Vol] 12.9 g/dL Normal 12.0-16.0 [facility] Comment on above: Performed By: #### L IPID, TSH, BMP, LIVER #### [facility] [address] [place] [address] Dr. Abby Kumar IG # 0.01 10e3/ul Normal 0.00-0.03 [facility] Comment on above: Performed By: #### L IPID, TSH, BMP, LIVER #### [facility] [address] [place] [address] Dr. Abby Kumar IG % 0.2 % Normal 0.0-0.5 [facility] Comment on above: Performed By: #### L IPID, TSH, BMP, LIVER #### [facility] [address] [place] [address] Dr. Abby Kumar LYMPH # 1.8 103/ul Normal 1.2-3.8 [facility] Comment on above: Performed By: #### L IPID, TSH, BMP, LIVER #### [facility] [address] [place] [address] Dr. Abby Kumar Lymphocytes/100 WBC (Bld) 35.7 % Normal 20.5-60.0 [facility] Comment on above: Performed By: #### L IPID, TSH, BMP, LIVER #### [facility] [address] [place] [address] Dr. Abby Kumar MANUAL DIFF REQ NO Normal [facility] Comment on above: Performed By: #### L IPID, TSH, BMP, LIVER #### [facility] [address] [place] [address] Dr. Abby Kumar MCH (RBC) [Entitic mass] 27.6 pg Normal 26.7-34.0 [facility] Comment on above: Performed By: #### L IPID, TSH, BMP, LIVER #### [facility] [address] [place] [address] Dr. Abby Kumar MCHC (RBC) [Mass/Vol] 31.5 g/dL Normal 29.9-35.2 [facility] Comment on above: Performed By: #### L IPID, TSH, BMP, LIVER #### [facility] [address] [place] [address] Dr. Abby Kumar MCV (RBC) [Entitic vol] 87.6 fL Normal 81.0-99.0 [facility] Comment on above: Performed By: #### L IPID, TSH, BMP, LIVER #### [facility] [address] [place] [address] Dr. Abby Kumar MONO # 0.4 103/ul Normal 0.3-0.8 [facility] Comment on above: Performed By: #### L IPID, TSH, BMP, LIVER #### [facility] [address] [place] [address] Dr. Abby Kumar Monocytes/100 WBC (Bld) 8.4 % Normal 1.7-12.0 [facility] Comment on above: Performed By: #### L IPID, TSH, BMP, LIVER #### [facility] [address] [place] [address] Dr. Abby Kumar NEUT # 2.6 103/ul Normal 1.4-6.5 [facility] Comment on above: Performed By: #### L IPID, TSH, BMP, LIVER #### [facility] [address] [place] [address] Dr. Abby Kumar Neutrophils/100 WBC (Bld) 52.9 % Normal 43.0-75.0 [facility] Comment on above: Performed By: #### L IPID, TSH, BMP, LIVER #### [facility] [address] [address] [address] Abby Kumar Platelet mean volume (Bld) [Entitic vol] 11.0 fL Normal 9.5-13.5 [facility] Comment on above: Performed By: #### L IPID, TSH, BMP, LIVER #### [facility] [address] [address] [address] Abby Kumar PLT 230 103/ul Normal 150-450 [facility] Comment on above: Performed By: #### L IPID, TSH, BMP, LIVER #### [facility] [address] [address] [address] Abby Kumar RBC 4.68 106/ul Normal 4.20-5.40 [facility] Comment on above: Performed By: #### L IPID, TSH, BMP, LIVER #### [facility] [address] [address] [address] Abby Kumar WBC 5.0 103/ul Normal 4.0-11.0 [facility] Comment on above: Performed By: #### L IPID, TSH, BMP, LIVER #### [facility] [address] [address] [address] Abby Kumar GLYCOHEMOGLOBIN A1Con 2021 ADA RECOMMENDATION SEE BELOW Normal [facility] Comment on above: Result Comment: ADA RECOMMENDED LIMIT 4.0 - 6.0 ADA THERAPEUTIC TARGET < 7.0 ACTION SUGGESTED > 7.0 Performed By: #### A 1C #### [facility] [address] [address] [address] Abby Kumar Glucose [Mass/Vol] 114 mg/dL Normal [facility] Comment on above: Performed By: #### A 1C #### [facility] [address] [place] [address] Dr. Abby Kumar HbA1c (Bld) [Mass fraction] 5.6 % Normal 4.5-6.2 [facility] Comment on above: Performed By: #### A 1C #### [facility] [address] [address] [address] Abby Kumar IRONon 12-04-2021 Iron [Mass/Vol] 84.0 ug/dL Normal 50.0-170.0 [facility] Comment on above: Performed By: #### V ITB12, IRON, VITAD #### [facility] [address] [address] [address] Abby Kumar LIPID PROFILEon 12-04-2021 CHOL-HDL RATIO NORM SEE BELOW Normal [facility] Comment on above: Result Comment: 3.3 - 4.4 LOW RISK 4.4 - 7.1 AVERAGE RISK 7.1 - 11.0 MODERATE RISK >11.0 HIGH RISK Performed By: #### L IPID, TSH, BMP, LIVER #### [facility] [address] [address] [address] Abby Kumar Cholesterol [Mass/Vol] 213 mg/dL Critically high <=200 [facility] Comment on above: Performed By: #### L IPID, TSH, BMP, LIVER #### [facility] [address] [address] [address] Abby Kumar Cholesterol in HDL [Mass/Vol] 67 mg/dL Critically high 40-60 [facility] Comment on above: Performed By: #### L IPID, TSH, BMP, LIVER #### [facility] [address] [address] [address] Abby Kumar Cholesterol in LDL [Mass/Vol] 135.0 mg/dL Normal [facility] Comment on above: Performed By: #### L IPID, TSH, BMP, LIVER #### [facility] [address] [address] [address] Abby Kumar Cholesterol.total/Ch olesterol in HDL [Mass ratio] 3.2 {ratio} Normal [facility] Comment on above: Performed By: #### L IPID, TSH, BMP, LIVER #### [facility] [address] [address] [address] Abby Kumar HDL NORMAL > or = 60 mg/dl - LOW CARDIOVASCULAR RISK <40 mg/dl - HIGH CARDIOVASCULAR RISK Normal [facility] Comment on above: Performed By: #### L IPID, TSH, BMP, LIVER #### [facility] [address] [address] [address] Abby Kumar LDL CALC NORMAL SEE BELOW Normal [facility] Comment on above: Result Comment: <100 mg/dl OPTIMAL 100 - 129 mg/dl NEAR OR ABOVE OPTIMAL 130 - 159 mg/dl BORDERLINE HIGH 160 - 189 mg/dl HIGH >190 mg/dl VERY HIGH Performed By: #### L IPID, TSH, BMP, LIVER #### [facility] [address] [address] [address] Abby Kumar Triglyceride [Mass/Vol] 55 mg/dL Normal <=150 [facility] Comment on above: Performed By: #### L IPID, TSH, BMP, LIVER #### [facility] [address] [address] [address] Abby Kumar VLDL CALC 11.0 mg/dL Normal [facility] Comment on above: Performed By: #### L IPID, TSH, BMP, LIVER #### [facility] [address] [address] [address] Abby Kumar LIVER PROFILEon 12-04-2021 Albumin [Mass/Vol] 3.7 g/dL Normal 3.4-5.0 [facility] Comment on above: Performed By: #### L IPID, TSH, BMP, LIVER #### [facility] [address] [address] [address] Abby Kumar Albumin/Globulin [Mass ratio] 1.1 {ratio} Normal [facility] Comment on above: Performed By: #### L IPID, TSH, BMP, LIVER #### [facility] [address] [address] [address] Abby Kumar ALP [Catalytic activity/Vol] 58 U/L Normal 46-116 [facility] Comment on above: Performed By: #### L IPID, TSH, BMP, LIVER #### [facility] [address] [address] [address] Abby Kumar ALT [Catalytic activity/Vol] 12 U/L Critically low 14-59 [facility] Comment on above: Performed By: #### L IPID, TSH, BMP, LIVER #### [facility] [address] [place] [address] Dr. Abby Kumar AST [Catalytic activity/Vol] 10 U/L Critically low 15-37 [facility] Comment on above: Performed By: #### L IPID, TSH, BMP, LIVER #### [facility] [address] [place] [address] Dr. Abby Kumar BILI, CONJUGATED 0.1 mg/dL Normal 0.0-0.2 [facility] Comment on above: Performed By: #### L IPID, TSH, BMP, LIVER #### [facility] [address] [place] [address] Dr. Abby Kumar Bilirubin [Mass/Vol] 0.4 mg/dL Normal 0.2-1.0 [facility] Comment on above: Performed By: #### L IPID, TSH, BMP, LIVER #### [facility] [address] [place] [address] Dr. Abby Kumar Globulin (S) [Mass/Vol] 3.5 g/dL Normal [facility] Comment on above: Performed By: #### L IPID, TSH, BMP, LIVER #### [facility] [address] [place] [address] Dr. Abby Kumar Protein [Mass/Vol] 7.2 g/dL Normal 6.4-8.2 [facility] Comment on above: Performed By: #### L IPID, TSH, BMP, LIVER #### [facility] [address] [place] [address] Dr. Abby Kumar PROF CHEM 8 (BAS METB)on Anion gap [Moles/Vol] 11.7 mmol/L Normal [facility] Comment on above: Performed By: #### L IPID, TSH, BMP, LIVER #### [facility] [address] [place] [address] Dr. Abby Kumar Calcium [Mass/Vol] 8.6 mg/dL Normal 8.5-10.1 [facility] Comment on above: Performed By: #### L IPID, TSH, BMP, LIVER #### [facility] [address] [place] [address] Dr. Abby Kumar Chloride [Moles/Vol] 105 mmol/L Normal 98-107 [facility] Comment on above: Performed By: #### L IPID, TSH, BMP, LIVER #### [facility] [address] [place] [address] Dr. Abby Kumar CO2 [Moles/Vol] 27.4 mmol/L Normal 21.0-32.0 [facility] Comment on above: Performed By: #### L IPID, TSH, BMP, LIVER #### [facility] [address] [place] [address] Dr. Abby Kumar Creatinine [Mass/Vol] 0.80 mg/dL Normal 0.55-1.02 [facility] Comment on above: Performed By: #### L IPID, TSH, BMP, LIVER #### [facility] [address] [place] [address] Dr. Abby Kumar EGFR-AF SOU[place]OREAN >60 Normal >=60 [facility] Comment on above: Performed By: #### L IPID, TSH, BMP, LIVER #### [facility] [address] [place] [address] Dr. Abby Kumar EGFR-NON AF [place]OU[place]OREAN >60 Normal >=60 [facility] Comment on above: Performed By: #### L IPID, TSH, BMP, LIVER #### [facility] [address] [place] [address] Dr. Abby Kumar Glucose [Mass/Vol] 74 mg/dL Normal 74-106 [facility] Comment on above: Performed By: #### L IPID, TSH, BMP, LIVER #### [facility] [address] [place] [address] Dr. Abby Kumar Potassium [Moles/Vol] 4.1 mmol/L Normal 3.5-5.1 [facility] Comment on above: Performed By: #### L IPID, TSH, BMP, LIVER #### [facility] [address] [place] [address] Dr. Abby Kumar Sodium [Moles/Vol] 140 mmol/L Normal 136-145 [facility] Comment on above: Performed By: #### L IPID, TSH, BMP, LIVER #### [facility] [address] [place] [address] Dr. Abby Kumar Urea nitrogen [Mass/Vol] 13.0 mg/dL Normal 7.0-18.0 [facility] Comment on above: Performed By: #### L IPID, TSH, BMP, LIVER #### [facility] [address] [address] [address] Abby Kumar Urea nitrogen/Creatinine [Mass ratio] 16.2 mg/mg Normal [facility] Comment on above: Performed By: #### L IPID, TSH, BMP, LIVER #### [facility] [address] [place] [address] Dr. Abby Kumar TSHon 12-04-2021 TSH 2.390 uIU/mL Normal 0.358-3.740 [facility] Comment on above: Performed By: #### L IPID, TSH, BMP, LIVER #### [facility] [address] [place] [address] Dr. Abby Kumar VITAMIN B12on 12-04-2021 Cobalamin (Vitamin B12) [Mass/Vol] 404.0 pg/mL Normal 193.0-986.0 [facility] Comment on above: Performed By: #### V ITB12, IRON, VITAD #### [facility] [address] [place] [address] Dr. Abby Kumar VITAMIN D 25 OHon 12-04-2021 VIT D 25-OH 36.0 ng/mL Normal [facility] Comment on above: Performed By: #### V ITB12, IRON, VITAD #### [facility] [address] [place] [address] Dr. Abby Kumar VIT D RANGES SEE BELOW Normal [facility] Comment on above: Result Comment: <20 ng/mL Vit D deficient 20 - <30 ng/mL Vit D insufficient 30 - 100 ng/mL Vit D sufficient >100 ng/mL Potential Toxicity Performed By: #### V ITB12, IRON, VITAD #### [facility] [address] [place] [address] Dr. Abby Kumar Vital Signs Date Time Vital Sign Value Performing Clinician Magaly gan 05-23-2024 13:06-0400 Body mass index (BMI) [Ratio] 35.67 kg/m2 Dipti Donnelly ERISA ATTORNEY Work Phone: [facility] 05-23-2024 13:06-0400 Body weight 88.45 kg Dipti Donnelly [employer] ATTORNEY Work Phone: [facility] 05-23-2024 13:06-0400 Diastolic blood pressure 100 mm[Hg] Dipti Donnelly ERISA ATTORNEY Work Phone: [facility] 05-23-2024 13:06-0400 Systolic blood pressure 140 mm[Hg] Dipti Donnelly ERISA ATTORNEY Work Phone: [facility] 04-18-2024 15:23-0500 Body height 157.5 cm Edy Hardy MD Work Phone: [facility] 04-18-2024 15:23-0500 Body mass index (BMI) [Ratio] 37.49 kg/m2 Edy Hardy MD Work Phone: [facility] 04-18-2024 15:23-0500 Body temperature 97.5 [degF] Edy Hardy MD Work Phone: [facility] 04-18-2024 15:23-0500 Body weight 92.99 kg Edy Hardy MD Work Phone: [facility] 04-18-2024 15:23-0500 Diastolic blood pressure 86 mm[Hg] Edy Hardy MD Work Phone: [facility] 04-18-2024 15:23-0500 Heart rate 82 /min Edy Hardy MD Work Phone: [facility] 04-18-2024 15:23-0500 Respiratory rate 22 /min Edy Hardy MD Work Phone: [facility] 04-18-2024 15:23-0500 SaO2% (BldA) [Mass fraction] 99 % Edy Hardy MD Work Phone: [facility] 04-18-2024 15:23-0500 Systolic blood pressure 142 mm[Hg] Edy Hardy MD Work Phone: [facility] 02-21-2024 14:37-0500 Body height 157.5 cm Edy Hardy MD Work Phone: [facility] 02-21-2024 14:37-0500 Body mass index (BMI) [Ratio] 36.58 kg/m2 Edy Hardy MD Work Phone: [facility] 02-21-2024 14:37-0500 Body temperature 97.11 [degF] Edy Hardy MD Work Phone: [facility] 02-21-2024 14:37-0500 Body weight 90.72 kg Edy Hardy MD Work Phone: [facility] 02-21-2024 14:37-0500 Diastolic blood pressure 70 mm[Hg] Edy Hardy MD Work Phone: [facility] 02-21-2024 14:37-0500 Heart rate 69 /min Edy Hardy MD Work Phone: [facility] 02-21-2024 14:37-0500 Respiratory rate 22 /min Edy Hardy MD Work Phone: [facility] 02-21-2024 14:37-0500 SaO2% (BldA) [Mass fraction] 99 % Edy Hardy MD Work Phone: [facility] 02-21-2024 14:37-0500 Systolic blood pressure 132 mm[Hg] Edy Hardy MD Work Phone: [facility] 12-20-2023 13:15-0500 Body height 157.5 cm Edy Hardy MD Work Phone: [facility] 12-20-2023 13:15-0500 Body mass index (BMI) [Ratio] 37.13 kg/m2 Edy Hardy MD Work Phone: [facility] 12-20-2023 13:15-0500 Body temperature 97.3 [degF] Edy Hardy MD Work Phone: [facility] 12-20-2023 13:15-0500 Body weight 92.08 kg Edy Hardy MD Work Phone: [facility] 12-20-2023 13:15-0500 Diastolic blood pressure 80 mm[Hg] Edy Hardy MD Work Phone: [facility] 12-20-2023 13:15-0500 Heart rate 57 /min Edy Hardy MD Work Phone: [facility] 12-20-2023 13:15-0500 Respiratory rate 22 /min Edy Hardy MD Work Phone: [facility] 12-20-2023 13:15-0500 SaO2% (BldA) [Mass fraction] 99 % Edy Hardy MD Work Phone: [facility] 12-20-2023 13:15-0500 Systolic blood pressure 144 mm[Hg] Edy Hardy MD Work Phone: [facility] 11-02-2023 14:34-0400 Body height 157.5 cm Edy Hardy MD Work Phone: [facility] 11-02-2023 14:34-0400 Body mass index (BMI) [Ratio] 36.58 kg/m2 Edy Hardy MD Work Phone: [facility] 11-02-2023 14:34-0400 Body temperature 97.11 [degF] Edy Hardy MD Work Phone: [facility] 11-02-2023 14:34-0400 Body weight 90.72 kg Edy Hardy MD Work Phone: [facility] 11-02-2023 14:34-0400 Diastolic blood pressure 80 mm[Hg] Edy Hardy MD Work Phone: [facility] 11-02-2023 14:34-0400 Heart rate 92 /min Edy Hardy MD Work Phone: [facility] 11-02-2023 14:34-0400 Respiratory rate 18 /min Edy Hardy MD Work Phone: [facility] 11-02-2023 14:34-0400 SaO2% (BldA) [Mass fraction] 99 % Edy Hardy MD Work Phone: [facility] 11-02-2023 14:34-0400 Systolic blood pressure 130 mm[Hg] Edy Hardy MD Work Phone: [facility] 10-05-2023 14:48-0400 Body height 157.5 cm Edy Hardy MD Work Phone: [facility] 10-05-2023 14:48-0400 Body mass index (BMI) [Ratio] 35.85 kg/m2 Edy Hardy MD Work Phone: [facility] 10-05-2023 14:48-0400 Body temperature 97.11 [degF] Edy Hardy MD Work Phone: [facility] 10-05-2023 14:48-0400 Body weight 88.91 kg Edy Hardy MD Work Phone: [facility] 10-05-2023 14:48-0400 Diastolic blood pressure 100 mm[Hg] Edy Hardy MD Work Phone: [facility] 10-05-2023 14:48-0400 Heart rate 76 /min Edy Hardy MD Work Phone: [facility] 10-05-2023 14:48-0400 Respiratory rate 18 /min Edy Hardy MD Work Phone: [facility] 10-05-2023 14:48-0400 SaO2% (BldA) [Mass fraction] 97 % Edy Hardy MD Work Phone: [facility] 10-05-2023 14:48-0400 Systolic blood pressure 152 mm[Hg] Edy Hardy MD Work Phone: [facility] Encounters Encounter Date Encounter Type Care Provider Facility Start: 05-23-2024 End: 05-23-2024 Bamboo PermissionTVheet Dipti Donnelly ERISA ATTORNEY Work Phone: [facility] Start: 05-23-2024 End: 05-26-2024 Bamboo flowsheet Dipti Donnelly ERISA ATTORNEY Work Phone: [facility] Start: 05-23-2024 End: 05-26-2024 Clinisync Result Encounter Generic External Data Provider [facility] External Department Unsolicited Start: 05-23-2024 End: 05-23-2024 Patient encounter procedure Dipti Donnelly NP Work Phone: [facility] Start: 05-23-2024 End: 05-23-2024 Periodic preventive med est patient 40-64yrs Dipti Donnelly NP Work Phone: [facility] Comment on above: Well woman exam with routine gynecological exam; Encounter for screening mammogram for malignant neoplasm of breast; PCOS (polycystic ovarian syndrome) Start: 05-23-2024 End: 05-23-2024 ambulatory DIPTI DONNELLY Not Available Start: 04-18-2024 End: 04-18-2024 Office outpatient visit 25 minutes Edy Hardy MD Work Phone: [facility] Comment on above: Essential hypertensi on (CMS/HCC) (Primary Dx); Migraine without aura and with status migrainosus, not intractable (CMS/HCC); MDD (major depressive disorder), recurrent episode, moderate (CMS/HCC); Primary insomnia; Degeneration of intervertebral disc of lumbar region with discogenic back pain and lower extremity pain Start: 04-18-2024 End: 04-18-2024 ambulatory EDY HARDY Not Available Start: 04-18-2024 End: 04-18-2024 The fresh [employer] Permission[employer]heet Edy Hardy MD Work Phone: [facility] Start: 04-18-2024 End: 04-18-2024 Bamboo flowsheet Edy Hardy MD Work Phone: [facility] Start: 04-17-2024 End: 04-17-2024 Refill Edy Hardy MD Work Phone: [facility] Comment on above: Primary insomnia Start: 02-21-2024 End: 02-21-2024 Office outpatient visit 25 minutes Edy Hardy MD Work Phone: [facility] Comment on above: Essential hypertensi on (CMS/HCC) (Primary Dx); Migraine without aura and with status migrainosus, not intractable (CMS/HCC); MDD (major depressive disorder), recurrent episode, moderate (CMS/HCC); Primary insomnia; Degeneration of intervertebral disc of lumbar region with discogenic back pain and lower extremity pain; Class 2 severe obesity due to excess calories with serious comorbidity and body mass index (BMI) of 37.0 to 37.9 in adult (CMS/HCC) Start: 02-21-2024 End: 02-21-2024 ambulatory EDY HARDY Not Available Start: 02-21-2024 End: 02-21-2024 Bamboo flowsheet Edy Hardy MD Work Phone: [facility] Start: 02-21-2024 End: 02-21-2024 Bamboo flowsheet Edy Hardy MD Work Phone: [facility] Start: 12-20-2023 End: 12-20-2023 Office outpatient visit 25 minutes Edy Hardy MD Work Phone: [facility] Comment on above: Essential hypertensi [...] disease without esophagitis Start: 12-20-2023 End: 12-20-2023 Bamboo flowsheet Edy Hardy MD Work Phone: [facility] Start: 12-20-2023 End: 12-20-2023 Bamboo flowsheet Edy Hardy MD Work Phone: [facility] Start: 12-20-2023 End: 12-20-2023 ambulatory EDY HARDY Not Available Start: 12-10-2023 End: 12-13-2023 Refill Edy Hardy MD Work Phone: [facility] Comment on above: Primary insomnia Start: [...] Not Available Start: 11-02-2023 End: 11-02-2023 Bamboo flowsheet Edy [...] examination without abnormal findings DR EDY HARDY [facility] Start: 12-04-2021 End: 12-05-[address] EDY HARDY Facility:[facility] Start: 12-04-2021 End: 12-05-2021 Encounter for general adult medical examination without abnormal findings DR EDY HARDY Facility:[facility] Procedures Date Procedure Procedure Detail Performing Clinician Start: 05-23-2024 IGP,APTIMA HPV,AGE GDLN Dipti Donnelly NP Work Phone: Start: 08-23-2023 Mammography Edy Hardy MD Work Phone: Start: 08-10-2023 Colonoscopy Edy Hardy MD Work Phone: Start: 08-26-2022 Microscopic observation [Identifier] in Cervix by Cyto stain Dipti Donnelly ERISA ATTORNEY Work Phone: Start: 07-14-2022 H/O: surgery H/O bilateral salpingectomy Edy Hardy MD Work Phone: Start: 05-07-2022 Microscopic observation [Identifier] in Cervix by Cyto stain Edy Hardy MD Work Phone: Plan of Treatment Date Care Activity Detail Author Start: 08-09-2033 Screening for malign ant neoplasm of colon [facility] Start: 10-02-2027 Screening for malign ant neoplasm of cervix [facility] Start: 05-08-2027 Screening for malign ant neoplasm of cervix Pap Smear [facility] Start: 08-26-2025 Screening for malign ant neoplasm of cervix Pap Smear [facility] Start: 05-24-2025 End: 05-24-2025 Patient encounter procedure 05/24/2025 3:00 PM EDT Office Visit [facility] [address] [place] [address] Mariana Shell PA [address] [place], [place] [id number] [facility] Start: 10-19-2024 End: 10-19-2024 Patient encounter procedure 10/19/2024 2:30 PM EDT Office Visit [facility] [address] [place] [phone] Edy Hardy MD [address] [place] [address] [facility] Start: 10-16-2024 Influenza vaccination Influenz a Vaccine (Season Ended) [facility] Start: 08-22-2024 Screening for malign ant neoplasm of breast Mammogram [facility] Start: 05-31-2024 End: 05-31-2024 Professional / ancillary services management 05/31/2024 1:00 PM EDT Ancillary Procedure [facility] [address] [place] [address] [facility] Start: 05-23-2024 End: 05-23-2025 DHEA DHEA Lab Routine PCOS (polycystic ovarian syndrome) Expected: 05/23/2024 (Approximate), Expires: 05/23/2025 [facility] Comment on above: Expected: 05/23/2024 (Approximate), Expires: 05/23/2025 Start: 05-23-2024 End: 05-23-2025 US Pelvis US Pelvis w/ TV Imaging Routine PCOS (polycystic ovarian syndrome) Expected: 05/23/2024, Expires: 05/23/2025 [facility] Comment on above: Expected: 05/23/2024 , Expires: 05/23/2025 Start: 05-23-2024 End: 05-23-2024 Patient encounter procedure 05/23/2024 1:00 PM EDT Office Visit [facility] [address] [place] [phone] Dipti Donnelly, JENNIFER [address] [place] [address] Arrived [facility] Comment on above: Arrived Start: 04-18-2024 End: 04-18-2024 Patient encounter procedure [facility] Comment on above: Arrived Start: 02-21-2024 End: 02-21-2024 Patient encounter procedure [facility] Comment on above: Arrived Start: 02-01-2024 End: 02-01-2024 Patient encounter procedure 02/01/2024 3:30 PM EST Office Visit [facility] [address] [place] [phone] Edy Hardy MD [address] [place] [address] [facility] Start: 12-20-2023 End: 12-20-2023 Patient encounter procedure [facility] Comment on above: Arrived Start: 11-02-2023 End: 11-02-2023 Patient encounter procedure [facility] Comment on above: Arrived Start: 10-17-2023 Influenza vaccination Influenza Vacc ine (#1) [facility] Start: 10-05-2023 End: 10-05-2023 Patient encounter procedure 10/05/2023 2:45 PM EDT Office Visit [facility] [address] [place] [phone] Edy Hardy MD [address] [place] [address] Arrived [facility] Comment on above: Arrived Start: 10-05-2023 End: 10-04-2024 XR Hip - right 3 Views XR hip right 2 or 3 views Imaging Routine Right hip pain Expected: 10/05/2023, Expires: 10/04/2024 [facility] Comment on above: Expected: 10/05/2023 , Expires: 10/04/2024 Start: 10-05-2023 End: 10-04-2024 XR Knee - right 3 Views XR knee 3 views right Imaging Routine Right knee pain, unspecified chronicity Expected: 10/05/2023, Expires: 10/04/2024 [facility] Comment on above: Expected: 10/05/2023 , Expires: 10/04/2024 Start: 10-05-2023 End: 10-04-2024 XR Lumbar spine 2 or 3 Views XR lumbar spine 2 or 3 views Imaging Routine Chronic bilateral low back pain with right-sided sciatica Expected: 10/05/2023, Expires: 10/04/2024 [facility] Work Phone: Comment on above: Expected: 10/05/2023 , Expires: 10/04/2024 Start: 1975 Screening for malign ant neoplasm of colon [facility] CBC W Auto Different ial panel - Blood CBC and differential Lab Routine PCOS (polycystic ovarian syndrome) Ordered: 05/23/2024 [facility] Comment on above: Ordered: 05/23/2024 DHEA-sulfate DHEA-sulfate Lab Routine PCOS (polycystic ovarian syndrome) Ordered: 05/23/2024 [facility] Comment on above: Ordered: 05/23/2024 Follicle stimulating hormone Follicle stimulating hormone Lab Routine PCOS (polycystic ovarian syndrome) Ordered: 05/23/2024 [facility] Comment on above: Ordered: 05/23/2024 hCG, quantitative, hCG, quantitative, Lab Routine PCOS (polycystic ovarian syndrome) Ordered: 05/23/2024 [facility] Comment on above: Ordered: 05/23/2024 Hemoglobin A1c/Hemoglobin.total in Blood Hemoglobin A1c Lab Routine PCOS (polycystic ovarian syndrome) Ordered: 05/23/2024 [facility] Comment on above: Ordered: 05/23/2024 Luteinizing hormone Luteinizing hormone Lab Routine PCOS (polycystic ovarian syndrome) Ordered: 05/23/2024 [facility] Comment on above: Ordered: 05/23/2024 THIN PREP TIS PAP AN D HR HPV DNA THIN PREP TIS PAP AND HR HPV DNA Pathology and Cytology Routine Well woman exam with routine gynecological exam Ordered: 05/23/2024 [facility] Work Phone: Comment on above: Ordered: 05/23/2024 Thyrotropin [Units/volume] in Serum or Plasma TSH Lab Routine PCOS (polycystic ovarian syndrome) Ordered: 05/23/2024 [facility] Comment on above: Ordered: 05/23/2024 Thyroxine (T4) free [Mass/volume] in Serum or Plasma T4, free Lab Routine PCOS (polycystic ovarian syndrome) Ordered: 05/23/2024 [facility] Comment on above: Ordered: 05/23/2024 Payers Date Payer Category Payer [facility] [id number] 2021 Unknown BCBS BCBS xxxxxx [id number] 2021-Present [phone] [address] [place] [address] [id number] 1976 Unknown [id number] [id number]. 593 1976 Unknown [id number] [id number]. 593 1976 Unknown [id number] [id number]. 593 1976 Unknown [id number] [id number]. 1259 1976 Unknown [id number] [id number]. 1259 1976 Unknown [id number] [id number]. 1258 1976 Unknown [id number] [id number]. 1258 1976 Unknown [id number] [id number]. 1258 1976 Unknown [id number] [id number]. 1258 1976 Unknown [id number] [id number]. 1258 1976 Unknown [id number] [id number]. 1258 1976 Unknown [id number] [id number]. 9 1959 Unknown [id number] Social History Date Type Detail Facility Start: 07-13-2022 Tobacco smoking stat [facility] Never smoked tobacco [facility] Start: 07-13-2022 Tobacco use and exposure Smoke less tobacco non-user [facility] Start: 11-02-2023 End: 05-23-2024 Alcoholic beverage intake Ex-drinker (finding) [facility] Start: 06-14-2023 End: 04-18-2024 History of Social function [facility] Start: 06-14-2023 End: 04-18-2024 Social connection and isolation panel [facility] How often do you att end episcopal or church services? Patient declined [facility] Are you [...] Choose not to dis close [facility] Clinical Notes 10-05-2023 to 05-23-2024 Claudia Jhons MA - 05/23/2024 1:00 PM Teresa Hardy MD - 04/18/2024 4:10 PM Young Hardy MD - 04/18/2024 4:10 PM Young Hardy MD - 04/18/2024 4:09 PM EST Note Date & Type Note Facility 05-23-2024 History of Presen t illness Narrative Reason for Appointment: Patient ID: Ayla Barber is a 49 y.o. female who presents for Well Women Visit Patient presents today for Annual Exam. MEDICATIONS Current Outpatient Medications Medication Instructions amitriptyline (ELAVIL) 25 mg, Oral, Nightly eletriptan (Relpax) 40 MG tablet TAKE 1 TABLET ONE TIME IF NEEDED FOR MIGRAINE. TAKE 1 TABLET AT ONSET OF HEADACHE, MAY REPEAT IN 2 HOURS ONE TIME lamoTRIgine (LAMICTAL) 100 mg, Oral, Nightly losartan (COZAAR) 25 mg, Oral, Daily metFORMIN XR (GLUCOPHAGE-XR) 500 mg, Oral, Daily with evening meal pantoprazole (PROTONIX) 40 mg, Oral, Daily before breakfast temazepam (RESTORIL) 30 mg, Oral, Nightly tiZANidine (ZANAFLEX) 4 mg, Oral, Every 8 hours PRN ALLERGIES Allergies Allergen Reactions Omeprazole Unknown PROBLEMS Active Ambulatory Problems Diagnosis Date Noted Abnormal mammogram 07/14/2022 Essential hypertension (CMS/HCC) 07/14/2022 H/O bilateral salpingectomy 07/14/2022 Hypoglycemia 07/14/2022 Primary insomnia 07/14/2022 Iron deficiency anemia due to dietary causes 07/14/2022 Carpal tunnel syndrome, right 07/14/2022 Left carpal tunnel syndrome 07/14/2022 Lesion of cervix 07/14/2022 Menorrhagia 07/14/2022 Migraine without aura and with status migrainosus, not intractable ([facility]/HCC) 07/14/2022 Restless legs syndrome 07/14/2022 Ventral hernia without obstruction or gangrene 07/14/2022 PCOS (polycystic ovarian syndrome) 02/28/2013 Class 2 severe obesity due to excess calories with serious comorbidity and body mass index (BMI) of 37.0 to 37.9 in adult ([facility]) 06/21/2023 H/O gastric bypass 06/21/2023 MDD (major depressive disorder), recurrent episode, moderate ([facility]) 06/21/2023 Gastroesophageal reflux disease without esophagitis 06/21/2023 Primary osteoarthritis of right hip 10/05/2023 Lumbar degenerative disc disease 10/05/2023 Right knee pain 10/05/2023 Acute angle-closure glaucoma 11/02/2023 Resolved Ambulatory Problems Diagnosis Date Noted Disease due to severe acute respiratory syndrome coronavirus 2 (SARS-CoV-2) 07/14/2022 Past Medical History: Diagnosis Date Abnormal mammogram of left breast Benign essential HTN ([facility]) BMI 30.0-30.9,adult Chronic migraine without aura without status migrainosus, not intractable ([facility]) COVID Encounter for long-term current use of medication Encounter for well woman exam Insomnia, persistent Restless leg syndrome HISTORY PAST MEDICAL HISTORY SOCIAL HISTORY Past Medical History: Diagnosis Date Abnormal mammogram mammogram Abnormal mammogram of left breast Benign essential HTN ([facility]) BMI 30.0-30.9,adult Chronic migraine without aura without status migrainosus, not intractable ([facility] [facility] COVID Encounter for long-term current use of medication Encounter for well woman exam H/O bilateral salpingectomy H/O gastric bypass Hypoglycemia Insomnia, persistent Iron deficiency anemia due to dietary causes Lesion of cervix Menorrhagia Restless leg syndrome Ventral hernia without obstruction or gangrene Social History Tobacco Use Smoking status: Never Smokeless tobacco: Never Substance Use Topics Alcohol use: Not Currently Comment: Had a couple shots liquor over 6 months ago Drug use: Never FAMILY HISTORY Family History Problem Relation Name Age of Onset Heart disease Mother Jammie justo Hyperlipidemia Mother Jammie kemp Hypertension Mother Jammie justo Arthritis Mother Jammie kemp Diabetes Father T1 daughter ajay barber Hypertension Father T1 daughter ajay barber Heart disease Father T1 daughter ajay barber Hyperlipidemia Father T1 daughter ajay barber Asthma Father T1 daughter jaay barber Heart disease Other other family hx Diabetes Daughter Ajay barber Learning disabilities Daughter jAay barber Learning disabilities Brother Juan José Kemp III Mental illness Brother Juan José Kemp III Learning disabilities Brother Danilo Kemp Mental illness Brother Danilo Kemp SURGICAL HISTORY Past Surgical History: Procedure Laterality Date CARPAL TUNNEL RELEASE Right 11/04/2016 CARPAL TUNNEL RELEASE Left 11/18/2016 [facility] CHOLECYSTECTOMY 2012 GALLBLADDER SURGERY GASTRECTOMY LAPAROSCOPY DIAGNOSTIC / BIOPSY / ASPIRATION / LYSIS 02/2020 Diagnostic laparoscopy, bilateral salpingectomy, endometrial ablation WISDOM TOOTH EXTRACTION REVIEW OF SYSTEMS Review of Systems: Review of Systems All other systems reviewed and are negative. OBJECTIVE Objective: Physical Exam Constitutional: Appearance: Normal appearance. She is well-developed. Genitourinary: Vulva normal. Cardiovascular: Rate and Rhythm: Normal rate and regular rhythm. Pulmonary: Effort: Pulmonary effort is normal. Breath sounds: Normal breath sounds. Abdominal: General: Bowel sounds are normal. There is no distension. Palpations: Abdomen is soft. Tenderness: There is no abdominal tenderness. There is no guarding or rebound. Musculoskeletal: General: No swelling. Normal range of motion. Right lower leg: No edema. Left lower leg: No edema. Neurological: Mental Status: She is alert and oriented to person, place, and time. Skin: General: Skin is warm and dry. Psychiatric: Mood and Affect: Mood normal. Behavior: Behavior normal. Vitals and nursing note reviewed. Exam conducted with a repairer switchgear present. Vitals: Estimated body mass index is 35.67 kg/m as calculated from the following: Height as of 25: 5' 2 . Weight as of this encounter: 195 lb. BP: (!) 140/100 No LMP recorded. ASSESSMENT & PLAN ICD-10-CM 1. Well woman exam with routine gynecological exam Z01.419 THIN PREP TIS PAP AND HR HPV DNA 2. Encounter for screening mammogram for malignant neoplasm of breast Z12.31 Annual Exam: Patient presents today for an annual exam. Patient states she is doing well and has no complaints. Pap was obtained without difficulty. Pt c/o of missed cycle and weight gain. Pt states possible perimenopausal or PCOS symptoms. PCOS labs offered, pt agreeable. No orders of the defined types were placed in this encounter. Follow Up: Patient is to return in one year for annual unless needed otherwise. Documented by Claudia Johns MA on behalf of: [employer] ATTORNEY documented in this encounter [facility] 04-18-2024 History of Presen t illness Narrative Associated Problem(s): Primary insomnia Sleeping well with restoril and continue. Associated Problem(s): Migraine without aura and with status migrainosus, not intractable (CMS/HCC) Migraines improved with elavil and continue. Use relpax PRN. Associated Problem(s): MDD (major depressive disorder), recurrent episode, moderate (CMS/HCC) Occasional symptoms and increase lamictal. Associated Problem(s): Lumbar degenerative disc disease Pain stable and use zanaflex and tylenol for pain. Use ultram for severe pain. Associated Problem(s): Essential hypertension (CMS/HCC) BP normal and monitor PRN. Images from the original note were not included. Subjective Patient ID: Ayla Barber is a 48 y.o. female who presents for Follow-up (2 m). Follow up HTN, migraines, depression, insomnia, and back pain. Checking BP PRN and typically controlled. BP okay today. Taking medication daily and tolerating without side effects. Migraines improved with Elavil. BOWMAN 2-3 times a month and not as intense. Throbbing pain in entire head associated with photophobia, phonophobia and nausea. Using relpax and helps. Depression essentially unchanged. Still symptoms and at times down, sad, and no motivation. Still not want to do things or be around others. On lamictal and seems to help. Sleeping okay with restoril. Typically able to fall asleep and stay asleep. Pain stable. Pain in low back and across top hips. Pain in right hip. Pain worse with walking and standing. Medication helps keep pain tolerable. Review of Systems Respiratory: Negative for cough, [...] insomnia Sleeping well with restoril and continue. Migraine without aura and with status migrainosus, not intractable (CMS/HCC) Migraines improved with elavil and continue. Use relpax PRN. MDD (major depressive disorder), recurrent episode, moderate (CMS/HCC) Occasional symptoms and increase lamictal. Lumbar degenerative disc disease Pain stable and use zanaflex and tylenol for pain. Use ultram for severe pain. documented in this encounter [facility] 02-21-2024 History of Presen t illness Narrative Associated Problem(s): Primary insomnia Sleeping well with restoril and continue. Associated Problem(s): Migraine without aura and with status migrainosus, not intractable (CMS/HCC) BOWMAN worse and start elavil to prevent BOWMAN. Use fioricet PRN. Associated Problem(s): MDD (major depressive disorder), recurrent episode, moderate (CMS/HCC) Occasional symptoms and increase lamictal. Associated Problem(s): Lumbar degenerative disc disease Pain stable and use zanaflex and tylenol for pain. Use ultram for severe pain. Associated Problem(s): Essential hypertension (CMS/HCC) BP normal and monitor PRN. Associated Problem(s): Class 2 severe obesity due to excess calories with serious comorbidity and body mass index (BMI) of 37.0 to 37.9 in adult (CMS/HCC) Weight loss indicated. Images from the original note were not included. Subjective Patient ID: Ayla Barber is a 48 y.o. female who presents for Follow-up (2 m f/u) and Headache (Migraine since 01/29/24). Follow up HTN, migraines, depression, insomnia, and back pain. Checking BP PRN and typically controlled. BP controlled today. Taking medication daily and tolerating without side effects. Migraines worse. Constant, daily BOWMAN for over a month. Throbbing pain in entire head associated with photophobia, phonophobia and nausea. Some times severe and hard to function. Using relpax and not helping. Depression stable. Still symptoms and at times down, sad, and no motivation. Still not want to do things or be around others. On lamictal and seems to help. Sleeping okay with restoril. Typically able to fall asleep and stay asleep. Pain stable. Pain in low back and across top hips. Pain in right hip. Pain worse with walking and standing. Medication helps keep pain tolerable. Review of Systems Respiratory: Negative for cough, [...] insomnia Sleeping well with restoril and continue. Migraine without aura and with status migrainosus, not intractable (CMS/HCC) BOWMAN worse and start elavil to prevent BOWMAN. Use fioricet PRN. Relevant Medications amitriptyline (Elavil) 25 MG tablet Class 2 severe obesity due to excess calories with serious comorbidity and body mass index (BMI) of 37.0 to 37.9 in adult (CMS/HCC) Weight loss indicated. MDD (major depressive disorder), recurrent episode, moderate (CMS/HCC) Occasional symptoms and increase lamictal. Lumbar degenerative disc disease Pain stable and use zanaflex and tylenol for pain. Use ultram for severe pain. documented in this encounter [facility] 11-02-2023 History of Presen t illness Narrative [...] to avoid SSRIs. documented in this encounter [facility] 10-05-2023 History of Presen t illness Narrative [...] in this encounter [facility] Evaluation note Diagnosis Breast cancer screening by [...] maintaining sleep [facility] Diagnosis Breast cancer screening by mammogram- Primary [...] disease without esophagitis [facility] Diagnosis Essential hypertension (CMS/HCC)- Primary Unspecified essential hypertension Lumbar degenerative disc disease Primary osteoarthritis of right hip Primary insomnia Persistent disorder of initiating or maintaining sleep MDD (major depressive disorder), recurrent episode, moderate (CMS/HCC) Acute angle-closure glaucoma, unspecified laterality documented in this encounter [facility]* Diagnosis Essential hypertension (CMS/HCC)- Primary Unspecified essential hypertension MDD (major depressive disorder), recurrent episode, moderate (HCC) (CMS/HCC) Obesity (BMI 30-39.9) Right hip pain Pain in joint, pelvic region and thigh Chronic bilateral low back pain with right-sided sciatica Right knee pain, unspecified chronicity Gastro-esophageal reflux disease without esophagitis Body mass index (BMI) 36.0-36.9, adult [facility] Diagnosis Breast cancer screening by mammogram- Primary [...] adult (CMS/HCC) Gastro-esophageal reflux disease without esophagitis Essential hypertension (CMS/HCC)- Primary Unspecified essential hypertension Migraine without aura and with status migrainosus, not intractable (CMS/HCC) MDD (major depressive disorder), recurrent episode, moderate (CMS/HCC) Primary insomnia Persistent disorder of initiating or maintaining sleep Degeneration of intervertebral disc of lumbar region with discogenic back pain and lower extremity pain Class 2 severe obesity due to excess calories with serious comorbidity and body mass index (BMI) of 37.0 to 37.9 in adult (CMS/HCC) documented [facility] this encounter [facility]* Diagnosis Breast cancer screening by mammogram- Primary [...] adult (CMS/HCC) Gastro-esophageal reflux disease without esophagitis Essential hypertension (CMS/HCC)- Primary Unspecified essential hypertension Migraine without aura and with status migrainosus, not intractable (CMS/HCC) MDD (major depressive disorder), recurrent episode, moderate (CMS/HCC) Primary insomnia Persistent disorder of initiating or maintaining sleep Degeneration of intervertebral disc of lumbar region with discogenic back pain and lower extremity pain Class 2 severe obesity due to excess calories with serious comorbidity and body mass index (BMI) of 37.0 to 37.9 in adult (CMS/HCC) Primary insomnia Persistent disorder of initiating or maintaining sleep documented [facility] encounter [facility] Diagnosis Breast cancer screening by mammogram- Primary [...] adult (CMS/HCC) Gastro-esophageal reflux disease without esophagitis Essential hypertension (CMS/HCC)- Primary Unspecified essential hypertension Migraine without aura and with status migrainosus, not intractable (CMS/HCC) MDD (major depressive disorder), recurrent episode, moderate (CMS/HCC) Primary insomnia Persistent disorder of initiating or maintaining sleep Degeneration of intervertebral disc of lumbar region with discogenic back pain and lower extremity pain Class 2 severe obesity due to excess calories with serious comorbidity and body mass index (BMI) of 37.0 to 37.9 in adult (CMS/HCC) Essential hypertension (CMS/HCC)- Primary Unspecified essential hypertension Migraine without aura and with status migrainosus, not intractable (CMS/HCC) MDD (major depressive disorder), recurrent episode, moderate (CMS/HCC) Primary insomnia Persistent disorder of initiating or maintaining sleep Degeneration of intervertebral disc of lumbar region with discogenic back pain and lower extremity pain documented in this encounter [facility] Diagnosis Breast cancer screening by mammogram- Primary [...] adult (CMS/HCC) Gastro-esophageal reflux disease without esophagitis Essential hypertension (CMS/HCC)- Primary Unspecified essential hypertension Migraine without aura and with status migrainosus, not intractable (CMS/HCC) MDD (major depressive disorder), recurrent episode, moderate (CMS/HCC) Primary insomnia Persistent disorder of initiating or maintaining sleep Degeneration of intervertebral disc of lumbar region with discogenic back pain and lower extremity pain Class 2 severe obesity due to excess calories with serious comorbidity and body mass index (BMI) of 37.0 to 37.9 in adult (CMS/HCC) Essential hypertension (CMS/HCC)- Primary Unspecified essential hypertension Migraine without aura and with status migrainosus, not intractable (CMS/HCC) MDD (major depressive disorder), recurrent episode, moderate (CMS/HCC) Primary insomnia Persistent disorder of initiating or maintaining sleep Degeneration of intervertebral disc of lumbar region with discogenic back pain and lower extremity pain Well woman exam with routine gynecological exam Routine gynecological examination Encounter for screening mammogram for malignant neoplasm of breast PCOS (polycystic ovarian syndrome) Polycystic ovaries [facility] N[facility]* Edy Hardy MD - 12/20/2023 2:30 PM EST Images from the original note were not [...] serious comorbidity and body mass index (BMI) of37.0 to 37.9 in adult (CMS/HCC) Discussed proper [...] for pain. Use ultram for severe pain. * Edy Hardy MD - 12/20/2023 1:41 PM ESTAssociated Problem(s): Class 2 severe obesity due to excess calories with serious comorbidity and body mass index (BMI) of 37.0 to 37.9 in adult (CMS/HCC) Discussed proper diet and regular aerobic exercise. Recommend Weight Watchers and need to limit calories and smaller portions. Need to increase activity and regular aerobic exercise several days a week for 30 minutes at a time. * Edy Hardy MD - 12/20/2023 1:40 PM ESTAssociated Problem(s): MDD (major depressive disorder), recurrent episode, moderate (CMS/HCC) Occasional symptoms and increase lamictal. * Edy Hardy MD - 12/20/2023 1:40 PM ESTAssociated Problem(s): PCOS (polycystic ovarian syndrome) Problems with weight and start metformin. * Edy Hardy MD - 12/20/2023 1:40 PM ESTAssociated Problem(s): Primary insomnia Sleeping well with restoril and continue. * Edy Hardy MD - 12/20/2023 1:40 PM ESTAssociated Problem(s): Primary osteoarthritis of right hip Pain stable and use zanaflex and tylenol for pain. Use ultram for severe pain. * Edy Hardy MD - 12/20/2023 1:40 PM ESTAssociated Problem(s): Lumbar degenerative disc disease Pain stable and use zanaflex and tylenol for pain. Use ultram for severe pain. * Edy Hardy MD - 12/20/2023 1:39 PM ESTAssociated Problem(s): Essential hypertension (CMS/HCC) BP normal and monitor PRN. [facility] Purpose Family History No Family History Records FoundNo Family History Records Found Advance Directives No Advanced Directives Records FoundNo Advanced Directives Records Found Reason for Referral Specialty Diagnoses / Procedures Referred By Contac t Referred To Contact Diagnoses Obesity (BMI 30-39.9) Edy Hardy MD [address] [place] [address] Referral ID Status Reason Start Date Expiration Date V isits Requested Visits Authorized [id number] Pending Review 1 1 Additional Source Comments INFORMATION SOURCE (unrecogn ized section and content) DATE CREATED AUTHOR 05/10/2022 [facility] DATE CREATED AUTHOR AUTHOR'S ORGANIZ ATION 05/24/2024 [facility] Reason for Visit (unrecogniz ed section and content) Reason Comments Med Refill Reason Comments Follow-up 1 mWeight/pcos Reason Comments Follow-up 1m Back Pain Lower back hip and k nee pain Reason Comments Follow-up 2m f/u Hip Pain Starts at hip runs d own to foot Reason Comments Follow-up 2 m f/u Headache Migraine since 01/28 Reason Comments Follow-up 2 m Reason Comments Well Women Visit Care Teams (unrecognized sec tion and content) Criminal Lawyer Relationship Specialty Start Date End Date Edy Hardy MD [address] [place] [address] PCP - [employer] 02/15/23 Edy Hardy MD [address] [place] [address] PCP - General Family Medicine 5/6/24 Criminal Lawyer Relationship Specialty Start Date End Date Edy Hardy MD [address] [place] [address] PCP - [employer] 02/15/23 Edy Hardy MD [address] [place] [address] PCP - General Family Medicine 06/21/23 Criminal Lawyer Relationship Specialty Start Date End Date Edy Hardy MD [address] [place] [address] PCP - [employer] 02/15/23 Edy Hardy MD [address] [place] [address] PCP - General Family Medicine 06/21/23 Criminal Lawyer Relationship Specialty Start Date End Date Edy Hardy MD [address] [place] [address] PCP - [employer] 02/15/23 Edy Hardy MD [address] [place] [address] PCP - General Family Medicine 06/21/23 Criminal Lawyer Relationship Specialty Start Date End Date Edy Hardy MD [address] [place] [address] PCP - [employer] 02/15/23 Edy Hardy MD [address] [place] [address] PCP - General Family Medicine 06/21/23 Criminal Lawyer Relationship Specialty Start Date End Date Edy Hardy MD [address] [place] [address] PCP - [employer] 02/15/23 Edy Hardy MD [address] [place] [address] PCP - General Family Medicine 06/21/23 Criminal Lawyer Relationship Specialty Start Date End Date Edy Hardy MD [address] [place] [address] PCP - [employer] 02/15/23 Edy Hardy MD [address] [place] [address] PCP - General Family Medicine 06/21/23 Criminal Lawyer Relationship Specialty Start Date End Date Edy Hardy MD [address] [place] [address] PCP - [employer] 02/15/23 Edy Hardy MD [address] [place] [address] PCP - General Family Medicine 06/21/23 Criminal Lawyer Relationship Specialty Start Date End Date Edy Hardy MD [address] [place] [address] PCP - [employer] 02/15/23 Edy Hardy MD [address] [place] [address] PCP - General Family Medicine 06/21/23 Criminal Lawyer Relationship Specialty Start Date End Date Edy Hardy MD [address] [place] [address] PCP - [employer] 02/15/23 Edy Hardy MD [address] [place] [address] PCP - General Family Medicine 06/21/23 Criminal Lawyer Relationship Specialty Start Date End Date Edy Hardy MD [address] [place] [address] PCP - [employer] 02/15/23 Edy Hardy MD [address] [place] [address] PCP - General Family Medicine 06/21/23 Criminal Lawyer Relationship Specialty Start Date End Date Edy Hardy MD [address] [place] [address] PCP - [employer] 02/15/23 Edy Hardy MD [address] [place] [address] PCP - General Family Medicine 06/21/23 Criminal Lawyer Relationship Specialty Start Date End Date Edy Hardy MD [address] [place] [address] PCP - [employer] 02/15/23 Edy Hardy MD [address] [place] [address] [facility] 06/21/23 Criminal Lawyer Relationship Specialty Start Date End Date Edy Hardy MD [address] [place] [address] [facility] 02/15/23 Edy Hardy MD [address] [place] [address] [facility] 06/21/23 Criminal Lawyer Relationship Specialty Start Date End Date Edy Hardy MD [address] [place] [address] [facility] 02/15/23 Edy Hardy MD [address] [place] [address] [facility] 06/21/23 FOR RECORDS PERTAINING TO PATIENTS WHO [...] BE BASED ON THE PRIMARY CLINICAL RECORDS. [employer] [facility]. provides no warranty or guarantee of the accuracy or completeness of information in this document.
[2024-05-26 16:54] LABS: Basophils Percent Auto 0.6 % (0.2-2.0); Eosinophils Absolute Auto 0.1 10^3/uL (0.0-0.7); Eosinophils Percent Auto 2.6 % (0.9-7.0); Hemoglobin 13.5 g/dL (12.0-16.0); Lymphocytes Absolute Auto 1.8 10^3/uL (1.2-3.8); Mean Corpuscular HGB Conc 32.9 g/dL (29.9-35.2); Mean Corpuscular Hemoglobin 29.1 pg (26.7-34.0); Mean Corpuscular Volume 88.4 fL (81.0-99.0); Mean Platelet Volume 10.7 fL (9.5-13.5); Monocytes Absolute Auto 0.5 10^3/uL (0.3-0.8); Monocytes Percent Auto 9.2 % (1.7-12.0); Neutrophils Absolute Auto 2.8 10^3/uL (1.4-6.5); Neutrophils Percent Auto 53.6 % (43.0-75.0); Platelet Count 222 10^3/uL (150-450); Red Blood Count 4.64 10^6/uL (4.20-5.40); Red Cell Distribution Width 12.6 % (11.0-15.0); White Blood Count 5.3 10^3/uL (4.0-11.0)
[2024-05-26 17:23] LABS: Estimated Average Glucose 88 mg/dL; Glycohemoglobin A1C 4.7 % (4.5-6.2)
[2024-05-26 17:30] LABS: Free T4 1.13 ng/dL (0.76-1.46)
[2024-05-26 17:32] LABS: Thyroid Stimulating Hormone 2.333 uIU/mL (0.358-3.740)
[2024-05-26 17:34] LABS: HCG Quantitative <1 mIU/mL
[2024-05-28 09:08] LABS: FSH 7.9 mIU/mL (.); Luteinizing Hormone(LH) 11.7 mIU/mL (.)
== END 2024-05-26 16:18 | disposition home or self-care (01) ==
LOC: LAB 16:19
PROVIDERS: PCP Family Medicine; Visit Provider Nurse Practitioner Family
DX: E28.2 Polycystic ovarian syndrome (principal)
CPT/HCPCS: 36415; 82626; 82627; 83001; 83002; 83036; 84439; 84443; 84702; 85025

== ENCOUNTER 2024-08-24 13:54 | Outpatient (OUT) | payer BC, SELFPAY ==
--- OUTSIDE RECORDS SUMMARY | 2018-08-17 10:15 | XMS_ITS | Continuity of Care Document ---
Author [facility] Address [address] [place] [address] [place] [address] Phone Care Team Providers Care Nurses Educator Name Role Phone Gloria Schuster CNP Unavailable Unavailable Procedures Procedure Date OFFICE/OUTPATIENT VISIT, EST OFFICE/OUTPATIENT VISIT, EST OFFICE/OUTPATIENT VISIT, EST POSTOP FOLLOW-UP VISIT POSTOP FOLLOW-UP VISIT Sleeve Gastrectomy LAP SLEEVE GASTRECTOMY OFFICE/OUTPATIENT VISIT, EST OFFICE CONSULTATION Advance Directives Directive Yes / No Effective Date File Name No Information Encounters Encounter Description Practice Location Reason(s) For Visit Diagnoses Date Provider Providers Copied on Encounter OFFICE/OUTPATI ENT VISIT, [facility], [address] [place] [address], [id number], tel:[phone] [facility] No Information 9 Landen Castro. [address], [id number], [place]. tel:[phone] Referring Provider: Gloria Schuster, [address] [place] [address], [address] . tel:[phone] OFFICE/OUTPATI ENT VISIT, [facility], [address] [place] [address], [id number], tel:[phone] [facility] No Information No Information OFFICE/OUTPATI ENT VISIT, [facility], [address] [place] [address] [place], [place], [id number], [place] tel:[phone] [facility] No Information 6 No Information [facility], [address] [place] [address] [address], [place], [id number], [place] tel:[phone] [facility] No Information 6 No Information [place] [facility] [employer] [facility] the [facility], [address] [place] [address] [address], [place], [id number], [place] tel:[phone] [facility] No Information 6 No Information [facility] includes the [facility], [address] [place] [address] B, [place], [id number], [place] tel:[phone] [facility] No Information 6 No Information [place] [facility], [address] [place] [address] [address], [place], [place], [id number], [place] tel:[phone] [facility] No Information 6 Roque Boyce. [address] [place] [address] Suite [facility], [place], [place], [id number], [place]. tel:[phone] Referring Provider: Austen Cordoba, [address] [place] [address], [place], [address] . tel:[phone] OFFICE/OUTPATI ENT VISIT, [facility] the [facility], [address] [place] [address], [place], [place], [id number], [place] tel:[phone] [facility] No Information 6 Roque Boyce. [address] [place] [address] [address], [place], [place], [id number], [place]. tel:[phone] Referring Provider: Austen Cordoba, [address] [place] [address], [place], [address] . tel:[phone] OFFICE CONSULTATION [place] [facility], [address] [place] [address] B, [place], [id number], [place] tel:[phone] [facility] No Information 5 Roque Boyce. [address] [place] [address] 222, [place], [id number], . tel:[phone] Referring Provider: Austen Cordoba, [address] [facility] [address], [place], [address] . tel:[phone] Family History Family Member Type Diagnosis Age At Onset No Information Payers Payer name Insurance type Covered constitution party ID Authorradha valencia(s) Jimmy [id number] Social History Type Description Quantity Date Captured Comments Sex Female Smoking Status No Information Chief Complaint And Reason For Visit No Information Reason For Referral Reason For Referral No Information History Of Present Illness Encounter Date Complaint History Of Prese nt Illness No Information Functional Status Date Functional Assessmen t No Information Instructions Date Instruction Additional Infor mation No Information Assessments Type Assessment Date No Information Patient Care Teams Name Effective Dates (start - stop) Status Members No Information
--- OUTSIDE RECORDS SUMMARY | 2024-08-24 13:56 | XMS_ITS | Encounter Summary ---
Author Organization [facility] Address [address] [place] [address] Care Team Providers Care Adobe Developer Name Role Phone Ermias Hardy MD Unavailable Ermias Hardy MD Primary Care Provider [phone] Encounter Details Date Type Department Care Team (Late st Contact Info) Description 10/06/2023 Clinisync Result Encounter [facility] External Department Unsolicited Ermias Hardy MD [address] [place] [address] Social History Tobacco Use Types Packs/Day Years Used Date Smoking Tobacco: Never Smokeless Tobacco: Never Alcohol Use Standard Drinks/Week Comments Not Currently 0 (1 standard drink = 0.6 oz pure alcohol) Had a couple shots liquor over 6 months ago Social Connection and Isolation Panel [NHANES] A nswer Date Recorded In a typical week, how many times do you talk on the phone with family, friends, or neighbors? Never 06/14/2023 How often do you get togethe r with friends or relatives? Never 06/14/2023 How often do you attend cheondoism or lutheran serv ices? Patient declined 06/14/2023 Do you belong to any clubs o r organizations such as cheondoism groups, unions, fraternal or athletic groups, or school groups? Patient declined 06/14/2023 How often do you attend meet ings of the clubs or organizations you belong to? Patient declined 06/14/2023 Are you , , di vorced, , never , or living with a partner? 06/14/2023 AUDIT-C Answer Date Recorded Q1: How often do you have a drink containing alc ohol? Monthly or less 06/14/2023 Q2: How many drinks containi ng alcohol do you have on a typical day when you are drinking? 1 or 2 06/14/2023 Q3: How often do you have si x or more drinks on one occasion? Never 06/14/2023 Overall Financial Resource Strain (CARDIA) Answe r Date Recorded How hard is it for you to pa y for the very basics like food, housing, medical care, and heating? Not hard at all 06/14/2023 [facility] [place] of Occupat ional Health - Occupational Stress Questionnaire Answer Date Recorded Do you feel stress - tense, restless, nervous, or anxious, or unable to sleep at night because your mind is troubled all the time - these days? Very much 06/14/2023 Exercise Vital Sign Answer Date Recorde d On average, how many days pe r week do you engage in moderate to strenuous exercise (like a brisk walk)? 1 day 06/14/2023 On average, how many minutes do you engage in exercise at this level? 10 min 06/14/2023 Hunger Vital Sign Answer Date Recorded Within the past 12 months, y ou worried that your food would run out before you got the money to buy more. Never true 06/14/19 24 Within the past 12 months, t he food you bought just didn't last and you didn't have money to get more. Never true 06/14/2023 PRAPARE - Transportation Answer Date Re corded In the past 12 months, has l ack of transportation kept you from medical appointments or from getting medications? No 05/17 In the past 12 months, has l ack of transportation kept you from meetings, work, or from getting things needed for daily living? No 06/14/2023 Housing Stability Vital Sign Answer Yoseph e Recorded In the last 12 months, was t here a time when you were not able to pay the mortgage or rent on time? No 06/14/2023 In the last 12 months, how many places have you lived? 1 06/14/2023 In the last 12 months, was t here a time when you did not have a steady place to sleep or slept in a [place] (including now)? No 06/14/2023 Comments Unknown Sex and Gender Information Value Date Recorded Sex Assigned at Female 07/08/2022 1:01 PM EDT Legal Sex Female 7:16 PM EDT Gender Identity Female 07/08/2022 1:01 PM EDT Sexual Orientation Choose not to disclose 2022 1:01 PM EDT documented as of this encounter Plan of Treatment Upcoming Encounters Date Type Department Care Team (Late st Contact Info) Description 10/19/2024 2:30 PM EDT Office Visit [facility] [address] [place] [address] Ermias Hardy MD [address] [place] [address] 05/24/2025 3:00 PM EDT Office Visit [facility] OB [address] [facility] [place] [address] Mariana Shell PA [address] [facility] [place] [address] documented as of this encounter Procedures Procedure Name Priority Date/Time Associated Diagnosis Comments XR KNEE 3 VIEWS RIGHT 10/06/2023 10:43 AM EDT documented in this encounter Results * XR knee 3 views right (10/06/2023 10:43 AM EDT) Anatomical Region Laterality Modality Lower Extremities, Knee Right [facility] 10/06/2023 10:4 3 AM EDT Narrative 10/06/2023 10:45 AM EDT The [address] [address] XRay Report Signed Patient: AYLA BARBER MR#: [id number] : 1975 Acct:[id number] Age/Sex: 48 / F ADM Date: 10/05/23 Loc: RAD Attending Dr: Ermias Hardy M.D. Ordering Physician: Ermias Hardy M.D. Date of Service: 10/05/23 Procedure(s): XR knee RT 3V Accession Number(s): [id number] cc: Ermias Hardy M.D. The [place] [id number] Patient Name: AYLA BARBER MRN: [id number] date: 1975 Sex: F Assigned Patient Location: RAD Current Patient Location: Accession/Order Number: [id number] Exam Date: 10/05/2023 16:05 Report Date: 10/06/2023 10:43 At the request of: ERMIAS HARDY Procedure: XR knee RT 3V PROCEDURE: XR knee RT 3V HISTORY: Right Knee Pain COMPARISON: None. FINDINGS: BONES:No fracture, acute abnormality, or significant arthropathy. SOFT TISSUES:No visible soft tissue swelling. EFFUSION:None visible. OTHER: Negative. XR/XR knee RT 3V IMPRESSION: 1. No acute bone abnormality or significant degenerative changes. Electronically authenticated by: ADARSH JIMENEZ Date: 10/06/2023 10:43 Dictated By: Adarsh Jimenez M.D. Signed By: 10/06/23 1045 DD/ 1043 TD/TT: Plate Maker Zinc: Procedure Note Radiology, Radiologist, MD - 10/06/2023 [place] [address] XRay Report Signed Patient: AYLA BARBER AMR#: [id number] : 1975Acct:[id number] Age/Sex: 48 / FADM Date: 10/05/23 Loc: RAD Attending Dr: Ermias Hardy M.D. Ordering Physician: Ermias Hardy M.D. Date of Service: 10/05/23 Procedure(s): XR knee RT 3V Accession Number(s): [id number] cc: Ermias Hardy M.D. The [address] [address] Patient Name: AYLA BARBER MRN: [id number] date: 1975 Sex: F Assigned Patient Location: [facility] Current Patient Location: Accession/Order Number: [id number] Exam Date: 10/05/2023 16:05 Report Date: 10/06/2023 10:43 At the request of: ERMIAS HARDY Procedure: XR knee RT 3V PROCEDURE: XR knee RT 3V HISTORY: Right Knee Pain COMPARISON: None. FINDINGS: BONES:No fracture, acute abnormality, or significant arthropathy. SOFT TISSUES:No visible soft tissue swelling. EFFUSION:None visible. OTHER: Negative. XR/XR knee RT 3V IMPRESSION: 1. No acute bone abnormality or significant degenerative changes. Electronically authenticated by: ADARSH JIMENEZ Date: 10/06/2023 10:43 Dictated By: Adarsh Jimenez M.D. Signed By:10/06/23 1045 DD/ 1043 TD/TT: Plate Maker Zinc: Ermias Hardy MD IMG XR PROCEDURES Final Result documented in this encounter Visit Diagnoses Not on filedocumented in this encounter Care Teams Adobe Developer Relationship Specialty Start Date End Date Ermias Hardy MD [address] [place] [address] PCP - [place] [employer] 02/15/23 Ermias Hardy MD [address] [place] [address] PCP - General Family Medicine 06/21/23 documented as of this encounter
--- OUTSIDE RECORDS SUMMARY | 2024-08-24 13:56 | XMS_ITS | Encounter Summary ---
Author Organization [facility] Address [address] [place] [address] Care Team Providers Care Paper Sealer Name Role Phone Edy Bautista MD Unavailable Edy Bautista MD Primary Care Provider [phone] Encounter Details Date Type Department Care Team (Late st Contact Info) Description 08/23/2023 Clinisync Result Encounter [facility] External Department Unsolicited Ankit Singleton, DO [address] [facility] [place] [address] Social History Tobacco Use Types Packs/Day Years [...] Never 06/14/2023 How often do you attend presybeterian or jehovah's witness serv ices? Patient declined 06/14/2023 Do you belong to any clubs o r organizations such as presybeterian groups, unions, fraternal or athletic groups, or [...] and heating? Not hard at all 06/14/2023 [facility] of Occupat ional Health - Occupational Stress [...] place to sleep or slept in a [facility] (including now)? No 06/14/2023 Comments Unknown Sex [...] [facility] [address] [place] [address] Edy Bautista MD [address] [place] [address] 05/24/2025 3:00 PM EDT Office Visit [facility] OB [address] [facility] [place] [address] Mariana Shell PA [address] [facility] [address] [place], [place] [phone] documented as of this encounter Procedures Procedure Name Priority Date/Time Associated Diagnosis Comments MM TOMOSYNTHESIS SCREENING BI 08/23/2023 3:18 PM EDT documented in this encounter Results * MM TOMOSYNTHESIS SCREENING BI (08/23/2023 3:18 PM EDT) Anatomical Region Laterality Modality Other 08/23/2023 3:18 PM EDT Narrative 08/23/2023 3:19 PM EDT The [address] [address] Mammography Report Signed Patient: AYLA BARBER MR#: [id number] : 1975 Acct:[id number] Age/Sex: 48 / F ADM Date: 08/23/23 Loc: MAMMO Attending Dr: Ankit Singleton D.O. Ordering Physician: Ankit Singleton D.O. Results: Date of Service: 08/23/23 Follow Up: Procedure(s): MM tomosynthesis screening BI Accession Number(s): [id number] cc: Ankit Singleton D.O.; Edy Bautista M.D. Patient Name: AYLA BARBER MR#: [id number] : 1975 Exam Date: 08/23/2023 Ordering Doctor: DR Ankit Singleton . RADIOLOGY REPORT PROCEDURE: MM TOMOSYNTHESIS SCREENING BI COMPARISON: MG MAMM SCREEN 3D ANDRY CAD, 05/07/2022. MG MAMM SCREEN 3D ANDRY CAD, 04/24/2021. INDICATIONS: Screening Calculator Name NCI Breast Cancer Risk Assessment Tool 5 Year Breast Cancer Risk 1.20% Lifetime Breast Cancer Risk 12.70% Personal Breast Cancer No Personal Ovarian Cancer No Treatments None Family Cancers None LOCATION: The [facility] BREAST COMPOSITION: There are scattered areas of fibroglandular density. FINDINGS: DIAGNOSTIC CATEGORY 1--NEGATIVE. NO CHANGE FROM COMPARISON ASSESSMENT. Scattered benign-appearing lymph nodes are present. RIGHT BREAST: No significant suspicious finding. LEFT BREAST: No significant suspicious finding. RECOMMENDATIONS: ROUTINE MAMMOGRAM AND CLINICAL EVALUATION IN 12 MONTHS. PLEASE NOTE: A NORMAL MAMMOGRAM DOES NOT EXCLUDE THE POSSIBILITY OF BREAST CANCER. A CLINICALLY SUSPICIOUS PALPABLE LUMP SHOULD BE BIOPSIED. Dictated by: Dewayne Aponte MD on 08/23/2023 at 15:17 Approved by: Dewayne Aponte MD on 08/23/2023 at 15:18 Dictated By: Dewayne Aponte M.D. Signed By: 08/23/23 1519 DD/ 1518 TD/TT: Ambulatory Care Coordinator: Procedure Note Radiology, Radiologist, MD - 08/23/2023 [place] [address] Mammography Report Signed Patient: AYLA BARBER AMR#: [id number] : 1975Acct:[id number] Age/Sex: 48 / FADM Date: 08/23/23 Loc: MAMMO Attending Dr: Ankit Singleton D.O. Ordering Physician: Ankit Singleton D.O.Results: Date of Service: 08/23/23Follow Up: Procedure(s): MM tomosynthesis screening BI Accession Number(s): [id number] cc: Ankit iSngleton D.O.; Edy Bautista M.D. Patient Name: AYLA BARBER MR#: [id number] : 1975 Exam Date: 08/23/2023 Ordering Doctor: DR Ankit Singleton . RADIOLOGY REPORT PROCEDURE: MM TOMOSYNTHESIS SCREENING BI COMPARISON: MG MAMM SCREEN 3D ANDRY CAD, 05/07/2022. MG MAMM SCREEN 3DBIL CAD, 04/24/2021. INDICATIONS: Screening Calculator Name NCI Breast Cancer Risk Assessment Tool 5 Year Breast Cancer Risk 1.20% Lifetime Breast Cancer Risk 12.70% Personal Breast Cancer No Personal Ovarian Cancer No Treatments None Family Cancers None LOCATION: The [facility] BREAST COMPOSITION: There are scattered areas of fibroglandulardensity. FINDINGS: DIAGNOSTIC CATEGORY 1--NEGATIVE. NO CHANGE FROM COMPARISON ASSESSMENT. Scattered benign-appearing lymph nodes are present. RIGHT BREAST: No significant suspicious finding. LEFT BREAST: No significant suspicious finding. RECOMMENDATIONS: ROUTINE MAMMOGRAM AND CLINICAL EVALUATION IN 12 MONTHS. PLEASE NOTE: A NORMAL MAMMOGRAM DOES NOT EXCLUDE THE POSSIBILITY OFBREAST CANCER. A CLINICALLY SUSPICIOUS PALPABLE LUMP SHOULD BE BIOPSIED. Dictated by: Dewayne Aponte MD on 08/23/2023 at 15:17 Approved by: Dewayne Aponte MD on 08/23/2023 at 15:18 Dictated By: Dewayne Aponte M.D. Signed By:08/23/23 1519 DD/ 1518 TD/TT: Ambulatory Care Coordinator: Ankit Singleton DO [facility] Final Result documented in this encounter Visit Diagnoses Not on filedocumented in this encounter Care Teams Paper Sealer Relationship Specialty Start Date End Date Edy Bautista MD [address] [place] [address] PCP - [place] [employer] 02/15/23 Edy Bautista MD [address] [place] [address] PCP - General Family Medicine 06/21/23 documented as of this encounter
--- OUTSIDE RECORDS SUMMARY | 2024-08-24 13:56 | XMS_ITS | Encounter Summary ---
Author Organization [facility] Address [address] [place] [address] Care Team Providers Care Rate Clerk Name Role Phone Edy Bautista MD Unavailable Edy Bautista MD Primary Care Provider [phone] Encounter Details Date Type Department Care Team (Late st Contact Info) Description 06/01/2024 Orders Only [facility] OB [address] [employer] [place] [address] Elise Subramanian LPN [address] [place] [address] Social History Tobacco Use Types [...] Never 06/14/2023 How often do you attend denominational or gnosticism serv ices? Patient declined 06/14/2023 Do you belong to any clubs o r organizations such as denominational groups, unions, fraternal or athletic groups, or [...] and heating? Not hard at all 06/14/2023 [facility] [place] of Occupat ional Health - Occupational Stress [...] place to sleep or slept in a penitentiary (including now)? No 06/14/2023 Comments Unknown Sex [...] [facility] [address] [place] [address] Edy Bautista MD [address] [place] [address] 05/24/2025 3:00 PM EDT Office Visit [facility] OB [address] [facility] [place] [address] Mariana Shell PA [address] [facility] [address] [place], [place] [address] documented as of this encounter Procedures Procedure Name Priority Date/Time Associated Diagnosis Comments PAP SMEAR Routine 05/23/2024 12:00 AM EDT documented in this encounter Results * Pap Smear (05/23/2024 12:00 AM EDT) Swab Cervical swab / Unknown Dipti [facility] CYTOLOGY ORDERABLES Final Result EXTERNAL LAB documented in this encounter Visit Diagnoses Not on filedocumented in this encounter Care Teams Rate Clerk Relationship Specialty Start Date End Date Edy Bautista MD [address] [place] [address] PCP - [place] [employer] 02/15/23 Edy Bautista MD [address] [place] [address] PCP - General Family Medicine 06/21/23 documented as of this encounter
--- OUTSIDE RECORDS SUMMARY | 2024-08-24 13:56 | XMS_ITS | Encounter Summary ---
Author Organization [facility] Address [address] [place] [address] Care Team Providers Care Sugar Grinder Name Role Phone Ermias Hardy MD Unavailable Ermias Hardy MD Primary Care Provider [phone] Encounter Details Date Type Department Care Team (Late st Contact Info) Description 10/06/2023 Clinisync Result Encounter [facility] External Department Unsolicited Ermias Hardy MD [address] [place] [address] Social History Tobacco Use Types Packs/Day Years [...] Never 06/14/2023 How often do you attend latter day or oriental orthodox serv ices? Patient declined 06/14/2023 Do you belong to any clubs o r organizations such as latter day groups, unions, fraternal or athletic groups, or [...] and heating? Not hard at all 06/14/2023 [facility] [place] of Occupat ional Health - Occupational Stress [...] place to sleep or slept in a fci (including now)? No 06/14/2023 Comments Unknown Sex [...] [facility] [address] [place] [address] Ermias Hardy MD [address] [place] [address] 05/24/2025 3:00 PM EDT Office Visit [facility] B[facility] OB [address] [facility] [place] [address] Mariana Shell PA [address] [facility] [place] [address] documented as of this encounter Procedures Procedure Name Priority Date/Time Associated Diagnosis Comments XR HIP 2 OR 3 VW RIGHT 10/06/2023 10:45 AM EDT documented in this encounter Results * XR hip right 2 or 3 views (10/06/2023 10:45 AM EDT) Anatomical Region Laterality Modality Lower Extremities, Hip Right Radiograp hic Imaging 10/06/2023 10:4 5 AM EDT Narrative 10/06/2023 10:48 AM EDT The [address] [address] XRay Report Signed Patient: AYLA BARBER MR#: [id number] : 1975 Acct:[id number] Age/Sex: 48 / F ADM Date: 10/05/23 Loc: RAD Attending Dr: Ermias Hardy M.D. Ordering Physician: Ermias Hardy M.D. Date of Service: 10/05/23 Procedure(s): XR hip RT min 2V Accession Number(s): [id number] cc: Ermias Hardy M.D. The [address] [address] Patient Name: AYLA BARBER MRN: [id number] date: 1975 Sex: F Assigned Patient Location: RAD Current Patient Location: RAD Accession/Order Number: [id number] Exam Date: 10/05/2023 16:05 Report Date: 10/06/2023 10:45 At the request of: ERMIAS HARDY Procedure: XR hip RT min 2V PROCEDURE: XR hip RT min 2V HISTORY: Right Hip Pain COMPARISON: None. FINDINGS: BONES:Tiny calcification along superior rim of acetabulum. The humeral head remains seated within the acetabulum with normal articular surface contour. No significant joint space narrowing. SOFT TISSUES:No visible soft tissue swelling. EFFUSION:None visible. OTHER: Negative. XR/XR hip RT min 2V IMPRESSION: 1. Small degenerative osteophyte versus fracture fragment along superior rim of acetabulum. Degenerative changes are favored. 2. Otherwise unremarkable right hip. Electronically authenticated by: ADARSH JIMENEZ Date: 10/06/2023 10:45 Dictated By: Adarsh Jimenez M.D. Signed By: 10/06/23 1048 DD/ 1045 TD/TT: Fur Repair Inspector: Procedure Note Radiology, Radiologist, MD - 10/06/2023 [place] [address] XRay Report Signed Patient: AYLA BARBER AMR#: [id number] : 1975Acct:[id number] Age/Sex: 48 / FADM Date: 10/05/23 Loc: RAD Attending Dr: Ermias Hardy M.D. Ordering Physician: Ermias Hardy M.D. Date of Service: 10/05/23 Procedure(s): XR hip RT min 2V Accession Number(s): [id number] cc: Ermias Hardy M.D. The [address] [id number] Patient Name: AYLA BARBER MRN: [id number] date: 1975 Sex: F Assigned Patient Location: RAD Current Patient Location: RAD Accession/Order Number: [id number] Exam Date: 10/05/2023 16:05 Report Date: 10/06/2023 10:45 At the request of: ERMIAS HARDY Procedure: XR hip RT min 2V PROCEDURE: XR hip RT min 2V HISTORY: Right Hip Pain COMPARISON: None. FINDINGS: BONES:Tiny calcification along superior rim of acetabulum. The humeralhead remains seated within the acetabulum with normal articular surfacecontour. No significant joint space narrowing. SOFT TISSUES:No visible soft tissue swelling. EFFUSION:None visible. OTHER: Negative. XR/XR hip RT min 2V IMPRESSION: 1. Small degenerative osteophyte versus fracture fragment along superiorrim of acetabulum. Degenerative changes are favored. 2. Otherwise unremarkable right hip. Electronically authenticated by: ADARSH JIMENEZ Date: 10/06/2023 10:45 Dictated By: Adarsh Jimenez M.D. Signed By:10/06/23 1048 DD/ 1045 TD/TT: Fur Repair Inspector: Ermias Hardy MD IMG XR PROCEDURES Final Result documented in this encounter Visit Diagnoses Not on filedocumented in this encounter Care Teams Sugar Grinder Relationship Specialty Start Date End Date Ermias Hardy MD [address] [place] [address] PCP - [place] [employer] 02/15/23 Ermias Hardy MD [address] [place] [address] PCP - General Family Medicine 06/21/23 documented as of this encounter
--- OUTSIDE RECORDS SUMMARY | 2024-08-24 13:57 | XMS_ITS | Encounter Summary ---
Author Organization [facility] Address [address] [place] [address] Care Team Providers Care Parasitologist Name Role Phone Edy Bautista MD Primary Care Provider [phone] Edy Bautista MD Unavailable Edy Bautista MD Primary Care Provider [phone] Encounter Details Date Type Department Care Team (Late st Contact Info) Description 07/13/2022 Abstract [facility] OB [address] [place] [phone] Ankit Singleton, DO [address] [facility] [address] [place], [facility] Social History Tobacco Use Types Packs/Day Years Used Date Smoking Tobacco: Never Smokeless Tobacco: Never Alcohol Use Standard Drinks/Week Comments Never 0 (1 standard drink = 0.6 oz pur e alcohol) Comments Unknown Sex and Gender Information Value Date Recorded Sex Assigned at Female 07/08/2022 1:01 PM EDT Legal Sex Female 7:16 PM EDT Gender Identity Female 07/08/2022 1:01 PM EDT Sexual Orientation Choose not to disclose 2022 1:01 PM EDT COVID-19 Exposure Response Date Recorded In the last 10 days, have yo u been in contact with someone who was confirmed or suspected to have Coronavirus/COVID-19? No / Unsure 07/08/2022 1:23 PM EDT documented as of this encounter Plan of Treatment Upcoming Encounters Date Type Department Care Team (Late st Contact Info) Description 10/19/2024 2:30 PM EDT Office Visit [facility] [address] [place] [address] Edy Bautista MD [address] [place] [address] 05/24/2025 3:00 PM EDT Office Visit [facility] B[facility] OB [address] [facility] [place] [phone] Mariana Shell PA [address] [facility] [address] [place], [place] [address] documented as of this encounter Visit Diagnoses Not on filedocumented in this encounter Care Teams Parasitologist Relationship Specialty Start Date End Date Edy Bautista MD PCP - General Family Medicine 08/14/22 06/20/23 Edy Bautista MD [address] [place] [address] PCP - [facility] 02/15/23 Edy Bautista MD [address] [place] [address] PCP - General Family Medicine 06/21/23 documented as of this encounter
--- OUTSIDE RECORDS SUMMARY | 2024-08-24 13:57 | XMS_ITS | Encounter Summary ---
Author Organization [facility] Address [address] [place] [address] Care Team Providers Care Timber Selector Name Role Phone Edy Bautista MD Unavailable Edy Bautista MD Primary Care Provider [phone] Encounter Details Date Type Department Care Team (Late st Contact Info) Description 02/07/2024 Orders Only [facility] [address] [place] [address] Vignesh Quezada MD [address] [place] [address] Social History Tobacco Use Types Packs/Day Years [...] Never 06/14/2023 How often do you attend jehovah's witness or yazidi serv ices? Patient declined 06/14/2023 Do you belong to any clubs o r organizations such as jehovah's witness groups, unions, fraternal or athletic groups, or [...] and heating? Not hard at all 06/14/2023 [facility] [place] of Occupat ional Health - Occupational Stress [...] place to sleep or slept in a mcc (including now)? No 06/14/2023 Comments Unknown Sex [...] Visit [facility] [address] [place] [address] Edy Bautista MD [address] [place] [address] 05/24/2025 3:00 PM EDT Office Visit [facility] [address] [facility] [place] [address] Mariana Shell PA [address] [facility] [place] [address] documented as of this encounter Procedures Procedure Name Priority Date/Time Associated Diagnosis Comments CT HEAD/BRAIN W & WO CONTRAST Routine 02/07/2024 10:54 AM EST documented in this encounter Results * CT HEAD/BRAIN W & WO CONTRAST (02/07/2024 10:54 AM EST) Anatomical Region Laterality Modality Radiographic Courtney ging Vignesh Quezada MD IMG XR PROCEDURES Final Resul t documented in this encounter Visit Diagnoses Not on filedocumented in this encounter Care Teams Timber Selector Relationship Specialty Start Date End Date Edy Bautista MD [address] [place] [address] PCP - [place] [employer] 02/15/23 Edy Bautista MD [address] [place] [address] PCP - General Family Medicine 06/21/23 documented as of this encounter
--- OUTSIDE RECORDS SUMMARY | 2024-08-24 13:57 | XMS_ITS | Encounter Summary ---
Author Organization [facility] Address [address] [place] [address] Care Team Providers Care Receiver/Laborer Name Role Phone Edy Bautista MD Primary Care Provider [phone] Edy Bautista MD Unavailable Edy Bautista MD Primary Care Provider [phone] Encounter Details Date Type Department Care Team (Late st Contact Info) Description 08/26/2022 Abstract [facility] [address] [place] [phone] Mariana Shell PA [address] [facility] [address] [place], [facility] Social History Tobacco Use Types Packs/Day Years [...] suspected to have Coronavirus/COVID-19? No / Unsure 08/19/2022 5:32 PM EDT documented as of this encounter Plan of Treatment Upcoming Encounters Date Type Department Care Team (Late Contact Info) Description 10/19/2024 2:30 PM EDT Office Visit [facility] [address] [place] [address] Edy Bautista MD [address] [place] [address] 05/24/2025 3:00 PM EDT Office Visit [facility] [address] [place] [address] Mariana Shell PA [address] [facility] [address] [place], [place] [id number] documented as of this encounter Visit Diagnoses Not on filedocumented in this encounter Care Teams Receiver/Laborer Relationship Specialty Start Date End Date Edy Bautista MD PCP - General Family Medicine 08/14/22 06/20/23 Edy Bautista MD [address] [place] [address] [facility] 02[facility]/23 Edy Bautista MD [address] [place] [address] PCP - General Family Medicine 06/21/23 documented as of this encounter
--- OUTSIDE RECORDS SUMMARY | 2024-08-24 13:57 | XMS_ITS | Encounter Summary ---
Author Organization [facility] Address [address] [place] [address] Care Team Providers Care Banking Specialist Name Role Phone Ermias Hardy MD Unavailable Ermias Hardy MD Primary Care Provider [phone] Encounter Details Date Type Department Care Team (Late st Contact Info) Description 10/06/2023 Clinisync Result Encounter [facility] External Department Unsolicited Ermias Hardy MD [address] [place] [address] Social History Tobacco Use Types Packs/Day Years [...] Never 06/14/2023 How often do you attend druze or christianity serv ices? Patient declined 06/14/2023 Do you belong to any clubs o r organizations such as druze groups, unions, fraternal or athletic groups, or [...] and heating? Not hard at all 06/14/2023 [facility] [place] of Occupat ional Health - Occupational Stress [...] place to sleep or slept in a senior living (including now)? No 06/14/2023 Comments Unknown Sex [...] [facility] [address] [place] [address] Ermias Hardy MD [address] [place] [address] 05/24/2025 3:00 PM EDT Office Visit [facility] [address] [place] [address] Mariana Shell PA [address] [facility] [address] documented as of this encounter Procedures Procedure Name Priority Date/Time Associated Diagnosis Comments XR LUMBAR SPINE 2 OR 3V 10/06/2023 10:51 AM EDT documented in this encounter Results * XR LUMBAR SPINE 2 OR 3V (10/06/2023 10:51 AM EDT) Anatomical Region Laterality Modality Radiographic Courtney ging 10/06/2023 10:5 1 AM EDT Narrative 10/06/2023 10:54 AM EDT The [address] [address] XRay Report Signed Patient: AYLA BARBER MR#: [id number] : 1975 Acct:[id number] Age/Sex: 48 / F ADM Date: 10/05/23 Loc: RAD Attending Dr: Ermias Hardy M.D. Ordering Physician: Ermias Hardy M.D. Date of Service: 10/05/23 Procedure(s): XR lumbar spine 2-3V Accession Number(s): [id number] cc: Ermias Hardy M.D. The [place] [address] Patient Name: AYLA BARBER MRN: [id number] date: 1975 Sex: F Assigned Patient Location: [facility] Current Patient Location: RAD Accession/Order Number: [id number] Exam Date: 10/05/2023 16:05 Report Date: 10/06/2023 10:51 At the request of: ERMIAS HARDY Procedure: XR lumbar spine 2-3V EXAMINATION: XR lumbar spine 2-3V HISTORY: Chronic Bilateral Low Back PAin COMPARISON: No relevant comparison available. FINDINGS: BONES: Mild degenerative facet arthropathy L4-5, L5-S1. No significant spondylosis, scoliosis, fracture, or visible bony lesion. DISC SPACES: No significant disc height narrowing, subluxation, or endplate abnormality. PARASPINOUS: Negative. No paraspinous abnormality is seen. OTHER: Negative. XR/XR lumbar spine 2-3V IMPRESSION: 1. Mild degenerative changes of lower lumbar spine. Consider MRI for further evaluation if symptoms persist. Electronically authenticated by: ADARSH JIMENEZ Date: 10/06/2023 10:51 Dictated By: Adarsh Jimenez M.D. Signed By: 10/06/23 1054 DD/ 1051 TD/TT: Bariatric Surgeon: Procedure Note Radiology, Radiologist, MD - 10/06/2023 [place] [address] XRay Report Signed Patient: AYLA BARBER AMR#: [id number] : 1975Acct:[id number] Age/Sex: 48 / FADM Date: 10/05/23 Loc: RAD Attending Dr: Ermias Hardy M.D. Ordering Physician: Ermias Hardy M.D. Date of Service: 10/05/23 Procedure(s): XR lumbar spine 2-3V Accession Number(s): [id number] cc: Ermias Hardy M.D. The [address] [address] Patient Name: AYLA BARBER MRN: [id number] date: 1975 Sex: F Assigned Patient Location: [facility] Current Patient Location: [facility] Accession/Order Number: [id number] Exam Date: 10/05/2023 16:05 Report Date: 10/06/2023 10:51 At the request of: ERMIAS HARDY Procedure: XR lumbar spine 2-3V EXAMINATION: XR lumbar spine 2-3V HISTORY: Chronic Bilateral Low Back PAin COMPARISON: No relevant comparison available. FINDINGS: BONES: Mild degenerative facet arthropathy L4-5, L5-S1. No significant spondylosis, scoliosis, fracture, or visible bony lesion. DISC SPACES: No significant disc height narrowing, subluxation, orendplate abnormality. PARASPINOUS: Negative. No paraspinous abnormality is seen. OTHER: Negative. XR/XR lumbar spine 2-3V IMPRESSION: 1. Mild degenerative changes of lower lumbar spine. Consider MRI forfurther evaluation if symptoms persist. Electronically authenticated by: ADARSH JIMENEZ Date: 10/06/2023 10:51 Dictated By: Adarsh Jimenez M.D. Signed By:10/06/23 1054 DD/ 1051 TD/TT: Bariatric Surgeon: Ermias Hardy MD IMG XR PROCEDURES Final Result documented in this encounter Visit Diagnoses Not on filedocumented in this encounter Care Teams Banking Specialist Relationship Specialty Start Date End Date Ermias Hardy MD [address] [place] [address] PCP - [place] [employer] 02/15/23 Ermias Hardy MD [address] [place] [address] PCP - General Family Medicine 06/21/23 documented as of this encounter
--- OUTSIDE RECORDS SUMMARY | 2024-08-24 13:57 | XMS_ITS | Encounter Summary ---
Author Organization [facility] Address [address] [place] [address] Care Team Providers Care Equity Sales Assistant Name Role Phone Edy Bautista MD Unavailable Edy Bautista MD Primary Care Provider [phone] Encounter Details Date Type Department Care Team (Late st Contact Info) Description 03/15/2024 [facility] [address] [place] [address] Edy Bautista MD [address] [place] [address] Social History Tobacco Use Types Packs/Day Years [...] Never 06/14/2023 How often do you attend catholic or jew serv ices? Patient declined 06/14/2023 Do you belong to any clubs o r organizations such as catholic groups, unions, fraternal or athletic groups, or [...] and heating? Not hard at all 06/14/2023 [facility] of Occupat ional Health - Occupational Stress [...] place to sleep or slept in a retirement (including now)? No 06/14/2023 Comments Unknown Sex [...] Office Visit [facility] [address] [place] [address] Eyd Bautista MD [address] [place] [address] 05/24/2025 3:00 PM EDT Office Visit [facility] [address] [facility] [place] [address] Mariana Shell PA [address] [facility] [place] [address] documented as of this encounter Visit Diagnoses Not on filedocumented in this encounter Care Teams Equity Sales Assistant Relationship Specialty Start Date End Date Edy Bautista MD [address] [place] [address] PCP - [place] [employer] 02/15/23 Edy Bautista MD [address] [place] [address] PCP - General Family Medicine 06/21/23 documented as of this encounter
--- OUTSIDE RECORDS SUMMARY | 2024-08-24 13:57 | XMS_ITS | Encounter Summary ---
Author Organization [facility] Address [address] [place] [address] Care Team Providers Care Pattern Hanger Name Role Phone Edy Bautista MD Unavailable Edy Bautista MD Primary Care Provider [phone] Reason for Visit * Reason Comments New Med Request Encounter Details Date Type Department Care Team (Late st Contact Info) Description 06/22/2023 [facility] [address] [place] [address] Edy Bautista MD [address] [place] [address] MDD (major depressive disorder), recurrent episode, moderate (HCC); Gastroesophageal reflux disease without esophagitis Social History Tobacco Use Types Packs/Day Years Used Date Smoking Tobacco: Never Smokeless Tobacco: Never Alcohol Use Standard Drinks/Week Comments Never 0 (1 standard drink = 0.6 oz pur e alcohol) Social Connection and Isolation Panel [NHANES] A nswer Date Recorded In a typical week, how many times do you talk on the phone with family, friends, or neighbors? Never 06/14/2023 How often do you get togethe r with friends or relatives? Never 06/14/2023 How often do you attend yarsanism or advent serv ices? Patient declined 06/14/2023 Do you belong to any clubs o r organizations such as yarsanism groups, unions, fraternal or athletic groups, or [...] and heating? Not hard at all 06/14/2023 [facility] [place] of Occupat ional Health - Occupational Stress [...] place to sleep or slept in a prison (including now)? No 06/14/2023 Comments Unknown Sex [...] [facility] [address] [place] [address] Edy Bautista MD [address] [place] [address] 05/24/2025 3:00 PM EDT Office Visit [facility] [address] [facility] [place] [address] Mariana Shell PA [address] [facility] [address] [place], [place] [address] documented as of this encounter Visit Diagnoses Diagnosis MDD (major depressive disorder), recurrent episode, moderate (HCC) Gastroesophageal reflux disease without esophagitis Esophageal reflux documented in this encounter Care Teams Pattern Hanger Relationship Specialty Start Date End Date Edy Bautista MD [address] [place] [address] PCP - [place] [employer] 02/15/23 Edy Bautista MD [address] [place] [address] PCP - General Family Medicine 06/21/23 documented as of this encounter
--- OUTSIDE RECORDS SUMMARY | 2024-08-24 13:57 | XMS_ITS | Encounter Summary ---
Author Organization [facility] Address [address] [place] [address] Care Team Providers Care Dockworker Name Role Phone Edy Bautista MD Unavailable Edy Bautista MD Primary Care Provider [phone] Encounter Details Date Type Department Care Team (Late st Contact Info) Description 05/16/2024 Orders Only [facility] [address] [place] [address] Amanda Romero LPN [email or web address] [place] [address] Social History Tobacco Use Types [...] Never 06/14/2023 How often do you attend muslim or sabianism serv ices? Patient declined 06/14/2023 Do you belong to any clubs o r organizations such as muslim groups, unions, fraternal or athletic groups, or [...] and heating? Not hard at all 06/14/2023 [facility] [place] of Occupat ional Health - Occupational Stress [...] place to sleep or slept in a correction (including now)? No 06/14/2023 Comments Unknown Sex [...] 2:30 PM EDT Office Visit [facility] [address] [place] [address] Edy Bautista MD [address] [place] [address] 05/24/2025 3:00 PM EDT Office Visit [facility] [address] [facility] [place] [address] Mariana Shell PA [address] [facility] [place] [address] documented as of this encounter Procedures Procedure Name Priority Date/Time Associated Diagnosis Comments PAP SMEAR Routine 08/26/2022 12:00 AM EDT documented in this encounter Results * Pap Smear (08/26/2022 12:00 AM EDT) Swab Cervical swab / Unknown Mani Nurse [facility] Ob LAB CYTOLOGY ORDERABLES Final Result EXTERNAL LAB documented in this encounter Visit Diagnoses Not on filedocumented in this encounter Care Teams Dockworker Relationship Specialty Start Date End Date Edy Bautista MD [address] [place] [address] PCP - [place] [employer] 02/15/23 Edy Bautista MD [address] [place] [address] PCP - General Family Medicine 06/21/23 documented as of this encounter
--- OUTSIDE RECORDS SUMMARY | 2024-08-24 13:57 | XMS_ITS | Clinical Summary ---
Author Organization [facility] Address [address] [place] [address] Care Team Providers Care Time Checker Name Role Phone Edy Bautista MD Unavailable Edy Bautista MD Primary Care Provider [phone] Allergies Active Allergy Reactions Criticality Noted Date Comments Omeprazole Unknown 07/14/2022 Medications eletriptan (Relpax) 40 MG tabletIndication s:Non-refractory chronic migraine without aura TAKE 1 TABLET ONE TIME IF NEEDED FOR MIGRAINE. TAKE 1 TABLET AT ONSET OF HEADACHE, MAY REPEAT IN 2 HOURS ONE TIME 9 tablet 14 02/20/19 25 Active tiZANidine (Zanaflex) 4 MG tabletIndication s:Lumbar degenerative disc disease Take 1 tablet (4 mg) by mouth every 8 (eight) hours if needed for muscle spasms 90 tablet 3 03/13/19 25 Active temazepam (Restoril) 30 MG capsuleIndicatio ns:Primary insomnia TAKE 1 CAPSULE AT BEDTIME 90 capsule 1 04/18/19 25 Active pantoprazole (ProtoNix) 40 MG EC tabletIndication s:Gastroesophage al reflux disease without esophagitis TAKE 1 TABLET BY MOUTH IN THE MORNING BEFORE MEALS, DO NOT CRUSH, CHEW, OR SPLIT 30 tablet 3 06/14/19 25 Active amitriptyline (Elavil) 25 MG tabletIndication s:Migraine without aura and with status migrainosus, not intractable TAKE 1 TABLET BY MOUTH AT BEDTIME 30 tablet 2 06/14/19 25 Active metFORMIN XR (Glucophage-XR) 500 MG 24 hr tabletIndication s:PCOS (polycystic ovarian syndrome) TAKE 1 TABLET BY MOUTH IN THE EVENING. TAKE WITH MEALS DO NOT CRUSH, CHEW, OR SPLIT. 30 tablet 5 07/18/19 25 Active lamoTRIgine (LaMICtal) 100 MG tabletIndication s:MDD (major depressive disorder), recurrent episode, moderate (HCC) TAKE 1 TABLET BY MOUTH AT BEDTIME 30 tablet 5 07/18/19 25 Active losartan (Cozaar) 25 MG tabletIndication s:Essential hypertension TAKE 1 TABLET BY MOUTH EVERY DAY 30 tablet 5 08/15/19 25 Active losartan (Cozaar) 25 MG tabletIndication s:Essential hypertension Take 1 tablet (25 mg) by mouth Daily 30 tablet 03/13/19 25 025 Discontinued Active Problems Problem Noted Date Diagnosed Date Acute angle-closure glaucoma 11/02/2023 Assessment & Plan (11/02/2023 2:55 PM EDT): Recently diagnosed and off wellbutrin. Need to avoid SSRIs. Primary osteoarthritis of right hip 10/05/2023 Assessment & Plan (12/20/2023 1:40 PM EST): Pain stable and use zanaflex and tylenol for pain. Use ultram for severe pain. Assessment & Plan (11/02/2023 2:56 PM EDT): Pain unchanged and x-ray with arthritis changes. Discussed PT and possible injections but declined. Use zanaflex and tylenol for pain. Use ultram for severe pain. Assessment & Plan (10/05/2023 3:16 PM EDT): Pain for weeks and possible arthritis changes. Check x-ray. Discussed PT but declined. Use flexeril and tylenol for pain. Lumbar degenerative disc disease 10/05/2023 Assessment & Plan (04/18/2024 4:09 PM EST): Pain stable and use zanaflex and tylenol for pain. Use ultram for severe pain. Assessment & Plan (02/21/2024 3:00 PM EST): Pain stable and use zanaflex and tylenol for pain. Use ultram for severe pain. Assessment & Plan (12/20/2023 1:40 PM EST): Pain stable and use zanaflex and tylenol for pain. Use ultram for severe pain. Assessment & Plan (11/02/2023 2:56 PM EDT): Pain unchanged and x-ray with arthritis changes. Discussed PT and possible injections but declined. Use zanaflex and tylenol for pain. Use ultram for severe pain. Assessment & Plan (10/05/2023 3:15 PM EDT): Pain for weeks and possible arthritis changes. Check x-ray. Discussed PT but declined. Use flexeril and tylenol for pain. Right knee pain 10/05/2023 Assessment & Plan (10/05/2023 3:16 PM EDT): Pain for weeks and possible arthritis changes. Check x-ray. Discussed PT but declined. Use flexeril and tylenol for pain. Class 2 severe obesity due t o excess calories with serious comorbidity and body mass index (BMI) of 37.0 to 37.9 in adult 06/21/2023 Assessment & Plan (02/21/2024 3:00 PM EST): Weight loss indicated. Assessment & Plan (12/20/2023 1:41 PM EST): Discussed proper diet and regular aerobic exercise. Recommend Weight Watchers and need to limit calories and smaller portions. Need to increase activity and regular aerobic exercise several days a week for 30 minutes at a time. Assessment & Plan (10/05/2023 3:16 PM EDT): Patient overweight and difficult time losing weight. [...] month. OARRS reviewed. Continue medications as prescribed. Assessment & Plan (06/21/2023 1:50 PM EDT): Weight up 20 pounds since last visit. Discussed proper diet and regular aerobic exercise. Recommend Weight Watchers and need to limit calories and smaller portions. Need to increase activity and regular aerobic exercise several days a week for 30 minutes at a time. H/O gastric bypass 06/21/2023 MDD (major depressive disord er), recurrent episode, moderate 06/21/2023 Assessment & Plan (04/18/2024 4:09 PM EST): Occasional symptoms and increase lamictal. Assessment & Plan (02/21/2024 3:00 PM EST): Occasional symptoms and increase lamictal. Assessment & Plan (12/20/2023 1:40 PM EST): Occasional symptoms and increase lamictal. Assessment & Plan (11/02/2023 2:56 PM EDT): Stopped wellbutrin and doing well. Monitor and if symptoms worsen can try lamictal. Assessment & Plan (10/05/2023 3:16 PM EDT): Symptoms controlled with wellbutrin and continue. Assessment & Plan (07/27/2023 2:22 PM EDT): Symptoms minimally improved and increase wellbutrin. Assessment & Plan (06/21/2023 1:50 PM EDT): Severe symptoms and try wellbutrin. Warned will take 2-3 weeks to notice improvement in mood. Gastroesophageal reflux disease without esophagi tis 06/21/2023 Assessment & Plan (07/27/2023 2:22 PM EDT): Symptoms controlled with protonix and continue. Assessment & Plan (06/21/2023 1:48 PM EDT): Increased symptoms and try protonix. Abnormal mammogram 07/14/2022 Essential hypertension 07/14/2022 Assessment & Plan (04/18/2024 4:09 PM EST): BP normal and monitor PRN. Assessment & Plan (02/21/2024 3:00 PM EST): BP normal and monitor PRN. Assessment & Plan (12/20/2023 1:39 PM EST): BP normal and monitor PRN. Assessment & Plan (11/02/2023 2:55 PM EDT): BP normal and monitor PRN. Assessment & Plan (10/05/2023 3:15 PM EDT): BP elevated and monitor PRN. If remains elevated will need to treat. Assessment & Plan (07/27/2023 2:22 PM EDT): BP elevated today but previously normal and monitor PRN. Assessment & Plan (06/21/2023 1:48 PM EDT): BP normal and monitor PRN. H/O bilateral salpingectomy 07/14/2022 Hypoglycemia 07/14/2022 Primary insomnia 07/14/2022 Assessment & Plan (04/18/2024 4:10 PM EST): Sleeping well with restoril and continue. Assessment & Plan (02/21/2024 3:00 PM EST): Sleeping well with restoril and continue. Assessment & Plan (12/20/2023 1:40 PM EST): Sleeping well with restoril and continue. Assessment & Plan (11/02/2023 2:56 PM EDT): Sleeping well with restoril and continue. Assessment & Plan (07/27/2023 2:23 PM EDT): Sleeping well with restoril and continue. Assessment & Plan (06/21/2023 1:50 PM EDT): Sleeping well with restoril and continue. Iron deficiency anemia due to dietary causes Carpal tunnel syndrome, right 07/14/2022 Left carpal tunnel syndrome 07/14/2022 Lesion of cervix 07/14/2022 Menorrhagia 07/14/2022 Migraine without aura and wi th status migrainosus, not intractable 07/14/2022 Assessment & Plan (04/18/2024 4:10 PM EST): Migraines improved with elavil and continue. Use relpax PRN. Assessment & Plan (02/21/2024 3:00 PM EST): BOWMAN worse and start elavil to prevent BOWMAN. Use fioricet PRN. Assessment & Plan (07/27/2023 2:23 PM EDT): BOWMAN stable and use relpax PRN. Restless legs syndrome 07/14/2022 Ventral hernia without obstruction or gangrene 0 07/14/2022 PCOS (polycystic ovarian syndrome) 02/28/2013 Assessment & Plan (12/20/2023 1:40 PM EST): Problems with weight and start metformin. Resolved Problems Problem Noted Date Diagnosed Date Resolved Date Disease due to severe acute respiratory syndrome coronavirus 2 (SARS-CoV-2) 07/14/2022 05/0 07/2023 Encounters Date Type Department Care Team Description 08/14/2024 Refill [facility] [address] [place] [address] Edy Bautista MD Essential hypertension 07/15/2024 Refill [facility] [address] [place] [address] Edy Bautista MD PCOS (polycystic ovarian syndrome); MDD (major depressive disorder), recurrent episode, moderate (HCC) 06/13/2024 Refill [facility] [address] [place] [address] Edy Bautista MD Gastroesophageal reflux disease without esophagitis; Migraine without aura and with status migrainosus, not intractable 06/01/2024 Orders Only [facility] [address] [phone] Elise SubramanianJAMESON 05/31/2024 1:00 PM EDT Ancillary Procedure [facility] [address] [place] [phone] PCOS (polycystic ovarian syndrome) 05/30/2024 Travel 05/26/2024 Clinisync Result Encounter [facility] External Department Unsolicited Provider, Generic External Data from Last 3 Months Family History Medical History Relation Name Comments Learning disabilities Brother 1 Juan José Justo III Mental illness Brother 1 Juan José Justo III Learning disabilities Brother 2 Danilo Justo Mental illness Brother 2 Danilo Justo Diabetes Daughter Ajay afshin Learning disabilities Daughter Ajay afshin Asthma Father T1 daughter ajay afshin Diabetes Father T1 daughter ajya afshin Heart disease Father T1 daughter ajay afshin Hyperlipidemia Father T1 daughter ajay afshin Hypertension Father T1 daughter ajay afshin Arthritis Mother Jammie justo Heart disease Mother Jammie justo Hyperlipidemia Mother Jammie justo Hypertension Mother Jammie justo Heart disease Other other family hx Relation Name Status Comments Brother 1 Juan José Justo III Brother 2 Danilo Justo Daughter Ajay afshin Alive 1 daughter Father T1 daughter ajay afshin Alive Mother Jammie justo Alive Other other family hx Siblings Social History Tobacco Use Types Packs/Day Years Used Date Smoking Tobacco: Never Smokeless Tobacco: Never Tobacco Cessation:Counseling Given: Not Answered Alcohol Use Standard Drinks/Week Comments Not Currently [...] Never 06/14/2023 How often do you attend zoroastrian or evangelical serv ices? Patient declined 06/14/2023 Do you belong to any clubs o r organizations such as zoroastrian groups, unions, fraternal or athletic groups, or [...] and heating? Not hard at all 06/14/2023 [facility] - Occupational Stress Questionnaire Answer Date Recorded [...] place to sleep or slept in a long-term (including now)? No 06/14/2023 Comments Unknown Sex and Gender Information Value Date Recorded Sex Assigned at Female 07/08/2022 1:01 PM EDT Legal Sex Female 7:16 PM EDT Gender Identity Female 07/08/2022 1:01 PM EDT Sexual Orientation Choose not to disclose 2022 1:01 PM EDT Last Filed Vital Signs Vital Sign Reading Time Taken Comments Blood Pressure 140/100 05/23/2024 1:06 PM EDT Pulse 82 04/18/2024 3:23 PM EST Temperature 36.4 C (97.5 F) 04/18/2024 3:23 PM EST Respiratory Rate 22 04/18/2024 3:23 PM EST Oxygen Saturation 99% 04/18/2024 3:23 PM EST Inhaled Oxygen Concentration - - Weight 88.5 kg (195 lb) 05/23/2024 1:06 PM EDT Height 157.5 cm (5' 2 ) 04/18/2024 3:23 PM EST Body Mass Index 35.67 04/18/2024 3:23 PM EST Plan of Treatment Upcoming Encounters Date Type Department Care Team (Late st Contact Info) Description 10/19/2024 2:30 PM EDT [facility] [address] [place] [address] Edy Bautista MD [address] [place] [address] 05/24/2025 3:00 PM EDT Office Visit [facility] [address] [place] [phone] Mariana Shell PA [address] [place], [place] [id number] Health Maintenance Due Date Last Done Comments CT Colonography 1975 FIT-DNA 1975 FIT 1975 FOBT 1975 Sigmoidoscopy 1975 Mammogram 08/22/2024 08/23/2023, 05/07/2022 Influenza Vaccine (#1) 2024 Cervical Cancer Screening 05/23/2029 HPV/Cotest 05/23/2029 10/01/2022 Pap Smear 05/23/2029 05/23/2024, 08/26/2022, 03/2 04/2022 Colonoscopy 08/09/2033 08/10/2023, 08/10/2023 Colorectal Cancer Screening 08/09/2033 Procedures Procedure Name Priority Date/Time Associated Diagnosis Comments US PELVIC COMPLETE W/ TV Routine 025 1:24 PM EDT PCOS (polycystic ovarian syndrome) ALL DEHYDROEPIANDROSTERONE Routine 05/26 4:30 PM EDT ALL FOLLICLE STIMULATING HORMONE Routine 05/26/2024 4:30 PM EDT ALL LUTEINIZING HORMONE Routine 05/27/19 4:30 PM EDT ALL DHEA SULFATE Routine 05/26/2024 4:30 PM EDT TBH PREG QUANT HCG Routine 05/26/2024 4: 30 PM EDT ALL THYROID STIM HORMONE Routine 025 4:30 PM EDT ALL THYROXINE (T4) FREE Routine 05/27/19 4:30 PM EDT ALL CBC WITH AUTO DIFF Routine 4:30 PM EDT MLR HEMOGLOBIN A1C Routine 05/26/2024 4: 30 PM EDT PAP SMEAR Routine 05/23/2024 12:00 AM EDT MM TOMOSYNTHESIS SCREENING BI 08/23/2023 3:18 PM EDT THINPREP PAP AND HPV MRNA E6/E7 W/RFL HPV 16,18/45 Routine 10/01/2022 4:19 PM EDT Well woman exam with routine gynecological exam from Last 3 Months or Most Recently Relevant to Health Maintenance Results * US Pelvis w/ TV (05/31/2024 1:24 PM EDT) Anatomical Region Laterality Modality Pelvis Ultrasound 06/03/2024 6:47 PM EDT Narrative 06/03/2024 6:47 PM EDT EXAM: US PELVIC COMPLETE W/ TV HISTORY: PCOS, abnormal cycles, weight gain. COMPARISON: None available. TECHNIQUE: Two-dimensional transabdominal grayscale ultrasound imaging of the pelvis was performed. Color flow Doppler imaging of the ovaries was also performed. Transvaginal was performed. FINDINGS: UTERUS 7.2 x 3.6 x 5.1 cm The uterus is anteflexed in position and demonstrates a normal, homogeneous echotexture. Multiple nabothian cysts are visualized within the cervix. ENDOMETRIUM 0.8 cm The endometrium demonstrates a normal, homogeneous echotexture. RIGHT OVARY 2.0 x 0.9 x 1.6 cm The right ovary demonstrates a normal echotexture. There is normal color Doppler flow. LEFT OVARY 2.8 x 1.6 x 2.4 cm The left ovary demonstrates a normal echotexture. There is normal color Doppler flow. No fluid is present within the cul-de-sac. IMPRESSION: 1. Unremarkable ultrasound of the pelvis. 2. Normal color Doppler flow within the bilateral ovaries. Interpreted by: Electronically signed by SANGEETA DOWNING II, MD, PHD at 03-Jun-2024 06:45:[address] [facility] Procedure Note Sangeeta Downing MD - 06/03/2024 EXAM: US PELVIC COMPLETE W/ TV HISTORY: PCOS, abnormal cycles, weight gain. COMPARISON: None available. TECHNIQUE: Two-dimensional transabdominal grayscale ultrasound imaging ofthe pelvis was performed. Color flow Doppler imaging of the ovaries wasalso performed. Transvaginal was performed. FINDINGS: UTERUS 7.2 x 3.6 x 5.1 cm The uterus is anteflexed in position and demonstrates a normal,homogeneous echotexture. Multiple nabothian cysts are visualized withinthe cervix. ENDOMETRIUM 0.8 cm The endometrium demonstrates a normal, homogeneous echotexture. RIGHT OVARY 2.0 x 0.9 x 1.6 cm The right ovary demonstrates a normal echotexture. There is normal colorDoppler flow. LEFT OVARY 2.8 x 1.6 x 2.4 cm The left ovary demonstrates a normal echotexture. There is normal colorDoppler flow. No fluid is present within the cul-de-sac. IMPRESSION: 1. Unremarkable ultrasound of the pelvis. 2. Normal color Doppler flow within the bilateral ovaries. Interpreted by: Electronically signed by SANGEETA DOWNING II, MD, PHD 06:45:[address] [facility] Dipti Donnelly NP IMG US PROCEDURES Final Resul t * TBH PREG QUANT HCG (05/26/2024 4:30 PM EDT) Pathologist [facility] HCG QUANTITATIVE <1 mIU/mL TB Comment: 5-50 0.2-1 WEEK 50-500 1-2 WEEKS 100-5,000 2-3 WEEKS 500-10,000 3-4 WEEKS 1,000-50,000 4-5 WEEKS 10,000-100,000 5-6 WEEKS 15,000-200,000 6-8 WEEKS 10,000-100,000 2-3 MONTHS 05/26/2024 4:30 PM EDT 05/26/2024 4:34 PM EDT Narrative [facility] - 05/26/2024 5:34 PM EDT Dipti Donnelly NP CLINISYRINA Final Result Performing Organization Address [facility]/State/[facility] Co de Phone Number [facility] * MLR HEMOGLOBIN A1C (05/26/2024 4:30 PM EDT) [facility] GLYCOHEMOGLOBIN A1C 4.7 4.5 - 6.2 % TB Comment: ADA RECOMMENDED LIMIT 4.0 - 6.0 ADA THERAPEUTIC TARGET < 7.0 ACTION SUGGESTED > 7.0 ESTIMATED AVERAGE GLUCOSE 88 mg/dL TB 05/26/2024 4:30 PM EDT 05/26/2024 4:34 PM EDT Narrative [facility] - 05/26/2024 5:23 PM EDT Dipti Donnelly NP CLIN[facility]NC Final Result Performing Organization Address City/State/[facility] Co de Phone Number CLINISYID TB * ALL THYROXINE (T4) FREE (05/26/2024 4:30 PM EDT) FREE T4 1.13 0.76 - 1.46 ng/dL TBH 05/26/2024 4:30 PM EDT 05/26/2024 4:34 PM EDT Narrative [facility] - 05/26/2024 5:30 PM EDT us Dipti Donnelly NP CLIN[facility]NC Final Result Performing Organization Address [facility] de Phone Number CLIN[facility]ID TB * ALL THYROID STIM HORMONE (05/26/2024 4:30 PM EDT) THYROID STIMULATING HORMONE 2.333 0.358 - 3.740 uIU/mL TBH 05/26/2024 4:30 PM EDT 05/26/2024 4:34 PM EDT Narrative CLIN[facility]YNC - 05/26/2024 5:34 PM EDT us Dipti Donnelly NP CLINISYNC Final Result Performing Organization Address [facility] Phone Number CLINISYID TB * ALL LUTEINIZING HORMONE (05/26/2024 4:30 PM EDT) LUTEINIZING HORMONE(LH) 11.7 . mIU/mL TBH Comment: Adult Female Range Follicular phase 2.4 - 12.6 Ovulation phase 14.0 - 95.6 Luteal phase 1.0 - 11.4 Postmenopausal 7.7 - 58.5 05/26/2024 4:30 PM EDT 05/26/2024 4:34 PM EDT Narrative CLINISYNC - 05/28/2024 9:08 AM EDT us Dipti Donnelly NP CLINISYNC Final Result Performing Organization Address [facility] Co de Phone Number CLIN[facility]ID TB * ALL FOLLICLE STIMULATING HORMONE (05/26/2024 4:30 PM EDT) FSH 7.9 . mIU/mL TBH Comment: Adult Female Range Follicular phase 3.5 - 12.5 Ovulation phase 4.7 - 21.5 Luteal phase 1.7 - 7.7 Postmenopausal 25.8 - 134.8 Performed at: [address] [id number] Portfolio Strategist: Luis Eddy PhD, Phone: [phone] 05/26/2024 4:30 PM EDT 05/26/2024 4:34 PM EDT Narrative CLINISYNC - 05/28/2024 9:08 AM EDT Dipti Donnelly NP [facility] Final Result [facility] * ALL DHEA SULFATE (05/26/2024 4:30 PM EDT) Pathologist [facility] DHEA-SULFATE 143.0 41.2 - 243.7 ug/dL TB 05/26/2024 4:30 PM EDT 05/26/2024 4:34 PM EDT Narrative CLINISYNC - 05/28/2024 9:08 AM EDT Dipti Donnelly NP CLINISYID Final Result [facility] * ALL DEHYDROEPIANDROSTERONE (05/26/2024 4:30 PM EDT) Pathologist [facility] DHEA, SERUM 231 31 - 701 ng/dL TBH Comment: This test was developed and its performance characteristics determined by [facility]. It has not been cleared or approved by the Food and Drug Administration. Performed at: [address] [id number] Portfolio Strategist: Chuck Scherer MD, Phone: [phone] 05/26/2024 4:30 PM EDT 05/26/2024 4:34 PM EDT Narrative CLIN[facility]YNC - 06/04/2024 10:08 PM EDT us Generic External Data Provider DUDLEYÁNGELRINA Adalid inal Result [facility] * ALL CBC WITH AUTO DIFF (05/26/2024 4:30 PM EDT) [facility] TB WBC 5.3 4.0 - 11.0 10 3/uL TBH TBH RBC 4.64 4.20 - 5.40 10 6/uL TBH TBH HGB 13.5 12.0 - 16.0 g/dL TBH TBH HCT 41.0 36.0 - 48.0 % TBH TBH MCV 88.4 81.0 - 99.0 fL TBH TBH MCH 29.1 26.7 - 34.0 pg TBH TBH MCHC 32.9 29.9 - 35.2 g/dL TBH TBH RDW 12.6 11.0 - 15.0 % TBH TBH PLT 222 150 - 450 10 3/uL TBH TBH MPV 10.7 9.5 - 13.5 fL TBH NEUTROPHILS PERCENT AUTO 53.6 43.0 - 75.0 % TBH LYMPHOCYTES PERCENT AUTO 34.0 20.5 - 60.0 % TBH MONOCYTES PERCENT AUTO 9.2 1.7 - 12.0 % TBH TBH EO % 2.6 0.9 - 7.0 % TBH BASOPHILS PERCENT AUTO 0.6 0.2 - 2.0 % TBH IMMATURE GRANULOCYTES PCT AUTO 0.0 0.0 - 0.5 % TBH NEUTROPHILS ABSOLUTE AUTO 2.8 1.4 - 6.5 10 3/uL TBH LYMPHOCYTES ABSOLUTE AUTO 1.8 1.2 - 3.8 10 3/uL TBH MONOCYTES ABSOLUTE AUTO 0.5 0.3 - 0.8 10 3/uL TBH TBH EO # 0.1 0.0 - 0.7 10 3/uL TBH BASOPHILS ABSOLUTE AUTO 0.0 0.0 - 0.1 10 3/uL TBH IMMATURE GRANULOCYTES ABS AUTO 0.00 0.00 - 0.03 10 3/uL TBH 05/26/2024 4:30 PM EDT 05/26/2024 4:34 PM EDT Narrative CLINISYNC - 05/26/2024 5:29 PM EDT Dipti Donnelly NP CLINISYNC Final Result Performing Organization Address City/[facility]/ZIP Co de Phone Number CLINISYNC TBH * Pap Smear (05/23/2024 12:00 AM EDT) Swab Cervical swab / Unknown Dipti Donnelly NP LAB CYTOLOGY ORDERABLES Final Result Performing Organization Address City/[facility]/ZIP Co de Phone Number EXTERNAL LAB * MM TOMOSYNTHESIS SCREENING BI (08/23/2023 3:18 PM EDT) Anatomical Region Laterality Modality Other 08/23/2023 3:18 PM EDT Narrative 08/23/2023 3:19 [place] [address] Mammography Report Signed Patient: AYLA BARBER MR#: [id number] : 1975 Acct:[id number] Age/Sex: 48 / F ADM Date: 08/23/23 Loc: MAMMO Attending Dr: Ankit Singleton D.O. Ordering Physician: Ankit Singleton D.O. Results: Date of Service: 08/23/23 Follow Up: Procedure(s): MM tomosynthesis screening BI Accession Number(s): [id number] cc: Ankit Singleton D.O.; Edy Bautista M.D. Patient Name: AYLA BARBER MR#: [id number] : 1975 Exam Date: 08/23/2023 Ordering Doctor: [...] Treatments None Family Cancers None LOCATION: [facility] BREAST COMPOSITION: There are scattered areas of [...] Signed By: 08/23/23 1519 DD/ 1518 TD/TT: Public Relations: Procedure Note Radiology, Radiologist, - 08/23/2023 [place] [address] Mammography Report Signed Patient: AYLA BARBER AMR#: [id number] : 1975Acct:[id number] Age/Sex: 48 / FADM Date: 08/23/23 Loc: MAMMO Attending Dr: Ankit Singleton D.O. Ordering Physician: Ankit Singleton D.O.Results: Date of Service: 08/23/23Follow Up: Procedure(s): MM tomosynthesis screening BI Accession Number(s): [id number] cc: Ankit Singleton D.O.; Edy Bautista M.D. Patient Name: AYLA BARBER MR#: [id number] : 1975 Exam Date: 08/23/2023 Ordering Doctor: [...] Treatments None Family Cancers None LOCATION: [facility] BREAST COMPOSITION: There are scattered areas of [...] M.D. Signed By:08/23/23 1519 DD/ 1518 TD/TT: Public Relations: us Ankit Singleton DO [facility] IMAGING Final Result * THINPREP PAP AND HPV MRNA E6/E7 W/RFL HPV 16,18/45 (10/01/2022 4:19 PM EDT) us Mariana HEBERT LAB BLOOD ORDERABLES Final Resul t EXTERNAL LAB from Last 3 Months or Most Recently Relevant to Health Maintenance Insurance [facility] Care Teams Time Checker Relationship Specialty Start Date End Date Edy Bautista MD [address] [address] PCP - [employer] 02/15/23 Edy Bautista MD [address] [place] [phone] PCP - General Family Medicine 06/21/23
--- NOTE | 2024-08-24 14:23 | MM_ITS ---
Patient Name: SEBAS BARBER MR#: [id number] : 1975 Exam Date: 08/24/2024 Ordering Doctor: DR SIMONA DEJESUS . RADIOLOGY REPORT PROCEDURE: MM TOMOSYNTHESIS SCREENING BI COMPARISON: MM TOMOSYNTHESIS SCREENING BI, 08/23/2023. MG MAMM SCREEN 3D ANDRY CAD, 05/07/2022. MG MAMM SCREEN 3D ANDRY CAD, 04/24/2021. MG MAMM ANDRY SCRN W CAD DIG, 03/06/2013. INDICATIONS: Screening Calculator Name NCI Breast Cancer Risk Assessment Tool 5 Year Breast Cancer Risk 1.30% Lifetime Breast Cancer Risk 12.50% Personal Breast Cancer No Personal Ovarian Cancer No Treatments None Family Cancers None LOCATION: The [facility] BREAST COMPOSITION: There are scattered areas of fibroglandular density. FINDINGS: Developing 5 mm nodule right breast nodule. Posterior depth. 8 cm from the nipple. 12 o'clock position. LEFT BREAST: No significant suspicious finding. DIAGNOSTIC CATEGORY 0--INCOMPLETE: NEED ADDITIONAL IMAGING EVALUATION. RECOMMENDATIONS: ADDITIONAL MAMMOGRAPHIC VIEWS REQUIRED: RIGHT BREAST - spot compression imaging right breast with targeted right breast ultrasound PLEASE NOTE: A NORMAL MAMMOGRAM DOES NOT EXCLUDE THE POSSIBILITY OF BREAST CANCER. A CLINICALLY SUSPICIOUS PALPABLE LUMP SHOULD BE BIOPSIED. Dictated by: Vignesh Stanford DO on 08/24/2024 at 15:34 Approved by: Vignesh Stanford DO on 08/24/2024 at 15:42
== END 2024-08-24 13:55 | disposition home or self-care (01) ==
LOC: MAMMO 13:54
PROVIDERS: PCP Family Medicine; Visit Provider Obstetrics & Gynecology
DX: Z12.31 Encounter for screening mammogram for malignant neoplasm of breast (principal); R92.8 Other abnormal and inconclusive findings on diagnostic imaging of breast
CPT/HCPCS: 77063; 77067

== ENCOUNTER 2024-11-16 10:32 | Outpatient (OUT) | payer BC, SELFPAY ==
--- OUTSIDE RECORDS SUMMARY | 2018-08-17 10:15 | XMS_ITS | Continuity of Care Document ---
Author [facility] Address [address] [place] [address] [place] [address] Phone Care Team Providers Care Reel Film Inspector Name Role Phone Gloria Schuster CNP Unavailable [...] Providers Copied on Encounter OFFICE/OUTPATI ENT VISIT, [facility], [address] [place] [address], [id number], tel:[phone] [facility] No Information 9 Landen Castro. [address], [id number], [place]. tel:[phone] Referring Provider: Gloria Schuster, [address] [place] [address], [address] . tel:[phone] OFFICE/OUTPATI ENT VISIT, [facility], [address] [place] [address], [id number], tel:[phone] [facility] No Information No Information OFFICE/OUTPATI ENT VISIT, [facility], [address] [place] [address] [place], [place], [id number], [place] tel:[phone] [facility] No Information 6 No Information [facility], [address] [place] [address] [address], [place], [id number], [place] tel:[phone] [facility] No Information 6 No Information [place] [employer] [facility], [address] [place] [address] [address], [place], [id number], [place] tel:[phone] [facility] No Information 6 No Information [facility] [employer] [facility], [address] [place] [address] B, [place], [place], [id number], [place] tel:[phone] [facility] No Information 6 No Information [facility] [employer], [address] [place] [address] [address], [place], [place], [id number], [place] tel:[phone] [facility] No Information 6 Roque Boyce. [address] [place] [address] [address] [facility], [place], [place], [id number], [place]. tel:[phone] Referring Provider: Austen Cordoba, [address] [place] [address], [place], [address] . tel:[phone] OFFICE/OUTPATI ENT VISIT, [facility] [employer] [facility], [address] [place] [address], [place], [place], [id number], [place] tel:[phone] [facility] No Information 6 Roque Boyce. [address] [place] [address] [address], [place], [place], [id number], [place]. tel:[phone] Referring Provider: Austen Cordoba, [address] [place] [address], [place], [address] . tel:[phone] OFFICE CONSULTATION [facility] [employer], [address] [place] [address] B, [place], [id number], [place] tel:[phone] [facility] No Information 5 Roque Boyce. [address] [place] [address] 222, [place], [place], [id number], . tel:[phone] Referring Provider: Austen Cordoba, [address] [facility] [address], [place], [address] . tel:[phone] Family History Family Member Type Diagnosis Age At Onset No Information Payers Payer name Insurance type Covered democrat ID Authorradha valencia(s) Jimmy [id number] Social History Type Description Quantity Date Captured [...]
--- OUTSIDE RECORDS SUMMARY | 2024-09-20 13:51 | XMS_ITS ---
Author Name Auto Generated Organization [facility] Care Team Providers Care Floor Mechanic Name Role Phone ERMIAS HARDY Attending Unavailable CALOS THOMAS Attending Unavailable ERMIAS HARDY Attending Unavailable ERMIAS HARDY Attending Unavailable Mariana Shell Attending Unavailable Mariana Shell Admitting Unavailable Ermias Hardy Primary Care Unavailable PROBLEMS DATE TYPE CONDITION / CODE ATTENDING STATUS [facility] 09/20/2024 Unknown Other abnormal a nd inconclusive findings on diagnostic imaging of breast / R92.8(ICD-10) Mariana Shell Active [facility] PROCEDURES No Procedure Records Found RESULTS US BREAST RT LIMITED Observed: 5 3:54 PM Status: COMPLETED Source: [facility] [address] [place] [address] [place] [address] Mammography Report Signed Patient: Ayla Lucero MR#: [id number] : 1975 Acct:[id number] Age/Sex: 49 / F Adm Date: 09/20/24 Loc: OK Room: Type: [facility] Attending Dr: Mariana Shell PADeejayC Ordering Provider: Mariana Shell CIVIL ENGINEERING PROFESSORDeejayC Date of Service: 09/20/24 Procedure(s): MM diagnostic mammo RT w/CAD; US breast RT limited Accession Number(s): ([id number]) MM/MM diagnostic mammo RT w/CAD: R92.8 ([id number]) US/US breast RT limited: R92.8 Copies to: Mariana Hardy MD CLINICAL DATA: Callback asymmetry right breast Right DIAGNOSTIC MAMMOGRAM - WITH TOMOSYNTHESIS AND CAD , rightLIMITED BREAST ULTRASOUND COMPARISON:Mammograms dating back to 2013. Tomosynthesis imaging was obtained using low-dose digital technique. This examination was reviewed with the aid of CAD. Additional ultrasound imaging was also obtained. Mammogram: The right breast is composed of scattered fibroglandular densities. Previous identified asymmetry involving the right breast partially persists on the spot compression views. Ultrasound: At the 12:00 position of the right breast 8 cm from nipple, a simple appearing cyst is noted measuring 5 mm in greatest dimension. Additional presumed area of fat necrosis is seen at the level o'clock position 4 cm from the nipple measuring 1 cm in greatest dimension. MM/MM diagnostic mammo RT w/CAD IMPRESSION: NO MAMMOGRAPHIC OR ULTRASOUND EVIDENCE OF MALIGNANCY. ROUTINE FOLLOW-UP IS RECOMMENDED IN ONE YEAR. RESULT CODE: 2 Benign Findings(s) DENSITY CODE: 2 (approximately 25-50% glandular) There are scattered areas of fibroglandular density. FOLLOW UP: 1YR The false-negative rate of mammography is approximately 10-percent. Management of a palpable abnormality must be based on clinical grounds. Impression dictated by: Ko Her Jr., D.OSherri 09/20/2024 3:54 PM Dictation Location: [place] [address] Dictated By: Ko Her Jr, DO 09/20/24 1554 Signed By: <Electronically signed by Ko Her Jr, DO in OV> 09/20/24 1554 US PELVIC COMPLETE W/ TV Observed: 05/31 12:54 PM Status: F Source: [facility] EPIC Order Comment: US PELVIS-TRA NSVAG IF INDICATED No LMP recorded. EXAM: US PELVIC COMPLETE W/ TV HISTORY: [...] ovaries. Interpreted by: Electronically signed by SANGEETA LUCAS II, MD, PHD at 03-Jun-2024 06:45:41 PM [facility] ALLERGIES No Allergies Records Found ENCOUNTERS ADMIT/DISCHARGE ACCOUNT NUMBER ADMITTING ENCOUNTER CLASS LOCATION SOURCE 09/20/2024/09/21/19 [id number] [facility] 05/31/2024/06/01/19 25 [id number] Ambulatory Building:[facility] 05/23/2024/05/24/19 25 [id number] Ambulatory Building:[facility] 04/18/2024/04/19/19 25 [id number] Ambulatory Building:[facility] 02/21/2024/02/20/19 25 [id number] Ambulatory Building:[facility] 12/20/2023/12/20/19 24 [id number] Ambulatory [facility] PAYERS ENCOUNTER GUARANTOR PAYER SUBSCRIBER SOURCE 09/20/2024 Ayla [address]ero[address] [place] [address]Yos: () Primary Insurance:[place] /[facility] Number: [id number] [place] Date:2024-09-06 Ayla CaraballoB: [id number] [place] [address]Qkx: (HP) [facility] 09/20/2024 Secondary Insurance:Self PayPolicy Number: Effective Date:2024-09-06 NOT GIVENUNK [facility] 05/31/2024 AYLA A CANNDOB: [place], [place] [address]Ewe: (HP) Primary Insurance:BCBSPoli cy Number: [id number] [place] Date:2021-02-15 AYLA A CANNDOB: [id number] [place] AVESIVNV, [facility] EPIC 05/23/2024 AYLA A CANNDOB: [place], [facility]Bym: () Primary Insurance:BCBSPoli cy Number: [id number] [place] Date:2021-02-15 AYLA A CANNDOB: [id number] [place] [facility], [facility] 04/18/2024 AYLA A CANNDOB: [place] [facility]ESSA[facility], [facility]Cxx: () Primary Insurance:BCBSPoli cy Number: [id number] [place] Date:2021-02-15 AYLA A CANNDOB: [id number] [place] AVESVINVBO[place], [facility] EPIC 02/21/2024 AYLA A CANNDOB: [place], [place] [address]Cbe: () Primary Insurance:BCBSPoli cy Number: [id number] [place] Date:2021-02-15 AYLA A CANNDOB: [id number] [place] [address] [facility] EPIC 12/20/2023 AYLA A CANNDOB: [place], [place] [address]Rov: () Primary Insurance:[facility] cy Number: [id number] [place] Date:2021-02-15 AYLA CARABALLOB: [id number] [place] [address] [facility] EPIC
--- OUTSIDE RECORDS SUMMARY | 2024-11-16 10:36 | XMS_ITS | Clinical Summary ---
Author Organization [facility] tem Address [id number] [address] [place] [address] Care Team Providers Care Professor Of Genetics Name Role Phone Edy Bautista MD Primary Care Provider [phone] Allergies No known active allergies Medications potassium chloride (K-DUR,KLOR-CON) 10 MEQ CR tablet Take 20 mEq by mouth daily. Active thiamine (vitamin B-1) 100 mg tablet Take 100 mg by mouth daily. Active biotin 1 mg tablet Take 1,000 mcg by mouth daily. Active Active Problems Comments Yes No known active problems Family History Medical History Relation Name Comments Heart attack Father Hyperlipidemia Father Hypertension Father Hyperlipidemia Mother Hypertension Mother Relation Name Status Comments Father Alive Mother Alive Social History Tobacco Use Types Packs/Day Years Used Date Smoking Tobacco: Never Smokeless Tobacco: Never Alcohol Use Standard Drinks/Week Comments No 0 (1 standard drink = 0.6 oz pur e alcohol) Childcare Answer Date Recorded Childcare Unknown 07/28/2018 Employment Answer Date Recorded Employment Unknown 07/28/2018 Purpose - Life Answer Date Recorded Purpose and direction in life Unknown Comments Yes Sex and Gender Information Value Date Recorded Sex Assigned at Not on file Legal Sex Female 1:49 PM EDT Gender Identity Not on file Sexual Orientation Not on file Last Filed Vital Signs Vital Sign Reading Time Taken Comments Blood Pressure 122/72 11/18/2016 12:00 PM EDT Pulse 54 11/18/2016 12:00 PM EDT Temperature 36.6 C (97.8 F) 11/18/2016 7:51 AM EDT Respiratory Rate 16 11/18/2016 7:51 AM EDT Oxygen Saturation 100% 11/18/2016 12:00 PM EDT Inhaled Oxygen Concentration - - Weight 68.5 kg (151 lb) 11/18/2016 7:51 AM EDT Height 157.5 cm (5' 2 ) 11/18/2016 7:51 AM EDT Body Mass Index 27.62 11/18/2016 7:51 AM EDT Plan of Treatment Not on file Medical Devices Not on file Insurance [facility] Care Teams Professor Of Genetics Relationship Specialty Start Date End Date Edy Bautista MD PCP - General 10/15/16
--- OUTSIDE RECORDS SUMMARY | 2024-11-16 10:36 | XMS_ITS | Encounter Summary ---
Author Organization [facility] Address [address] [place] [address] Care Team Providers Care Football Coach Name Role Phone Ermias Hardy MD Unavailable Ermias Hardy MD Primary Care Provider [phone] Encounter Details Date Type Department Care Team (Late st Contact Info) Description 10/06/2023 Clinisync Result Encounter [facility] External Department Unsolicited Ermias Hardy MD [address] [place] [address] Social History Tobacco Use Types Packs/Day Years [...] Never 06/14/2023 How often do you attend advent or sikh serv ices? Patient declined 06/14/2023 Do you belong to any clubs o r organizations such as advent groups, unions, fraternal or athletic groups, or [...] Care Team (Late st Contact Info) Description 05/24/2025 3:00 PM EDT Office Visit [facility] [address] [place] [address] Mariana Shell PA [address] [facility] [facility] [address] [address] [place], [facility]11 documented as of this encounter Procedures Procedure Name Priority Date/Time Associated Diagnosis Comments XR HIP 2 OR 3 VW RIGHT 10/06/2023 10:45 AM EDT documented in this encounter Results * XR hip right 2 or 3 views (10/06/2023 10:45 AM EDT) Anatomical Region Laterality Modality Lower Extremities, Hip Right Radiograp hic Imaging 10/06/2023 10:4 5 AM EDT Narrative 10/06/2023 10:48 AM EDT The [address] [address] XRay Report Signed Patient: AYLA BARBER MR#: [id number] : 1975 Acct:[id number] Age/Sex: 48 / F ADM Date: 10/05/23 Loc: RAD Attending Dr: Ermias Hardy M.D. Ordering Physician: Ermias Hardy M.D. Date of Service: 10/05/23 Procedure(s): XR hip RT min 2V Accession Number(s): [id number] cc: Ermias Hardy M.D. The [address] [address] Patient Name: AYLA BARBER MRN: [facility]:[id number] date: 1975 Sex: F Assigned Patient Location: RAD Current Patient Location: RAD Accession/Order Number: [id number] Exam Date: 10/05/2023 16:05 Report Date: 10/06/2023 [...] Signed By: 10/06/23 1048 DD/ 1045 TD/TT: Spare Hand: Procedure Note Radiology, Radiologist, MD - 10/06/2023 The [place] [id number] XRay Report Signed Patient: AYLA BARBER AMR#: [id number] : 1975Acct:[id number] Age/Sex: 48 / FADM Date: 10/05/23 Loc: RAD Attending Dr: Ermias Hardy M.D. Ordering Physician: Ermias Hardy M.D. Date of Service: 10/05/23 Procedure(s): XR hip RT min 2V Accession Number(s): [id number] cc: Ermias Hardy M.D. The [address] [address] Patient Name: AYLA BARBER MRN: [id number] date: 1975 Sex: F Assigned Patient Location: RAD Current Patient Location: RAD Accession/Order Number: [id number] Exam Date: 10/05/2023 16:05 Report Date: 10/06/2023 [...] M.D. Signed By:10/06/23 1048 DD/ 1045 TD/TT: Spare Hand: Ermias Hardy MD IMG XR PROCEDURES Final Result documented in this encounter Visit Diagnoses Not on filedocumented in this encounter Care Teams Football Coach Relationship Specialty Start Date End Date Ermias Hardy MD [address] [place] [phone] PCP - [place] [facility] 02/15/23 Ermias Hardy MD [address] [place] [address] PCP - General Family Medicine 06/21/23 documented as of this encounter
--- OUTSIDE RECORDS SUMMARY | 2024-11-16 10:36 | XMS_ITS | Encounter Summary ---
Author Organization [facility] Address [address] [place] [address] Care Team Providers Care Information Security Analyst Name Role Phone Edy Bautista MD Unavailable Edy Bautista MD Primary Care Provider Encounter Details Date Type Department Care Team (Late st Contact Info) Description 08/23/2023 Clinisync Result Encounter [facility] External Department Unsolicited Ankit Singleton, DO [address] [facility] [address] [place] [address] Social History Tobacco Use Types [...] Never 06/14/2023 How often do you attend congregation or mosque serv ices? Patient declined 06/14/2023 Do you belong to any clubs o r organizations such as congregation groups, unions, fraternal or athletic groups, or [...] and heating? Not hard at all 06/14/2023 [facility] - Occupational Stress [...] place to sleep or slept in a fdc (including now)? No 06/14/2023 Comments Unknown Sex [...] EDT Office Visit [facility] [address] [facility] [address] [facility] [address] Mariana Shell PA [address] [facility] [address] [place], [facility] documented as of this encounter Procedures Procedure Name Priority Date/Time Associated Diagnosis Comments MM TOMOSYNTHESIS SCREENING BI 08/23/2023 3:18 PM EDT documented in this encounter Results * MM TOMOSYNTHESIS SCREENING BI (08/23/2023 3:18 PM EDT) Anatomical Region Laterality Modality Other 08/23/2023 3:18 PM EDT Narrative 08/23/2023 3:19 PM EDT The [address] [address] Mammography Report Signed Patient: AYLA BARBER MR#: [id number] : 1975 Acct:[id number] Age/Sex: 48 / F ADM Date: 08/23/23 Loc: MAMMO Attending Dr: Ankit Singleton D.O. Ordering Physician: Ankit Singleton D.O. Results: Date of Service: 08/23/23 Follow Up: Procedure(s): MM tomosynthesis screening BI Accession Number(s): [id number] cc: Ankit Singleton D.O.; Edy Bautista M.D. Patient Name: AYLA BARBER MR#: [id number] : 1975 Exam Date: 08/23/2023 Ordering Doctor: [...] Treatments None Family Cancers None LOCATION: The [facility] BREAST COMPOSITION: There are scattered areas [...] Signed By: 08/23/23 1519 DD/ 1518 TD/TT: Wood Barrel Reconditioner: Procedure Note Radiology, Radiologist, - 08/23/2023 [place] [address] Mammography Report Signed Patient: AYLA BARBER AMR#: [id number] : 1975Acct:[id number] Age/Sex: 48 / FADM Date: 08/23/23 Loc: MAMMO Attending Dr: Ankit Singleton D.O. Ordering Physician: Ankit Singleton D.O.Results: Date of Service: 08/23/23Follow Up: Procedure(s): MM tomosynthesis screening BI Accession Number(s): [id number] cc: Ankit Singleton D.O.; Edy Bautista M.D. Patient Name: ALYA BARBER MR#: [id number] : 1975 Exam Date: 08/23/2023 Ordering Doctor: [...] Treatments None Family Cancers None LOCATION: The [facility] BREAST COMPOSITION: There are scattered areas [...] M.D. Signed By:08/23/23 1519 DD/ 1518 TD/TT: Wood Barrel Reconditioner: Ankit Mani DO [facility] Final Result documented in this encounter Visit Diagnoses Not on filedocumented in this encounter Care Teams Information Security Analyst Relationship Specialty Start Date End Date Edy Bautista MD [address] [place] [address] PCP - [place] [employer] 02/15/23 Edy Bautista MD [address] [place] [address] PCP - General Family Medicine 06/21/23 documented as of this encounter
--- OUTSIDE RECORDS SUMMARY | 2024-11-16 10:36 | XMS_ITS | Encounter Summary ---
Author Organization [facility] Address [address] [place] [place] [address] Care Team Providers Care Director Of Estate Name Role Phone Edy Bautista MD Unavailable Edy Bautista MD Primary Care Provider Encounter Details Date Type Department Care Team (Late st Contact Info) Description 05/16/2024 Orders Only [facility] [address] [place] [address] Amanda Romero LPN [address] [place] [address] Social History Tobacco Use Types [...] Never 06/14/2023 How often do you attend roman catholic or temple serv ices? Patient declined 06/14/2023 Do you belong to any clubs o r organizations such as roman catholic groups, unions, fraternal or athletic groups, [...] and heating? Not hard at all 06/14/2023 [facility] Occupat ional Health - Occupational Stress [...] 05/24/2025 3:00 PM EDT Office Visit [facility] [address] [facility] [place] [address] Mariana Shell PA [address] [facility] [place] [address] documented as of this encounter Procedures Procedure Name Priority Date/Time Associated Diagnosis Comments PAP SMEAR Routine 08/26/2022 12:00 AM EDT documented in this encounter Results * Pap Smear (08/26/2022 12:00 AM EDT) Swab Cervical swab / Unknown us Mani Nurse [facility] Ob LAB CYTOLOGY ORDERABLES Final Result EXTERNAL LAB documented in this encounter Visit Diagnoses Not on filedocumented in this encounter Care Teams Director Of Estate Relationship Specialty Start Date End Date Edy Bautista MD [address] [place] [address] PCP - [place] [employer] 02/15/23 Edy Bautista MD [address] [place] [address] PCP - General Family Medicine 06/21/23 documented as of this encounter
--- OUTSIDE RECORDS SUMMARY | 2024-11-16 10:36 | XMS_ITS | Encounter Summary ---
Author Organization [facility] Address [address] [place] [address] Care Team Providers Care Home Sales Consultant Name Role Phone Edy Bautista MD Unavailable Edy Bautista MD Primary Care Provider Encounter Details Date Type Department Care Team (Late st Contact Info) Description 02/07/2024 Orders Only [facility] [address] [facility] [address] Vignesh Quezada MD [address] [place] [address] Social History Tobacco Use Types Packs/Day Years [...] Never 06/14/2023 How often do you attend baptism or baptism serv ices? Patient declined 06/14/2023 Do you belong to any clubs o r organizations such as baptism groups, unions, fraternal or athletic groups, or [...] and heating? Not hard at all 06/14/2023 [facility] - Occupational Stress Questionnaire Answer Date [...] place to sleep or slept in a snf (including now)? No 06/14/2023 Comments Unknown Sex [...] EDT Office Visit [facility] [address] [address] Mariana Shell PA [address] [place] [address] documented as of this encounter Procedures Procedure [...] on filedocumented in this encounter Care Teams Home Sales Consultant Relationship Specialty Start Date End Date Edy Bautista MD [address] [place] [address] PCP - [place] [employer] 02/15/23 Edy Bautista MD [address] [place] [address] PCP - General Family Medicine 06/21/23 documented as of this encounter
--- OUTSIDE RECORDS SUMMARY | 2024-11-16 10:36 | XMS_ITS | Encounter Summary ---
Author Organization [facility] Address [address] [place] [address] Care Team Providers Care Resident Intern Name Role Phone Edy Bautista MD Unavailable Edy Bautista MD Primary Care Provider [phone] Encounter Details Date Type Department Care Team (Late st Contact Info) Description 09/21/2024 Abstract [facility] [address] [place] [address] Claudia Johns MA Social History Tobacco Use Types Packs/Day Years [...] Never 06/14/2023 How often do you attend restorationism or islam serv ices? Patient declined 06/14/2023 Do you belong to any clubs o r organizations such as restorationism groups, unions, fraternal or athletic groups, or [...] and heating? Not hard at all 06/14/2023 [facility] - Occupational Stress Questionnaire Answer Date [...] place to sleep or slept in a residential (including now)? No 06/14/2023 Comments Unknown Sex [...] 3:00 PM EDT Office Visit [facility]my [facility] [address] [place] [address] Mariana Shell PA [address] [facility] [place] [address] documented as of this encounter Visit Diagnoses Not on filedocumented in this encounter Care Teams Resident Intern Relationship Specialty Start Date End Date Edy Bautista MD [address] [place] [address] PCP - [place] [employer] 02/15/23 Edy Bautista MD [address] [place] [address] PCP - General Family Medicine 06/21/23 documented as of this encounter
--- OUTSIDE RECORDS SUMMARY | 2024-11-16 10:36 | XMS_ITS | Encounter Summary ---
Author Organization [facility] Address [address] [place] [address] Care Team Providers Care Direct Response Consultant Name Role Phone Edy Bautista MD Unavailable Edy Bautista MD Primary Care Provider Reason for Visit * Reason Comments New Med Request Encounter Details Date Type Department Care Team (Late st Contact Info) Description 06/22/2023 Refill [facility] [address] [place] [address] Edy Bautista MD [address] [place] [address] MDD (major depressive disorder), recurrent episode, moderate [...] Never 06/14/2023 How often do you attend buddhism or roman catholic serv ices? Patient declined 06/14/2023 Do you belong to any clubs o r organizations such as buddhism groups, unions, fraternal or athletic groups, or [...] and heating? Not hard at all 06/14/2023 [facility] of Occupat ional Health - Occupational [...] EDT Office Visit [facility] Sammy DAV[facility] [address] [address] Mariana Shell PA [address] [place] [address] documented as of this encounter Visit Diagnoses Diagnosis MDD (major depressive disorder), recurrent episode, moderate (HCC) Gastroesophageal reflux disease without esophagitis Esophageal reflux documented in this encounter Care Teams Direct Response Consultant Relationship Specialty Start Date End Date Edy Bautista MD [address] [place] [phone] PCP - [place] [employer] 02/15/23 Edy Bautista MD [address] [place] [address] PCP - General Family Medicine 06/21/23 documented as of this encounter
--- OUTSIDE RECORDS SUMMARY | 2024-11-16 10:36 | XMS_ITS | Encounter Summary ---
Author Organization [facility] Address [address] [place] [address] Care Team Providers Care Shank Inspector Name Role Phone Ermias Hardy MD Unavailable Ermias Hardy MD Primary Care Provider Encounter Details Date Type Department Care Team (Late st Contact Info) Description 10/06/2023 Clinisync Result Encounter [facility] External Department Unsolicited Ermias Hardy MD [address] [place] [phone] Social History Tobacco Use Types Packs/Day Years [...] How often do you attend baptism or yarsanism serv ices? Patient declined 06/14/2023 Do you [...] heating? Not hard at all 06/14/2023 [facility] - Occupational [...] EDT Office Visit [facility] [address] [place] [address] Mariana Shell PA [address] [facility] [address] [place], [place] [address] documented as of this encounter Procedures Procedure Name Priority Date/Time Associated Diagnosis Comments XR LUMBAR SPINE 2 OR 3V 10/06/2023 10:51 AM EDT documented in this encounter Results * XR LUMBAR SPINE 2 OR 3V (10/06/2023 10:51 AM EDT) Anatomical Region Laterality Modality Radiographic Courtney ging 10/06/2023 10:5 1 AM EDT Narrative 10/06/2023 10:54 AM EDT The [address] [address] XRay Report Signed Patient: AYLA BARBER MR#: [id number] : 1975 Acct:[id number] Age/Sex: 48 / F ADM Date: 10/05/23 Loc: RAD Attending Dr: Ermias Hardy M.D. Ordering Physician: Ermias Hardy M.D. Date of Service: 10/05/23 Procedure(s): XR lumbar spine 2-3V Accession Number(s): [id number] cc: Ermias Hardy M.D. [address] [address] Patient Name: AYLA BARBER MRN: [facility]:[id number] date: 1975 Sex: F Assigned Patient Location: RAD Current Patient Location: RAD Accession/Order Number: [id number] Exam Date: 10/05/2023 16:05 Report Date: 10/06/2023 [...] Signed By: 10/06/23 1054 DD/ 1051 TD/TT: Content Publisher: Procedure Note Radiology, Radiologist, MD - 10/06/2023 The [place] [id number] XRay Report Signed Patient: AYLA BARBER AMR#: [id number] : 1975Acct:[id number] Age/Sex: 48 / FADM Date: 10/05/23 Loc: RAD Attending Dr: Ermias Hardy M.D. Ordering Physician: Ermias Hardy M.D. Date of Service: 10/05/23 Procedure(s): XR lumbar spine 2-3V Accession Number(s): [id number] cc: Ermias Hardy M.D. The [address] [address] Patient Name: AYLA BARBER MRN: [facility]:[id number] date: 1975 Sex: F Assigned Patient Location: RAD Current Patient Location: RAD Accession/Order Number: [id number] Exam Date: 10/05/2023 16:05 Report Date: 10/06/2023 [...] M.D. Signed By:10/06/23 1054 DD/ 1051 TD/TT: Content Publisher: Ermias Hardy MD IMG XR PROCEDURES Final Result documented in this encounter Visit Diagnoses Not on filedocumented in this encounter Care Teams Shank Inspector Relationship Specialty Start Date End Date Ermias Hardy MD [address] [place] [phone] PCP - [place] [employer] 02/15/23 Ermias Hardy MD [address] [place] [address] PCP - General Family Medicine 06/21/23 documented as of this encounter
--- OUTSIDE RECORDS SUMMARY | 2024-11-16 10:36 | XMS_ITS | Encounter Summary ---
Author Organization [facility] Address [address] [facility] [place] [address] Care Team Providers Care Mail Service Coordinator Name Role Phone Edy Bautista MD Primary Care Provider Edy Bautista MD Unavailable Edy Bautista MD Primary Care Provider [phone] Encounter Details Date Type Department Care Team (Late st Contact Info) Description 07/13/2022 Abstract [facility] [address] [place] [address] Ankit Singleton DO [address] [facility] [address] [place], [place] [phone] Social History Tobacco Use Types Packs/Day Years [...] Department Care Team (Late Contact Info) Description 05/24/2025 3:00 PM EDT Office Visit [facility] DAVALOS [address] [place] [phone] Mariana Shell PA [address] [facility] [address] [place], [place] [phone] documented as of this encounter Visit Diagnoses Not on filedocumented in this encounter Care Teams Mail Service Coordinator Relationship Specialty Start Date End Date Edy Bautista MD PCP - General Family Medicine 08/14/22 06/20/23 Edy Bautista MD [address] [place] [address] PCP - [place] [employer] 02/15/23 Edy Bautista MD [address] [place] [address] PCP - General Family Medicine 06/21/23 documented as of this encounter
--- OUTSIDE RECORDS SUMMARY | 2024-11-16 10:36 | XMS_ITS | Encounter Summary ---
Author Organization [facility] Address [address] [place] [address] Care Team Providers Care Sustainability Manager Name Role Phone Edy Bautista MD Unavailable Edy Bautista MD Primary Care Provider [phone] Encounter Details Date Type Department Care Team (Late st Contact Info) Description 06/01/2024 Orders Only [facility] [address] [address] Elise Subramanian LPN [address] [facility] [address] Social History Tobacco Use Types [...] Never 06/14/2023 How often do you attend jainism or denominational serv ices? Patient declined 06/14/2023 Do you belong to any clubs o r organizations such as jainism groups, unions, fraternal or athletic groups, or [...] hard at all 06/14/2023 [facility] [place] [facility] Occupat ional Health - Occupational Stress [...] place to sleep or slept in a skilled nursing (including now)? No 06/14/2023 Comments Unknown Sex [...] Description 05/24/2025 3:00 PM EDT Office Visit [facility] [address] [facility] [address] Mariana Shell PA [address] [facility] [place] [address] documented as of this encounter Procedures Procedure Name Priority Date/Time Associated Diagnosis Comments PAP SMEAR Routine 05/23/2024 12:00 AM EDT documented in this encounter Results * Pap Smear (05/23/2024 12:00 AM EDT) Swab Cervical swab / Unknown Dipti Donnelly MANAGER AGENCY LAB CYTOLOGY ORDERABLES Final Result EXTERNAL LAB documented in this encounter Visit Diagnoses Not on filedocumented in this encounter Care Teams Sustainability Manager Relationship Specialty Start Date End Date Edy Bautista MD [address] [place] [phone] PCP - [place] [employer] 02/15/23 Edy Bautista MD [address] [place] [address] PCP - General Family Medicine 06/21/23 documented as of this encounter
--- OUTSIDE RECORDS SUMMARY | 2024-11-16 10:36 | XMS_ITS | Encounter Summary ---
Author Organization [facility] Address [address] [place] [address] Care Team Providers Care Ground Surveillance Systems Operator Name Role Phone Edy Bautista MD Unavailable Edy Bautista MD Primary Care Provider [phone] Encounter Details Date Type Department Care Team (Late st Contact Info) Description 09/20/2024 External Result Encounter [facility] External Department Unsolicited Mariana Shell, EMILEE [address] [place] [address] [place] [address] Social History Tobacco Use Types [...] Never 06/14/2023 How often do you attend buddhist or amish serv ices? Patient declined 06/14/2023 Do you belong to any clubs o r organizations such as buddhist groups, unions, fraternal or athletic groups, or [...] and heating? Not hard at all 06/14/2023 [facility] Occupat ional Health - [...] place to sleep or slept in a usp (including now)? No 06/14/2023 Comments Unknown Sex [...] EDT Office Visit [facility] [address] [place] [address] Mariana Shell PA [address] [facility] [place] [address] documented as of this encounter Procedures Procedure Name Priority Date/Time Associated Diagnosis Comments BI US BREAST LIMITED RIGHT 09/20/2024 3:54 PM EDT documented in this encounter Results * Right breast US limited (09/20/2024 3:54 PM EDT) Anatomical Region Laterality Modality Breast Right Ultrasound 09/20/2024 3:54 PM EDT Impressions 09/20/2024 3:57 PM EDT NO MAMMOGRAPHIC OR ULTRASOUND EVIDENCE OF MALIGNANCY. [...] Jr., D.OSherri 09/20/2024 3:54 PM Dictation Location: [place] [address] Dictated By: Ko Her Jr, DO 09/20/24 1554 Signed By: <Electronically signed by Ko Her Jr, DO in OV> 09/20/24 1554 Narrative 09/20/2024 3:57 PM EDT [facility] [place] [facility] [address] [place] [address] [place] [address] Mammography Report Signed Patient: Ayla Lucero#: [id number] : 1975 Acct:[id number] Age/Sex: 49 / F Adm Date: 09/20/24 Loc: [place] Room: Type: REG CLI Attending Dr: Mariana Shell PA-C Ordering Provider: Mariana CHUN Date of Service: 09/20/24 Procedure(s): MM diagnostic mammo RT w/CAD; US breast RT limited Accession Number(s): ([id number]) MM/MM diagnostic mammo RT w/CAD: R92.8 ([id number]) US/US breast RT limited: R92.8 Copies to: Mariana Bautista MD CLINICAL DATA: Callback asymmetry right breast [...] greatest dimension. MM/MM diagnostic mammo RT w/CAD Procedure Note Ko Her Jr., DO - 09/20/2024 [place] [address] Mammography Report Signed Patient: Ayla Lucero AMR#: [id number] : 1975Acct:[id number] Age/Sex: 49 / FAdm Date: 09/20/24 Loc: [place] Room:Type: REG CLI Attending Dr: Mariana Shell PA-C Ordering Provider: Mariana CHUN Date of Service: 09/20/24 Procedure(s): MM diagnostic mammo RT w/CAD; US breast RT limited Accession Number(s): ([id number]) MM/MM diagnostic mammo RT w/CAD: R92.8 ([id number]) US/US breast RT limited: R92.8 Copies to: Mariana Shell ULTRASONIC SOLDERERDeejayC Edy Bautista MD CLINICAL DATA: Callback asymmetry right breast Right DIAGNOSTIC MAMMOGRAM - WITH TOMOSYNTHESIS AND CAD , rightLIMITEDBREAST ULTRASOUND COMPARISON:Mammograms dating back to 2013. Tomosynthesis imaging was obtained using low-dose digital technique.This examination was reviewed with the aid of CAD. Additional ultrasound imaging was also obtained. Mammogram: The right breast is composed of scattered fibroglandular densities.Previous identified asymmetry involving the right breast partially persists on the spot compressionviews. Ultrasound: At the 12:00 position of the right breast 8 cm from nipple, a simpleappearing cyst is noted measuring 5 mm in greatest dimension. Additional presumed area of fatnecrosis is seen at the level o'clock position 4 cm from the nipple measuring 1 cm in greatestdimension. MM/MM diagnostic mammo RT w/CAD IMPRESSION: NO MAMMOGRAPHIC OR ULTRASOUND EVIDENCE OF MALIGNANCY. ROUTINE FOLLOW-UP IS RECOMMENDED IN ONE YEAR. RESULT CODE: 2 Benign Findings(s) DENSITY CODE: 2 (approximately 25-50% glandular) There are scattered areasof fibroglandular density. FOLLOW UP: 1YR The false-negative rate of mammography is approximately 10-percent. Management of a palpable abnormality must be based on clinical grounds. Impression dictated by: Ko Her Jr., D.OSherri 09/20/2024 3:54 PM Dictation Location: [place] [address] Dictated By: Ko Her Jr, DO 09/20/24 1554 Signed By: <Electronically signed by Ko Her Jr DO inOV> 09/20/24 1554 Mariana HEBERT IMG US PROCEDURES Final Result documented in this encounter Visit Diagnoses Not on filedocumented in this encounter Care Teams Ground Surveillance Systems Operator Relationship Specialty Start Date End Date Edy Bautista MD [address] [place] [address] PCP - [place] [employer] 02/15/23 Edy Bautista MD [address] [place] [address] PCP - General Family Medicine 06/21/23 documented as of this encounter
--- OUTSIDE RECORDS SUMMARY | 2024-11-16 10:36 | XMS_ITS | Encounter Summary ---
Author Organization [facility] Address [address] [place] [address] Care Team Providers Care Medical Lab Technologist Name Role Phone Edy Bautista MD Primary Care Provider [phone] Edy Bautista MD Unavailable Edy Bautista MD Primary Care Provider [phone] Encounter Details Date Type Department Care Team (Late Contact Info) Description 08/26/2022 Abstract [facility] DAVALOS [address] [facility] [place] [address] Mariana Shell PA [address] [facility] [address] [place], [place] [phone] Social History Tobacco Use Types Packs/Day Years [...] 05/24/2025 3:00 PM EDT Office Visit [facility] [place] [facility] [address] [facility] [place] [address] Mariana Shell PA [address] [facility] [address] [place], [place] [phone] documented as of this encounter Visit Diagnoses Not on filedocumented in this encounter Care Teams Medical Lab Technologist Relationship Specialty Start Date End Date Edy Bautista MD PCP - General Family Medicine 08/14/22 06/20/23 Edy Bautista MD [address] [place] [address] PCP - [place] [employer] 02/15/23 Edy Bautista MD [address] [place] [address] PCP - General Family Medicine 06/21/23 documented as of this encounter
--- OUTSIDE RECORDS SUMMARY | 2024-11-16 10:36 | XMS_ITS | Clinical Summary ---
Author Organization [facility] Address [address] [place] [address] Care Team Providers Care Cotton Expert Name Role Phone Edy Bautista MD Unavailable Edy Bautista MD Primary Care Provider [phone] Allergies Active Allergy Reactions Criticality Noted Date Comments Omeprazole Unknown 07/14/2022 Medications eletriptan (Relpax) 40 MG tabletIndications :Non-refractory chronic migraine without aura TAKE 1 TABLET ONE TIME IF NEEDED FOR MIGRAINE. TAKE 1 TABLET AT ONSET OF HEADACHE, MAY REPEAT IN 2 HOURS ONE TIME 9 tablet 14 5 Active tiZANidine (Zanaflex) 4 MG tabletIndications :Lumbar degenerative disc disease Take 1 tablet (4 mg) by mouth every 8 (eight) hours if needed for muscle spasms 90 tablet 3 5 Active temazepam (Restoril) 30 MG capsuleIndication s:Primary insomnia TAKE 1 CAPSULE AT BEDTIME 90 capsule 1 5 Active pantoprazole (ProtoNix) 40 MG EC tabletIndications :Gastroesophageal reflux disease without esophagitis TAKE 1 TABLET BY MOUTH IN THE MORNING BEFORE MEALS, DO NOT CRUSH, CHEW, OR SPLIT 30 tablet 3 5 Active metFORMIN XR (Glucophage-XR) 500 MG 24 hr tabletIndications :PCOS (polycystic ovarian syndrome) TAKE 1 TABLET BY MOUTH IN THE EVENING. TAKE WITH MEALS DO NOT CRUSH, CHEW, OR SPLIT. 30 tablet 5 5 Active lamoTRIgine (LaMICtal) 100 MG tabletIndications :MDD (major depressive disorder), recurrent episode, moderate (HCC) TAKE 1 TABLET BY MOUTH AT BEDTIME 30 tablet 5 5 Active losartan (Cozaar) 25 MG tabletIndications :Essential hypertension TAKE 1 TABLET BY MOUTH EVERY DAY 30 tablet 5 5 Active amitriptyline (Elavil) 25 MG tabletIndications :Migraine without aura and with status migrainosus, not intractable TAKE 1 TABLET BY MOUTH AT BEDTIME 30 tablet 2 5 Active Active Problems Problem Noted Date Diagnosed Date [...] Encounters Date Type Department Care Team Description 10/02/2024 Refill [facility] [address] [facility] [place] [address] Edy Bautista MD Migraine without aura and with status migrainosus, not intractable 09/21/2024 Abstract [facility] DAV[facility] [address] [facility] [place] [address] Claudia Johns MA 09/20/2024 External Result Encounter NOMS External Department Unsolicited Mariana Shell PA 08/31/2024 Telephone [facility] [address] [facility] [place] [address] Elise Subramanian LPN 08/24/2024 Clinisync Result Encounter [facility] External Department Unsolicited Provider, Generic External Data from Last 3 Months Family History Medical History Relation Name Comments Learning disabilities Brother 1 Juan José Justo III Mental illness Brother 1 Juan José Justo III Learning disabilities Brother 2 Danilo Kemp Mental illness Brother 2 Danilo Kemp Diabetes Daughter Ajay barber Learning disabilities Daughter Ajay barber Asthma Father T1 daughter ajay nic Diabetes Father T1 daughter ajay barber Heart disease Father T1 daughter ajay nic Hyperlipidemia Father T1 daughter ajay barber Hypertension Father T1 daughter ajay barber Arthritis Mother Jammie justo Heart disease Mother Jammie justo Hyperlipidemia Mother Jammie justo Hypertension Mother Jammie justo Heart disease Other other family hx Relation Name Status Comments Brother 1 Juan José Justo III Brother 2 Danilo Kemp Daughter Ajay barber Alive 1 daughter Father T1 daughter ajay nic Alive Mother Jammie kemp Alive Other other family hx Siblings Social [...] often do you attend jehovah's witness or anglican serv ices? Patient declined 06/14/2023 Do you [...] and heating? Not hard at all 06/14/2023 [place] of Occupat ional Health - Occupational Stress [...] EDT Office Visit [facility] [address] [facility] [place] [address] Mariana Shell PA [address] [facility] [place] [address] Health Maintenance Due Date Last Done Comments CT Colonography 1975 FIT-DNA 1975 FIT 1975 FOBT 1975 Sigmoidoscopy 1975 Influenza Vaccine (#1) 2024 Mammogram 08/24/2025 08/24/2024, 08/23/2023, 04/16 Cervical Cancer Screening 05/23/2029 HPV/Cotest 05/23/2029 10/01/2022 Pap Smear 05/23/2029 05/23/2024, 08/26/2022, 04/16 Colonoscopy 08/09/2033 08/10/2023, 08/10/2023 Colorectal Cancer Screening 08/09/2033 Procedures Procedure Name Priority Date/Time Associated Diagnosis Comments BI US BREAST LIMITED RIGHT 09/20/2024 3:54 PM EDT MM TOMOSYNTHESIS SCREENING BI 08/24/2024 3:42 PM EDT PAP SMEAR Routine 05/23/2024 12:00 AM EDT THINPREP PAP AND HPV MRNA E6/E7 W/RFL HPV 16,18/45 Routine 10/01/2022 4:19 PM EDT Well woman exam with routine gynecological exam from Last 3 Months or Most Recently Relevant to Health Maintenance Results * Right breast US limited (09/20/2024 [...] grounds. Impression dictated by: Ko Her Jr., D.O. 09/20/2024 3:54 PM Dictation Location: [place] [address] Dictated By: Ko Her Jr, DO 09/20/24 1554 Signed By: <Electronically signed by Ko Her Jr, DO in OV> 09/20/24 1554 Narrative 09/20/2024 3:57 PM EDT [facility] [address] [place] [address] Mammography Report Signed Patient: Ayla Barber MR#: [id number] : 1975 Acct:[id number] Age/Sex: 49 / F Adm Date: 09/20/24 Loc: [place] Room: Type: [facility] Attending Dr: Mariana Shell PA-C Ordering Provider: Mariana CHUN Date of Service: 09/20/24 Procedure(s): MM diagnostic mammo RT w/CAD; US breast RT limited Accession Number(s): ([id number]) MM/MM diagnostic mammo RT w/CAD: R92.8 ([id number]) US/US breast RT limited: R92.8 Copies to: [...] Note Ko Her Jr., DO - 09/20/2024 [facility] [address] [place] [address] Mammography Report Signed Patient: Ayla Barber AMR#: [id number] : 1975Acct:[id number] Age/Sex: 49 / FAdm Date: 09/20/24 Loc: [place] Room:Type: [facility] Attending Dr: Mariana Shell PA-C Ordering Provider: Mariana CHUN Date of Service: 09/20/24 Procedure(s): MM diagnostic mammo RT w/CAD; US breast RT limited Accession Number(s): ([id number]) MM/MM diagnostic mammo RT w/CAD: R92.8 ([id number]) US/US breast RT limited: R92.8 Copies to: [...] clinical grounds. Impression dictated by: Ko Her Jr. DSherriOSherri 09/20/2024 3:54 PM Dictation Location: [place] [address] Dictated By: Ko Her Jr, DO 09/20/24 1554 Signed By: <Electronically signed by Ko Her Jr, DO inOV> 09/20/24 1554 us Mariana HEBERT IMG US PROCEDURES Final Result * MM TOMOSYNTHESIS SCREENING BI (08/24/2024 3:42 PM EDT) Anatomical Region Laterality Modality Other 08/24/2024 3:42 PM EDT Narrative 08/24/2024 3:43 [place] [address] Mammography Report Signed Patient: AYLA BARBER MR#: [id number] : 1975 Acct:[id number] Age/Sex: 49 / F ADM Date: 08/24/24 Loc: MAMMO Attending Dr: Simona Singleton D.O. Ordering Physician: Simona Singleton D.O. Results: Date of Service: 08/24/24 Follow Up: Procedure(s): MM tomosynthesis screening BI Accession Number(s): [id number] cc: Simona Singleton D.O.; Edy Bautista M.D. Patient Name: AYLA BARBER MR#: [id number] : 1975 Exam Date: 08/24/2024 Ordering Doctor: DR SIMONA SINGLETON . RADIOLOGY REPORT PROCEDURE: MM TOMOSYNTHESIS SCREENING BI COMPARISON: MM TOMOSYNTHESIS SCREENING BI, 08/23/2023. MG MAMM SCREEN 3D ANDRY CAD, 05/07/2022. MG MAMM SCREEN 3D ANDRY CAD, 04/24/2021. MG MAMM ANDRY SCRN W CAD DIG, 03/06/2013. INDICATIONS: Screening Calculator Name NCI Breast Cancer Risk Assessment Tool 5 Year Breast Cancer Risk 1.30% Lifetime Breast Cancer Risk 12.50% Personal Breast Cancer No Personal Ovarian Cancer No Treatments None Family Cancers None LOCATION: [facility] BREAST COMPOSITION: There are scattered areas of fibroglandular density. FINDINGS: Developing 5 mm nodule right breast nodule. Posterior depth. 8 cm from the nipple. 12 o'clock position. LEFT BREAST: No significant suspicious finding. DIAGNOSTIC CATEGORY 0--INCOMPLETE: NEED ADDITIONAL IMAGING EVALUATION. RECOMMENDATIONS: ADDITIONAL MAMMOGRAPHIC VIEWS REQUIRED: RIGHT BREAST - spot compression imaging right breast with targeted right breast ultrasound PLEASE NOTE: A NORMAL MAMMOGRAM DOES NOT EXCLUDE THE POSSIBILITY OF BREAST CANCER. A CLINICALLY SUSPICIOUS PALPABLE LUMP SHOULD BE BIOPSIED. Dictated by: Vignesh Stanford DO on 08/24/2024 at 15:34 Approved by: Vignesh Stanford DO on 08/24/2024 at 15:42 Dictated By: Vignesh Stanford D.O. Signed By: 08/24/24 1543 DD/ 1542 TD/TT: Box Sealing Inspector: Procedure Note Radiology, Radiologist, MD - 08/24/2024 [place] [address] Mammography Report Signed Patient: AYLA BARBER AMR#: [id number] : 1975Acct:[id number] Age/Sex: 49 / FADM Date: 08/24/24 Loc: MAMMO Attending Dr: Simona Singleton D.O. Ordering Physician: Simona Singleton D.O.Results: Date of Service: 08/24/24Follow Up: Procedure(s): MM tomosynthesis screening BI Accession Number(s): [id number] cc: Simona Singleton D.O.; Edy Bautista M.D. Patient Name: AYLA BARBER MR#: [id number] : 1975 Exam Date: 08/24/2024 Ordering Doctor: DR SIMONA SINGLETON . RADIOLOGY REPORT PROCEDURE: MM TOMOSYNTHESIS SCREENING BI COMPARISON: MM TOMOSYNTHESIS SCREENING BI, 08/23/2023. MG MAMM HKHMIE2S ANDRY CAD, 05/07/2022. MG MAMM SCREEN 3D ANDRY CAD, 04/24/2021. MG MAMM BILSCRN W CAD DIG, 03/06/2013. INDICATIONS: Screening Calculator Name NCI Breast Cancer Risk Assessment Tool 5 Year Breast Cancer Risk 1.30% Lifetime Breast Cancer Risk 12.50% Personal Breast Cancer No Personal Ovarian Cancer No Treatments None Family Cancers None LOCATION: [facility] BREAST COMPOSITION: There are scattered areas of fibroglandulardensity. FINDINGS: Developing 5 mm nodule right breast nodule. Posterior depth. 8 cm fromthe nipple. 12 o'clock position. LEFT BREAST: No significant suspicious finding. DIAGNOSTIC CATEGORY 0--INCOMPLETE: NEED ADDITIONAL IMAGING EVALUATION. RECOMMENDATIONS: ADDITIONAL MAMMOGRAPHIC VIEWS REQUIRED: RIGHT BREAST - spot compression imaging right breast with targeted right breast ultrasound PLEASE NOTE: A NORMAL MAMMOGRAM DOES NOT EXCLUDE THE POSSIBILITY OFBREAST CANCER. A CLINICALLY SUSPICIOUS PALPABLE LUMP SHOULD BE BIOPSIED. Dictated by: Vignesh Stanford DO on 08/24/2024 at 15:34 Approved by: Vignesh Stanford DO on 08/24/2024 at 15:42 Dictated By: Vignesh Stanford D.O. Signed By:08/24/24 1543 DD/ 1542 TD/TT: Box Sealing Inspector: us Generic External Data Provider [facility] Final Result * Pap Smear (05/23/2024 12:00 AM EDT) Swab Cervical swab / Unknown us Dipti Donnelly NP LAB CYTOLOGY ORDERABLES Final Result EXTERNAL LAB * THINPREP PAP AND HPV MRNA E6/E7 W/RFL HPV 16,18/45 (10/01/2022 4:19 PM EDT) us Mariana HEBERT LAB BLOOD ORDERABLES Final Resul t EXTERNAL LAB from Last 3 Months or Most Recently Relevant to Health Maintenance Insurance [employer] Care Teams Cotton Expert Relationship Specialty Start Date End Date Edy Bautista MD [address] [place] [address] PCP - [place] [employer] 02/15/23 Edy Bautista MD [address] [place] [address] PCP - General Family Medicine 06/21/23
--- OUTSIDE RECORDS SUMMARY | 2024-11-16 10:37 | XMS_ITS | Encounter Summary ---
Author Organization [facility] Address [address] [place] [address] Care Team Providers Care Qualitative Researcher Name Role Phone Edy Bautista MD Unavailable Edy Bautista MD Primary Care Provider [phone] Encounter Details Date Type Department Care Team (Late st Contact Info) Description 03/15/2024 Orders Only [facility] [address] [place] [address] Edy Bautista MD [address] [place] [id number] Social History Tobacco Use Types Packs/Day Years [...] Never 06/14/2023 How often do you attend sabianist or caodaism serv ices? Patient declined 06/14/2023 Do you belong to any clubs o r organizations such as sabianist groups, unions, fraternal or athletic groups, or [...] and heating? Not hard at all 06/14/2023 [facility] - [...] 3:00 PM EDT Office Visit [facility] [address] [place] [id number] Mariana Shell PA [address] [place] [address] documented as of this encounter Visit Diagnoses Not on filedocumented in this encounter Care Teams Qualitative Researcher Relationship Specialty Start Date End Date Edy Bautista MD [address] [place] [phone] PCP - [place] [employer] 02/15/23 Edy Bautista MD [address] [place] [phone] PCP - General Family Medicine 06/21/23 documented as of this encounter
[2024-11-16 11:55] LABS: Hematocrit 39.4 % (36.0-48.0); Hemoglobin 13.2 g/dL (12.0-16.0); Immature Granulocytes Abs Auto 0.01 10^3/uL (0.00-0.03); Immature Granulocytes Pct Auto 0.2 % (0.0-0.5); Lymphocytes Absolute Auto 2.3 10^3/uL (1.2-3.8); Mean Corpuscular HGB Conc 33.5 g/dL (29.9-35.2); Mean Corpuscular Hemoglobin 30.3 pg (26.7-34.0); Mean Corpuscular Volume 90.6 fL (81.0-99.0); Platelet Count 251 10^3/uL (150-450); Red Blood Count 4.35 10^6/uL (4.20-5.40); White Blood Count 5.9 10^3/uL (4.0-11.0)
[2024-11-16 12:28] LABS: Alanine Aminotransferase 20 U/L (14-59); Albumin Globulin Ratio 1.1; Albumin Level 3.6 g/dL (3.4-5.0); Alkaline Phosphatase 68 U/L (46-116); Anion Gap 13.0; Aspartate Amino Transferase 13 U/L (15-37); Blood Urea Nitrogen 17.0 mg/dL (7.0-18.0); Calcium 8.7 mg/dL (8.5-10.1); Carbon Dioxide 25.6 mmol/L (21.0-32.0); Chloride 106 mmol/L (98-107); Cholesterol 180 mg/dL (<=200); Estimated GFR (African America >60 (>=60 mL/min/1.73m^2); Estimated GFR (Non-African Ame >60 (>=60 mL/min/1.73m^2); Globulin 3.2 g/dL; Glucose 78 mg/dL (74-106); HDL Cholesterol 60 mg/dL (40-60); Potassium 3.6 mmol/L (3.5-5.1); Sodium 141 mmol/L (136-145); TSH W/ REFLEX FT4 3.056 uIU/mL (0.358-3.740); Total Protein 6.8 g/dL (6.4-8.2); Triglycerides 56 mg/dL (<=150); VLDL CHOLESTEROL 11.2 mg/dL
== END 2024-11-16 10:33 | disposition home or self-care (01) ==
LOC: LAB 10:34
PROVIDERS: PCP Family Medicine; Visit Provider Family Medicine
DX: Z00.00 Encounter for general adult medical examination without abnormal findings (principal)
CPT/HCPCS: 36415; 80053; 80061; 83036; 84443; 85025